=== PATIENT | male | born 1955 | race Caucasian/White ===

== ENCOUNTER 2020-01-09 15:08 | Inpatient (IN) | payer OTHER ==
[~2020-01-09] VITALS: Ht 182.9 cm; Wt 150.0 kg
[2020-01-09 15:59] LABS: BASOPHILS ABSOLUTE AUTO 0.04 K/mm3 (0.00-0.23); BASOPHILS PERCENT AUTO 0 % (0-2); EOSINOPHILS ABSOLUTE AUTO 0.21 K/mm3 (0.00-0.68); EOSINOPHILS PERCENT AUTO 2 % (0-6); Hematocrit 44.9 % (37.0-53.0); Hemoglobin 14.6 g/dL (13.5-17.5); IMMATURE GRAN ABSOLUTE AUTO 0.05 K/mm3 (0.00-0.10); IMMATURE GRAN PERCENT AUTO 1 % (0-1); LYMPHOCYTES ABSOLUTE AUTO 1.23 K/mm3 (0.84-5.20); LYMPHOCYTES PERCENT AUTO 14 % (21-46); MONOCYTES ABSOLUTE AUTO 0.65 K/mm3 (0.16-1.47); MONOCYTES PERCENT AUTO 7 % (4-13); Mean Corpuscular HGB 29.3 pg (26.0-34.0); Mean Corpuscular HGB Conc 32.5 g/dL (31.5-36.5); Mean Corpuscular Volume 90 fL (80-100); Mean Platelet Volume 9.4 fL (9.1-12.4); NEUTROPHILS ABSOLUTE AUTO 6.76 K/mm3 (1.96-9.15); NEUTROPHILS PERCENT AUTO 76 % (41-73); Platelet Count 251 K/mm3 (150-400); RDW Coefficient Variation 14.9 % (11.7-14.2); RDW Standard Deviation 48.8 fL (35.1-46.3); Red Blood Cell Count 4.99 M/mm3 (4.30-5.90); White Blood Cell Count 8.94 K/mm3 (4.00-11.30)
[2020-01-09 16:23] LABS: Alanine Aminotransfer (ALT/SGP 41 U/L (12-78); Albumin, Blood 3.8 g/dL (3.4-5.0); Albumin/Globulin Ratio 1.1 (0.8-1.8); Alk Phos 164 U/L (50-136); Anion Gap 6 mmol/L (6-16); Aspartate Aminotrans (AST/SGOT 32 U/L (12-37); Bilirubin, Total 1.3 mg/dL (0.1-1.0); Blood Urea Nitrogen 21 mg/dL (8-24); Bun/Creatinine Ratio 19.1 (12.0-20.0); CO2, Blood 28 mmol/L (21-32); Calcium, Blood 8.6 mg/dL (8.5-10.1); Chloride, Blood 105 mmol/L (98-108); Globulin, Blood 3.4 g/dL (2.2-4.0); Glomerular Filtration Rate >60 (60-); Glucose, Blood 147 mg/dL (70-99); Potassium, Blood 3.9 mmol/L (3.5-5.5); Sodium, Blood 139 mmol/L (136-145); Total Protein, Blood 7.2 g/dL (6.4-8.2); Troponin I <0.015 ng/mL (0.000-0.040)
[2020-01-09] MEDS ORDERED: ALLO300 PO (17:50)
[2020-01-09] MEDS ORDERED: Amiodarone HCl200 MG PO (17:51)
[2020-01-09] MEDS ORDERED: METO100ER PO (17:52)
[2020-01-09] MEDS ORDERED: Prinivil10 MG PO (17:53)
[2020-01-09] MEDS ORDERED: FURO40 PO (17:54)
[2020-01-09] MEDS ORDERED: DULO30 PO (17:54)
[2020-01-09] MEDS ORDERED: ELIQUIS5 M2 PO (17:55)
[2020-01-09] MEDS ORDERED: LIPITOR80 MG PO (17:56)
[2020-01-09] MEDS ORDERED: METF500 PO (17:56)
[2020-01-09] MEDS ORDERED: TRAZ50 PO (17:57)
[2020-01-10 00:37] LABS: Hematocrit 41.9 % (37.0-53.0); Hemoglobin 13.8 g/dL (13.5-17.5); Mean Corpuscular HGB 29.7 pg (26.0-34.0); Mean Corpuscular HGB Conc 32.9 g/dL (31.5-36.5); Mean Corpuscular Volume 90 fL (80-100); Mean Platelet Volume 9.5 fL (9.1-12.4); Platelet Count 209 K/mm3 (150-400); RDW Coefficient Variation 14.9 % (11.7-14.2); Red Blood Cell Count 4.64 M/mm3 (4.30-5.90); White Blood Cell Count 8.44 K/mm3 (4.00-11.30)
[2020-01-10 00:53] LABS: Anion Gap 3 mmol/L (6-16); Blood Urea Nitrogen 25 mg/dL (8-24); CO2, Blood 32 mmol/L (21-32); Calcium, Blood 8.3 mg/dL (8.5-10.1); Chloride, Blood 106 mmol/L (98-108); Creatinine, Blood 1.19 mg/dL (0.60-1.20); Glomerular Filtration Rate >60 (60-); Glucose, Blood 119 mg/dL (70-99); Potassium, Blood 3.9 mmol/L (3.5-5.5); Sodium, Blood 141 mmol/L (136-145)
--- NOTE | 2020-01-10 05:20 | NUR ---
SHIFT SUMMARY PT SLEEPING IN ROOM COMFORTABLY AT THIS TIME. NO ACUTE CHANGES IN STATUS SINCE ARRIVAL. PT HAS DENIED ANY FUTHER CP SINCE ARRIVAL. REPS EVEN UNLABORED ON RA W/ SATS >92%, PT WEARS CPAP AT NOC D/T STEPH. CARDIZEM GTT INFUSING IN PIV AT 5ML/HR. PT REMAINS IN AFIB W/ RATE AVG 80'S-90'S. PT DENIES OTHER NEEDS AND IS INDEPENDENT IN ROOM. CALL LIGHT IN REACH.
--- NOTE | 2020-01-10 11:34 | NUR ---
PHARMACY FAXED FOR NEW BAG OF CARDIZEM, PT INTERMITTENTLY AMBULATING IN [place]
--- NOTE | 2020-01-10 11:50 | NUR ---
Patient is sitting on EOB and alert. Patient shares about his medical issues, his recent move to the area, his family, and his Zoroastrianism sonja. Patient explains about the process he is in with the series of tests being run. Patient talks about his concerns. I listen empathically, normalize patient's experience and provide pastoral mental health counselor and prayer. Patient responds well and shows signs of an elevated mood and voices appreciation for the visit. I will continue to remain available to patient and family.
--- NOTE | 2020-01-10 17:48 | NUR ---
SHIFT NOTE PT HAS REMAINED A/O X3, INDEPENDANT IN ROOM AMBULATING IN [place] WITH EVEN STEADY GAIT. PT IS HAPPY AND CONVERSIVE IN FULL SENTENCES T/O THE DAY. CARDIZEM WAS STOPPED THIS AM BY DR BONILLA. PT HAS BEEN RESTING WELL IN ROOM T/O THE DAY. NO ACUTE CHANGES THIS SHIFT
--- NOTE | 2020-01-10 19:15 | NUR ---
Assumed Care Assumed care of pt at approx 1900, pt presents sitting in chair, at bedside, pt alert and oriented, conversing appropriately with staff, VSS. Pt denies chest pressure at this time. Tele shows afib with rates 100-105, denies palpitations at this time. See shift assessment for detailed systems assessment. Plan for NPO after midnight for stress test at 0830 tomorrow AM. No acute concerns to note at this time.
--- NOTE | 2020-01-11 05:43 | NUR ---
Shift Summary Pt with no acute events overnight. He remains in afib with rates 100-105. Denies chest pressure, palpitations, SOB all shift. VSS. Pt with steady gait, ambulates to bathroom without assistance, denies dizziness with ambulation. Plan for stress test today, NPO since midnight per orders. No caffine since 1800 01/09. Pt remains alert and oriented, no acute changes from initial shift assessment. Will continue to monitor.
--- NOTE | 2020-01-11 06:15 | NUR ---
Pt converted from Afib to Sinus Pete at 45 BPM. Pt asx, alert. Pt instructed to use call light before ambulation d/t change in rhythm and rate. Pt verbalizes understanding and compliance.
--- NOTE | 2020-01-11 12:30 | NUR ---
UPDATE: DR SPENCER CALLED AND STATED PT STRESS TEST ABNORMAL AND TO CALL DR BONILLA TO NOTIFY OF THE RESULTS UPLOADED. CALL TO DR BONILLA TO HIS CELL PHONE MESSAGE LEFT. DR IRENE MONROE TO THE UNIT AT APPROX 1230 REVIEWS THE SITUATION WITH THE PT. PT AND FAMILY EDUCATED ON ANGIOGRAM TO BE DONE PT SIGNS CONSENT AND AGREES TO PLAN OF CARE.
--- NOTE | 2020-01-11 13:15 | NUR ---
[facility]
--- NOTE | 2020-01-11 14:57 | NUR ---
RETURN FROM TIE PRESSER: PT ARIVES FROM [facility] A/O X 4. DENEIS ANY CHEST PAIN OR PRESSURE. R TR-BAND IN PLACE WITH APROX 12ML OF AIR IN. NO SWELLING, REDNESS OR TENDERNESS NOTED AT THIS R RADIAL SITE. PT AMBULATS TO THE BATHROOM AFTER ARIVING TO THE ROOM. NO ACUTE DISTRESS NOTED. REPORT OF NO STENTS PLACED WHILE IN ANGIO. CALL LIGHT IN REACH. PT IS SITTING UP IN THE CHAIR AT THE BEDSIDE. PT EDUCATED ON R ARM/HAND RESTRICTIONS AND KEEPING ARM BOARD IN PLACE TO RESTRICT MOVEMENT.
--- NOTE | 2020-01-11 19:30 | NUR ---
ASSUMED CARE BEDSIDE REPORT RECIEVED. PT IS AWAKE, ALERT, AND ORIENTED. PT ON ROOM AIR. VITAL SIGNS STABLE. PT DENIES CHEST PAIN OR DISCOMFORT. TR BAND IN PLACE TO RIGHT RADIAL SITE. ARM BOARD IN PLACE. SITE IS SOFT, NONTENDER, NO HEMATOMA. PT INDEPENDENT IN ROOM. WILL CONTINUE TO MONITOR.
--- NOTE | 2020-01-12 05:23 | NUR ---
SHIFT SUMMARY NO ACUTE CHANGES THIS SHIFT. PT HAS SLEPT OFF AND ON THROUGHOUT THE SHIFT. WHEN AWAKE PT REMAINS ALERT AND ORIENTED. PT INDEPENDENT IN ROOM AND REPOSITIONS SELF WELL IN BED. PT HAS DENIED CHEST PAIN OR DISCOMFORT. PT USING CPAP WHILE SLEEPING. VITAL SIGNS HAVE REMAINED STABLE. RIGHT RADIAL ACCESS SITE C/D/I WITH OPSITE DRESSING AND ARM BOARD IN PLACE. NO OOZING, OR HEMATOMA NOTED. WILL CONTINUE TO MONITOR AND REPORT OFF TO ONCOMING RN.
--- NOTE | 2020-01-12 07:25 | NUR ---
PATIENT RESTING COMFORTABLY IN BED, NO SIGNS OF ACUTE DISTRESS. WRIST PUNCTURE SITE NON-TENDER AND NO DISCHARGE NOTED. WCTM.
[2020-01-12] MEDS ORDERED: ASPI81CH PO (10:05)
[2020-01-12] MEDS ORDERED: Isosorbide Mono60 MG PO (10:06)
[2020-01-12] MEDS ORDERED: NITR.4SL SL (10:07)
[2020-01-12] MEDS ORDERED: OMEP20ER PO (10:07)
--- NOTE | 2020-01-12 11:21 | NUR ---
PATIENT PROVIDED WITH DISCHARGE INFO REGARDING FOLLOW-UP, NEW MEDICATIONS, REASONS TO RETURN TO THE HOSPITAL, AND INSTRUCTIONS FOR CARING FOR RADIAL PUNCTURE SITE. QUESTIONS ANSWERED AND PATIENT VERBALIZED UNDERSTANDING. NO SIGNS OF ACUTE DISTRESS, PATIENT ABLE TO AMBULATE SAFELY AT DISCHARGE.
== END 2020-01-12 11:27 | disposition home or self-care (01) | DRG 287 ==
LOC: ER 15:08 → PCU 15:09 → ER 20:52 → PCU 20:52
PROVIDERS: Physician Assistant; ADMIT Internal Medicine
PROC: 4A023N7 Measurement of Cardiac Sampling and Pressure, Left Heart, Percutaneous Approach (ICD-10-PCS; principal; 2020-01-11)
PROC: B211YZZ Fluoroscopy of Multiple Coronary Arteries using Other Contrast (ICD-10-PCS; 2020-01-11)
PROC: 4A033BC Measurement of Arterial Pressure, Coronary, Percutaneous Approach (ICD-10-PCS; 2020-01-11)
DX: I25.10 Atherosclerotic heart disease of native coronary artery without angina pectoris (principal); I50.32 Chronic diastolic (congestive) heart failure; Z68.41 Body mass index [BMI] 40.0-44.9, adult; I11.0 Hypertensive heart disease with heart failure; E11.9 Type 2 diabetes mellitus without complications; E78.5 Hyperlipidemia, unspecified; I48.0 Paroxysmal atrial fibrillation; M10.9 Gout, unspecified; F32.9 Major depressive disorder, single episode, unspecified; G47.00 Insomnia, unspecified; E66.01 Morbid (severe) obesity due to excess calories; Z95.5 Presence of coronary angioplasty implant and graft; Z79.82 Long term (current) use of aspirin; Z79.01 Long term (current) use of anticoagulants; Z79.4 Long term (current) use of insulin; I25.2 Old myocardial infarction
CPT/HCPCS: 36415; 71046; 78452; 80048; 80053; 82947; 84484; 85025; 85027; 85347; 93005; 93010; 93017; 93306; 93458; 93571; 94660; 96361; 96365; 96366; 96375; 96376; 99152; 99153; 99285-25; A9270; A9270-GY; A9500; C1769; C1887; C1894; G0378; J0153; J0280; J1644; J2250; J2785; J3010; J7030; J7040; Q9967

== ENCOUNTER 2021-02-09 11:37 | Inpatient (IN) | payer OTHER ==
[~2021-02-09] VITALS: Ht 182.9 cm; Wt 162.9 kg
[~2021-02-09 11:37] MED LIST: ALLO300 PO; Amiodarone HCl200 MG PO; Aspirin EC81 MG PO; DULO30 PO; ELIQUIS5 M2 PO; FURO40 PO; Isosorbide Mono60 MG PO; LIPITOR80 MG PO; METF500 PO; METO100ER PO; NITR.4SL SL; OMEP20ER PO; Prinivil10 MG PO; TRAZ50 PO
[2021-02-09 12:23] LABS: BASOPHILS ABSOLUTE AUTO 0.07 K/mm3 (0.00-0.23); BASOPHILS PERCENT AUTO 0 % (0-2); EOSINOPHILS ABSOLUTE AUTO 0.11 K/mm3 (0.00-0.68); EOSINOPHILS PERCENT AUTO 1 % (0-6); Hematocrit 46.9 % (37.0-53.0); Hemoglobin 16.1 g/dL (13.5-17.5); IMMATURE GRAN ABSOLUTE AUTO 0.09 K/mm3 (0.00-0.10); IMMATURE GRAN PERCENT AUTO 1 % (0-1); LYMPHOCYTES ABSOLUTE AUTO 0.76 K/mm3 (0.84-5.20); LYMPHOCYTES PERCENT AUTO 5 % (21-46); MONOCYTES ABSOLUTE AUTO 1.02 K/mm3 (0.16-1.47); MONOCYTES PERCENT AUTO 6 % (4-13); Mean Corpuscular HGB 30.8 pg (26.0-34.0); Mean Corpuscular HGB Conc 34.3 g/dL (31.5-36.5); Mean Corpuscular Volume 90 fL (80-100); Mean Platelet Volume 9.8 fL (9.1-12.4); NEUTROPHILS ABSOLUTE AUTO 14.53 K/mm3 (1.96-9.15); NEUTROPHILS PERCENT AUTO 88 % (41-73); Platelet Count 212 K/mm3 (150-400); RDW Coefficient Variation 14.4 % (11.7-14.2); RDW Standard Deviation 46.7 fL (35.1-46.3); Red Blood Cell Count 5.23 M/mm3 (4.30-5.90); White Blood Cell Count 16.58 K/mm3 (4.00-11.30)
[2021-02-09 12:36] LABS: Alanine Aminotransfer (ALT/SGP 29 U/L (12-78); Albumin, Blood 3.8 g/dL (3.4-5.0); Albumin/Globulin Ratio 1.1 (0.8-1.8); Alk Phos 127 U/L (50-136); Anion Gap 9 mmol/L (6-16); Aspartate Aminotrans (AST/SGOT 26 U/L (12-37); Bilirubin, Total 1.6 mg/dL (0.1-1.0); Blood Urea Nitrogen 27 mg/dL (8-24); Bun/Creatinine Ratio 24.8 (12.0-20.0); CO2, Blood 27 mmol/L (21-32); Calcium, Blood 8.8 mg/dL (8.5-10.1); Chloride, Blood 101 mmol/L (98-108); Creatinine, Blood 1.09 mg/dL (0.60-1.20); Globulin, Blood 3.4 g/dL (2.2-4.0); Glomerular Filtration Rate >60 (60-); Glucose, Blood 188 mg/dL (70-99); Potassium, Blood 4.4 mmol/L (3.5-5.5); Sodium, Blood 137 mmol/L (136-145); Total Protein, Blood 7.2 g/dL (6.4-8.2)
[2021-02-09 13:13] LABS: Influenza A, PCR NEGATIVE (NEGATIVE); Influenza B, PCR NEGATIVE (NEGATIVE); Resp Syncytial Virus, PCR NEGATIVE (NEGATIVE); SARS-Cov-2 (COVID-19) PCR, MMC NEGATIVE (NEGATIVE)
[2021-02-09 13:18] LABS: Source, Urine Clean Catch
[2021-02-09 13:22] LABS: Appearance, Urine Clear (Clear); Bilirubin, Urine Neg (Neg); Blood, Urine 2+ (Neg); Color, Urine Amber (P-Yellow); Glucose Qualitative, Urine Neg (Neg); Ketones, Urine Neg (Neg); Leukocyte Esterase, Urine 1+ (Neg); Nitrite, Urine Neg (Neg); Protein, Urine Neg (Neg); Urobilinogen, Urine NORM (Normal)
[2021-02-09 13:56] LABS: Bacteria Few /hpf; Renal Epithelial Rare /hpf (0-Rare); Squamous Epithelial Cells Few /hpf (Few); Transitional Epithelial Cells Rare /hpf (0-Rare)
--- NOTE | 2021-02-09 18:12 | NUR ---
ADMIT NOTE RECIEVED REPORT FROM TRISTIN ORR IN ED. PT TO ROOM AT 1228, 3 PERSON ASSIST WITH SLIDER SHEET TO BED. PT WAKING TO TACTILE STIMULI, ANSWERING YES/NO QUESTIONS; ORIENTED TO SELF; REPEATING "YO". PT QUICKLY FALLS BACK TO SLEEPING. TREMORS NOTED. SWEATING UPON ADMISSION; PT SMELLED OF URINE; BED BATH ON ADMISSION. PT SAYS NO WHEN ASKED IF IN PAIN, NAUSEA AND SOB ON ADMISSION. THIS EVENING PT REPORTS HEADACHE AND NAUSEA. PT RESTING IN BED APPEAR TO BE SLEEPING MAJOIRTY OF SHIFT. REPOSITIONED Q2 T/O SHIFT. WOUNDS TO BACK, BUTTOCKS, ELBOWS AND BLE CLEANED AND MEPILEX PLACED; PICTURES TAKEN. PT RECIEVED IV ANTIBIOTICS AND THIAMINE/FOLICACID/MAGNESIUM BAG INFUSION. ELEVATED BP NOTED; TRENDING DOWN. PT HAS MINIMAL MOVEMENT TO EXTREMEITIES, APPEARS CONTRACTED AT TIMES, HOWEVER WHEN AWAKE AND REMINDED TO RELAX STAFF IS ABLE TO MOVE EXTREMITIES. OTHER VSS. NOT OTHER ACUTE CHANGES NOTED DURING SHIFT. REPORT GIVEN TO ONCOMING RN.
--- NOTE | 2021-02-09 19:48 | NUR ---
RECEIVED REPORT FROM TRISTIN GROSS IN ED. PT TO ROOM AT 1830, SBA TRANSFER TO BED. PT ORIENTED TO ROOM AND CALL LIGHT. PT EDUCATED ON FALL RISK. PT STATES HE STARTED FEEL UNWELL LAST NIGHT AND CAME IN THIS AM. ELEVATED BP NOTED, PER TELE AFIB 120'S; TEMP 101.5. PT ON CARDIZEM AT 15; AND VANCO RUNNING UPON ADMISSION TO ROOM. TYLENOL GIVEN TO TEMP. REPORT GIVEN TO ONCOMING RN.
--- NOTE | 2021-02-10 04:31 | NUR ---
SHIFT SUMMARY PATIENT IS ALERT AND ORIENTED X4. REPOSITIONS SELF IN BED, 1 PERSON ASSIST WHEN NEEDED. PATIENT INCONTINENT OF BLADDER AT TIMES, WOULD YELL OUT INSTEAD OF USING CALL LIGHT FOR HELP WITH THE URINAL. MEDICATED PER EMAR FOR RIGHT SHOULDER PAIN. PATIENT WORE HOME CPAP WHILE SLEEPING WITH 2L 02. WHEN AWAKE 02 SATS >90% ON 2L NC. PATIENTS TEMPERATURE DECREASED OVERNIGHT. DILTIAZEM gtt @15MG/HR PT AFIB AVAERAGING 114. VSS, NO ACUTE CHANGES. CALL LIGHT IN REACH.
[2021-02-10 04:49] LABS: BASOPHILS ABSOLUTE AUTO 0.03 K/mm3 (0.00-0.23); BASOPHILS PERCENT AUTO 0 % (0-2); EOSINOPHILS ABSOLUTE AUTO 0.01 K/mm3 (0.00-0.68); EOSINOPHILS PERCENT AUTO 0 % (0-6); Hematocrit 44.6 % (37.0-53.0); Hemoglobin 14.9 g/dL (13.5-17.5); IMMATURE GRAN ABSOLUTE AUTO 0.04 K/mm3 (0.00-0.10); IMMATURE GRAN PERCENT AUTO 0 % (0-1); LYMPHOCYTES ABSOLUTE AUTO 0.65 K/mm3 (0.84-5.20); LYMPHOCYTES PERCENT AUTO 5 % (21-46); MONOCYTES ABSOLUTE AUTO 0.65 K/mm3 (0.16-1.47); MONOCYTES PERCENT AUTO 5 % (4-13); Mean Corpuscular HGB 30.8 pg (26.0-34.0); Mean Corpuscular HGB Conc 33.4 g/dL (31.5-36.5); Mean Corpuscular Volume 92 fL (80-100); Mean Platelet Volume 9.4 fL (9.1-12.4); NEUTROPHILS ABSOLUTE AUTO 10.61 K/mm3 (1.96-9.15); NEUTROPHILS PERCENT AUTO 89 % (41-73); Platelet Count 142 K/mm3 (150-400); RDW Coefficient Variation 14.6 % (11.7-14.2); RDW Standard Deviation 49.3 fL (35.1-46.3); Red Blood Cell Count 4.84 M/mm3 (4.30-5.90); White Blood Cell Count 11.99 K/mm3 (4.00-11.30)
[2021-02-10 05:03] LABS: International Normalized Ratio 1.31; Prothrombin Time Results 13.9 Sec (9.7-11.5)
[2021-02-10 05:16] LABS: Alanine Aminotransfer (ALT/SGP 20 U/L (12-78); Albumin, Blood 3.3 g/dL (3.4-5.0); Alk Phos 105 U/L (50-136); Anion Gap 9 mmol/L (6-16); Aspartate Aminotrans (AST/SGOT 19 U/L (12-37); Blood Urea Nitrogen 19 mg/dL (8-24); Bun/Creatinine Ratio 16.8 (12.0-20.0); CO2, Blood 25 mmol/L (21-32); Calcium, Blood 7.6 mg/dL (8.5-10.1); Chloride, Blood 103 mmol/L (98-108); Creatinine, Blood 1.13 mg/dL (0.60-1.20); Globulin, Blood 3.4 g/dL (2.2-4.0); Glomerular Filtration Rate >60 (60-); Glucose, Blood 142 mg/dL (70-99); Magnesium, Blood 1.2 mg/dL (1.6-2.4); Potassium, Blood 3.6 mmol/L (3.5-5.5); Sodium, Blood 137 mmol/L (136-145); Total Protein, Blood 6.7 g/dL (6.4-8.2)
--- NOTE | 2021-02-10 13:51 | NUR ---
Advance Directive (AD) education/Spiritual care visit conducted. Patient voices his interest in filling out an AD. I hand patient an AD booklet and go over the importance, the purpose, the different sections of the booklet and the filing process of the AD. Patient demonstrates a clear comprhension and states that he will fill it out when he is able. Patient also shares about his Seventh Day Yazdanism sonja, his many struggles and the blessings as well. I normalize his experience and provide spiritual guidance and prayer. Patient responds well and shows signs of being encouraged in his sonja. I will continue to remain available to patient and family.
--- NOTE | 2021-02-10 14:32 | NUR ---
Met pt in his room for a visit. He is pleasant and cooperative. He tells me he and his moved to [place] from [facility] about a year ago, and he is adjusting to the changes, including the new landscaped yard. He reports the yard is very eneven and causing a few of his "tumbles". He states he is remembering back when his aunts and uncles would fall, resulting in injuries. He states he doesn't believe he needs any adaptive equipment at this time, just needs to be more mindful of his steps, and take his time. He was already given AD paperwork per Wai S note. No changes to pt's plan of care at this time.
--- NOTE | 2021-02-10 18:35 | NUR ---
SHIFT SUMMARY PT A&Ox4; CALM AND COOPERATIVE WITH CARE. PT RESTING IN BED THIS AM, UP TO CHAIR FOR LUNCH AND DINNER, SBA. PT SOB WITH WITH EXERTION, ON 2L O2 VIA NC, THIS AM, TITRATED TO 1L O2 VIA NC. PT DENEIS PAIN, CHEST PAIN, NASUEA AND DIZZINESS. PT CONTINENT DURING SHIFT. BLE REDNESS NOTES, WORSE TO BLE. PT RECEIVING IV ANTIBIOTICS. HR 110'S AFTER CARDIZEM TURNED OFF. OTHER VSS. NO OTHER ACUTE CHANGES NOTED DURING SHIFT. WILL CONTINUE TO MONITOR UNTIL REPORT GIVEN TO ONCOMING RN.
--- NOTE | 2021-02-11 04:14 | NUR ---
SHIFT SUMMARY PATIENT FOUND TO BE A VERY PLEASANT GENTLMAN WHO IS A&OX4, FOLLOWING COMMANDS. STILL FEELING OVERALL WEAK COMPARED TO BASELINE. UP WITH ONE ASSIST TO COMMODE. WAS WEARING 1LNC THROUGHOUT DAYSHIFT BUT HAD TO INCREASE WHEN SWITCHED TO CPAP WITH 7L BLED IN. NO ACUTE DISTRESS NOTED. ALLISON. DRY COUGH. AFIB ON THE MONITOR AVERAGING IN HIGH 90'S. CARDIAC DIET WITH SUGAR CHECKS BEFORE MEALS. USING URINAL TO VOID. TYLENOL GIVEN FOR RIGHT SHOULDER PAIN. BLE REDNESS/TINGLING WITH R>L. IV ABX INFUSING PER ORDER. WILL CONTINUE TO MONITOR.
[2021-02-11 05:27] LABS: BASOPHILS ABSOLUTE AUTO 0.02 K/mm3 (0.00-0.23); BASOPHILS PERCENT AUTO 0 % (0-2); EOSINOPHILS ABSOLUTE AUTO 0.25 K/mm3 (0.00-0.68); EOSINOPHILS PERCENT AUTO 3 % (0-6); Hematocrit 39.3 % (37.0-53.0); Hemoglobin 13.2 g/dL (13.5-17.5); IMMATURE GRAN ABSOLUTE AUTO 0.04 K/mm3 (0.00-0.10); IMMATURE GRAN PERCENT AUTO 1 % (0-1); LYMPHOCYTES ABSOLUTE AUTO 1.04 K/mm3 (0.84-5.20); LYMPHOCYTES PERCENT AUTO 14 % (21-46); MONOCYTES ABSOLUTE AUTO 0.83 K/mm3 (0.16-1.47); MONOCYTES PERCENT AUTO 11 % (4-13); Mean Corpuscular HGB 30.3 pg (26.0-34.0); Mean Corpuscular HGB Conc 33.6 g/dL (31.5-36.5); Mean Corpuscular Volume 90 fL (80-100); Mean Platelet Volume 9.5 fL (9.1-12.4); NEUTROPHILS ABSOLUTE AUTO 5.44 K/mm3 (1.96-9.15); NEUTROPHILS PERCENT AUTO 71 % (41-73); Platelet Count 142 K/mm3 (150-400); RDW Coefficient Variation 14.8 % (11.7-14.2); Red Blood Cell Count 4.35 M/mm3 (4.30-5.90); White Blood Cell Count 7.62 K/mm3 (4.00-11.30)
[2021-02-11 06:01] LABS: Alanine Aminotransfer (ALT/SGP 20 U/L (12-78); Albumin, Blood 2.9 g/dL (3.4-5.0); Albumin/Globulin Ratio 0.9 (0.8-1.8); Alk Phos 95 U/L (50-136); Anion Gap 5 mmol/L (6-16); Aspartate Aminotrans (AST/SGOT 21 U/L (12-37); Bilirubin, Total 1.5 mg/dL (0.1-1.0); Blood Urea Nitrogen 21 mg/dL (8-24); Bun/Creatinine Ratio 19.8 (12.0-20.0); CO2, Blood 29 mmol/L (21-32); Calcium, Blood 7.3 mg/dL (8.5-10.1); Chloride, Blood 105 mmol/L (98-108); Creatinine, Blood 1.06 mg/dL (0.60-1.20); Globulin, Blood 3.3 g/dL (2.2-4.0); Glomerular Filtration Rate >60 (60-); Glucose, Blood 156 mg/dL (70-99); Magnesium, Blood 1.7 mg/dL (1.6-2.4); Phosphorus, Blood 2.6 mg/dL (2.5-4.9); Potassium, Blood 3.6 mmol/L (3.5-5.5); Sodium, Blood 139 mmol/L (136-145); Total Protein, Blood 6.2 g/dL (6.4-8.2); Vancomycin, Trough 19.8 ug/mL (5.0-10.0)
--- NOTE | 2021-02-11 10:38 | NUR ---
THIS RN AGREES WITH STUDENT NURSE SHIFT ASSESSMENT DOCUMENTATION.
--- NOTE | 2021-02-11 13:59 | NUR ---
Spiritual care visit conducted. Patient shares about his daughter, Nat, who is a operations systems specialist in [place] and his son Juvencio, who he currently lives with and how proud he is of them both. Patient discusses his sonja in greater detail and why it means so much to him in times like these. I listen empathically and provide companionship and prayer. Patient responds well and shows igns of an elevated mood. I will continue to remain available to patient and family.
--- NOTE | 2021-02-11 18:35 | NUR ---
SHIFT SUMMARY PT A/O X AND COOPERATIVE OF CARE. PT WAS HYPERTENSIVE AND TACHY THROUGHOUT SHIFT, PRN METOPROLOL GIVEN PER EMAR. PT REMAINED IN AFIB THIS SHIFT, BY END OF SHIFT PT HR WAS IN 110s. PT INDEPENT WITHIN ROOM BUT BECOMES SOB WITH MINIMAL EXERTION. PT AMBULATED TO TOILET AND RECLINER. PT O2 SATS WERE IN THE LOW 90s THROUGHOUT SHIFT ON RA AND 1L NASAL CANULA. PT HAD C/O LEFT LEG PAIN TAHT WAS TREATED WITH PRN FENTANYL AND TYLENOL PER EMAR. PT EAGER TO GO FOR WALK BUT BECOMES SOB WHEN AMBULATING. PT DENIED CP THROUGHOUT SHIFT.
--- NOTE | 2021-02-11 18:52 | NUR ---
THIS RN AGREES WITH STUDENT NURSE SHIFT SUMMARY NOTE.
--- NOTE | 2021-02-12 03:49 | NUR ---
SHIFT SUMMARY PATIENT A PLEASANT GENTLEMAN WHO IS A&O X4, HALLMAN, AND FOLLOWING COMMANDS. GENERALIZED WEAKNESS MUCH IMPROVED PER PATIENT REPORT. FOUND TO BE ON RA SATING IN LOW 90'S WITH NO ACUTE DISTRESS NOTED. DRY COUGH CONTINUES. REMAINS IN AFIB IN 90'S-LOW 100'S. TOLERATING CARDIAC DIET. AMBULATING TO BATHROOM TO VOID AD SEGUN. PAIN TO RIGHT LEG WORSE WHEN IN BED AND PRN FENTANYL X1 GIVEN WITH MUCH RELIEF. RIGHT LEG RED, WARM, AND +3 EDEMA ELEVATED ON PILLOW. FOUND TO HAVE DVT IN US STUDY DONE AT START OF SHIFT. LOVENOX STARTED AND GIVEN. IV ABX INFUSED PER ORDER. WILL CONTINUE TO MONITOR.
[2021-02-12 06:13] LABS: Vancomycin, Trough 22.6 ug/mL (5.0-10.0)
--- NOTE | 2021-02-12 18:32 | NUR ---
SHIFT SUMMARY PT ALERT AND ORIENTED X 4. HR STABLE. TACHYCARDIC WITH EXERTION.HR LOWERS TO 90'S-110'S WHEN AT REST. MEDICATION CHANGES PER PHYSICIAN, SEE EMAR. NO CP OR PRESSURE REPORTED. PT IND IN ROOM TO BATHROOM. WILL CONTINUE TO MONITOR UNTIL REPORT GIVEN TO NIGHTSHIFT RN.
--- NOTE | 2021-02-12 19:10 | NUR ---
ASSUMED CARE RECEIVED REPORT FROM TRISTIN JOHNSTON. PT RESTING IN RECLINER, TALKING TO FAMILY ON PHONE. DENIES NEEDS AT THIS TIME. CALL LIGHT, POSSESSIONS IN REACH.
[2021-02-13 04:09] LABS: Hematocrit 39.6 % (37.0-53.0); Hemoglobin 13.3 g/dL (13.5-17.5); Mean Corpuscular HGB 30.2 pg (26.0-34.0); Mean Corpuscular HGB Conc 33.6 g/dL (31.5-36.5); Mean Corpuscular Volume 90 fL (80-100); Mean Platelet Volume 10.8 fL (9.1-12.4); Platelet Count 170 K/mm3 (150-400); RDW Coefficient Variation 14.5 % (11.7-14.2); RDW Standard Deviation 47.4 fL (35.1-46.3); Red Blood Cell Count 4.41 M/mm3 (4.30-5.90); White Blood Cell Count 5.93 K/mm3 (4.00-11.30)
[2021-02-13 04:31] LABS: Anion Gap 6 mmol/L (6-16); Blood Urea Nitrogen 19 mg/dL (8-24); Bun/Creatinine Ratio 21.4 (12.0-20.0); CO2, Blood 26 mmol/L (21-32); Calcium, Blood 8.5 mg/dL (8.5-10.1); Chloride, Blood 107 mmol/L (98-108); Creatinine, Blood 0.89 mg/dL (0.60-1.20); Glomerular Filtration Rate >60 (60-); Glucose, Blood 148 mg/dL (70-99); Phosphorus, Blood 2.7 mg/dL (2.5-4.9); Potassium, Blood 4.7 mmol/L (3.5-5.5); Sodium, Blood 139 mmol/L (136-145)
--- NOTE | 2021-02-13 04:49 | NUR ---
BLANKET WINDER HELPER SUMMARY PT ASLEEP, IN NO ACUTE DISTRESS. VS REVIEWED, WNL, O2 SATS >92% ON RA OR CPAP; HR AVERAGING IN THE 90'S TO 110'S. NO C/O CP, PRESSURE, SOB. RLE INCREASINGLY EDEMATOUS, RED AND HOT TO PALPATION, WITH PERIODS OF THROBBING PAIN. PT MEDICATED FOR PAIN PER EMAR, ENCOURAGED TO ELEVATE EXTREMITY WHILE IN BED. NO OTHER ACUTE CHANGES IN CONDITION NOTED OVERNIGHT. NO ACUTE NEEDS ASSESSED AT THIS TIME. CALL LIGHT, POSSESSIONS IN REACH, WILL CONTINUE TO PROVIDE CARE UNTIL REPORT GIVEN TO ONCOMING RN.
[2021-02-13 11:27] LABS: Vancomycin, Trough 14.9 ug/mL (5.0-10.0)
[2021-02-13 14:27] LABS: International Normalized Ratio 1.14; Prothrombin Time Results 12.2 Sec (9.7-11.5)
--- NOTE | 2021-02-13 18:23 | NUR ---
SHIFT SUMMARY PT ALERT AND ORIENTED X 4. BP STABLE. OXYGEN SATURATION MAINTAINED ABOVE 92% ON RA. HR TACHYCARDIC AT TIMES. MEDICATION GIVEN PER EMAR. NO CP OR PRESSURE REPORTED. PT IND IN ROOM. PT ENCOURAGED TO ELEVATE LEGS TO DECREASE SWELLING PER PHYSICIAN. WILL CONTINUE TO MONITOR UNTIL REPORT GIVEN TO NIGHTSHIFT RN.
[2021-02-14 04:38] LABS: International Normalized Ratio 1.11; Prothrombin Time Results 11.9 Sec (9.7-11.5)
[2021-02-14 04:45] LABS: Anion Gap 6 mmol/L (6-16); Blood Urea Nitrogen 17 mg/dL (8-24); Bun/Creatinine Ratio 17.6 (12.0-20.0); CO2, Blood 28 mmol/L (21-32); Calcium, Blood 8.2 mg/dL (8.5-10.1); Chloride, Blood 105 mmol/L (98-108); Creatinine, Blood 0.96 mg/dL (0.60-1.20); Glomerular Filtration Rate >60 (60-); Glucose, Blood 146 mg/dL (70-99); Phosphorus, Blood 3.2 mg/dL (2.5-4.9); Potassium, Blood 3.8 mmol/L (3.5-5.5); Sodium, Blood 139 mmol/L (136-145)
--- NOTE | 2021-02-14 06:43 | NUR ---
SHIFT SUMMARY PATIENT IS ALERT, ORIENTED, AND COOPERATIVE WITH CARE. INDEPENDENT IN THE ROOM. CPAP @ NIGHT WHILE SLEEPING. 02 SATS 96% ON RA. AFIB 100-110s. RIGHT LEG ELEVATED AND CAP REFILL <3 SECONDS, PAIN WITHIN PROPORTION. VSS, NO ACUTE CHANGES. CALL LIGHT IN REACH.
--- NOTE | 2021-02-14 11:15 | NUR ---
UPDATE PHYSICIAN AT BEDSIDE. PT TO BE DISHCARGED TODAY. VETERINARY LABORATORY DIAGNOSTICIAN NOTIFIED OF REFERRAL TO [facility] PER PHYSICIAN.
[2021-02-14] MEDS ORDERED: ACET325 PO (11:36)
[2021-02-14] MEDS ORDERED: ENOX80I SC (11:37)
[2021-02-14] MEDS ORDERED: WARF7.5 PO (11:38)
--- NOTE | 2021-02-14 14:40 | NUR ---
PT DISCHARGE PT PROVIDED WITH DISCHARGE INSTRUCTIONS. PT INSTRUCTED ON HOW TO GIVE SELF SUBCUTANEOUS INECTIONS. PT VERBALLY READ-BACK DIRECTIONS ON HOW TO GIVE SELF SUBCUTANEOUS INJECTIONS. GRADES 9 THRU 12 VISITING TEACHER SPOKE WITH COOK ROOM SUPERVISOR REGARDING [facility] SET UP. PT SIGNED DISCHARGE PAPERWORK. IV REMOVED. TELEMETRY REMOVED. VS REMAINED STABLE. PT TAKEN BY WHEELCHAIR TO 'S VEHICLE WITH ALL BELONGINGS AND DISCHARGE PAPERWORK BY THE SECURITY STRATEGIST.
== END 2021-02-14 14:03 | disposition home or self-care (01) | DRG 872 ==
LOC: ER 11:37 → PCU 17:31
PROVIDERS: Internal Medicine; Nurse Practitioner Acute Care; Pharmacist; Physician Assistant; ADMIT Internal Medicine
PROC: 5A09357 Assistance with Respiratory Ventilation, Less than 24 Consecutive Hours, Continuous Positive Airway Pressure (ICD-10-PCS; principal; 2021-02-12)
DX: A41.9 Sepsis, unspecified organism (principal); Z68.42 Body mass index [BMI] 45.0-49.9, adult; I50.32 Chronic diastolic (congestive) heart failure; L03.115 Cellulitis of right lower limb; I82.412 Acute embolism and thrombosis of left femoral vein; E87.2 Acidosis; Z79.01 Long term (current) use of anticoagulants; R65.20 Severe sepsis without septic shock; Z79.82 Long term (current) use of aspirin; Z95.5 Presence of coronary angioplasty implant and graft; Z20.822 Contact with and (suspected) exposure to COVID-19; Z87.891 Personal history of nicotine dependence; Z96.649 Presence of unspecified artificial hip joint; E66.01 Morbid (severe) obesity due to excess calories; M10.9 Gout, unspecified; E11.9 Type 2 diabetes mellitus without complications; I11.0 Hypertensive heart disease with heart failure; E78.5 Hyperlipidemia, unspecified; I48.0 Paroxysmal atrial fibrillation; G47.33 Obstructive sleep apnea (adult) (pediatric); I25.10 Atherosclerotic heart disease of native coronary artery without angina pectoris
CPT/HCPCS: 0241U; 36415; 51701; 71045; 73030; 73201; 73700; 80053; 80069; 80202; 81001; 82330; 82947; 83605; 83735; 83880; 84100; 84484; 84550; 85025; 85027; 85610; 85651; 85730; 86140; 87040; 93005; 93010; 93971; 94762; 96365; 96366; 96368; 96375; 96376; 99285-25; A9270; A9270-GY; J0696; J1650; J1940; J3010; J3370; J3475; J7030; J7050; Q9967

== ENCOUNTER 2021-02-19 20:21 | Observation (INO) | payer OTHER ==
[~2021-02-19] VITALS: Ht 182.9 cm; Wt 161.2 kg
[~2021-02-19 20:21] MED LIST changes: +ACET325 PO; +ENOX80I SC; +WARF7.5 PO
[2021-02-19 21:24] LABS: BASOPHILS ABSOLUTE AUTO 0.05 K/mm3 (0.00-0.23); BASOPHILS PERCENT AUTO 1 % (0-2); EOSINOPHILS ABSOLUTE AUTO 0.18 K/mm3 (0.00-0.68); EOSINOPHILS PERCENT AUTO 3 % (0-6); Hematocrit 41.3 % (37.0-53.0); Hemoglobin 13.6 g/dL (13.5-17.5); IMMATURE GRAN ABSOLUTE AUTO 0.12 K/mm3 (0.00-0.10); IMMATURE GRAN PERCENT AUTO 2 % (0-1); LYMPHOCYTES ABSOLUTE AUTO 1.34 K/mm3 (0.84-5.20); LYMPHOCYTES PERCENT AUTO 23 % (21-46); MONOCYTES ABSOLUTE AUTO 0.57 K/mm3 (0.16-1.47); MONOCYTES PERCENT AUTO 10 % (4-13); Mean Corpuscular HGB 29.8 pg (26.0-34.0); Mean Corpuscular HGB Conc 32.9 g/dL (31.5-36.5); Mean Corpuscular Volume 91 fL (80-100); Mean Platelet Volume 9.2 fL (9.1-12.4); NEUTROPHILS ABSOLUTE AUTO 3.59 K/mm3 (1.96-9.15); NEUTROPHILS PERCENT AUTO 61 % (41-73); Platelet Count 206 K/mm3 (150-400); RDW Coefficient Variation 14.7 % (11.7-14.2); RDW Standard Deviation 48.5 fL (35.1-46.3); Red Blood Cell Count 4.56 M/mm3 (4.30-5.90); White Blood Cell Count 5.85 K/mm3 (4.00-11.30)
[2021-02-19 21:38] LABS: International Normalized Ratio 1.9; Prothrombin Time Results 19.8 Sec (9.7-11.5)
[2021-02-19 21:47] LABS: Alanine Aminotransfer (ALT/SGP 41 U/L (12-78); Albumin, Blood 3.6 g/dL (3.4-5.0); Albumin/Globulin Ratio 1.1 (0.8-1.8); Alk Phos 119 U/L (50-136); Anion Gap 5 mmol/L (6-16); Aspartate Aminotrans (AST/SGOT 21 U/L (12-37); Bilirubin, Total 0.7 mg/dL (0.1-1.0); Blood Urea Nitrogen 20 mg/dL (8-24); Bun/Creatinine Ratio 17.2 (12.0-20.0); CO2, Blood 29 mmol/L (21-32); Calcium, Blood 8.3 mg/dL (8.5-10.1); Chloride, Blood 104 mmol/L (98-108); Creatinine, Blood 1.16 mg/dL (0.60-1.20); Globulin, Blood 3.3 g/dL (2.2-4.0); Glomerular Filtration Rate >60 (60-); Glucose, Blood 150 mg/dL (70-99); Potassium, Blood 4.3 mmol/L (3.5-5.5); Sodium, Blood 138 mmol/L (136-145); Total Protein, Blood 6.9 g/dL (6.4-8.2); Troponin I <0.015 ng/mL (0.000-0.040)
--- NOTE | 2021-02-20 05:35 | NUR ---
ADMIT TO PCU 5, TRANS FROM GURNEY TO BED WITHOUT ASSISST. SEE [facility] ADMISSION ASSESSMENT FOR FULL ASSESSMENT. SITTING ON SIDE OF BED CONVERSING CLEARLY AND APPRIOPRIATLY.
[2021-02-20 07:09] LABS: Magnesium, Blood 1.6 mg/dL (1.6-2.4); Phosphorus, Blood 2.5 mg/dL (2.5-4.9)
--- NOTE | 2021-02-20 12:22 | NUR ---
PT ALERT AND ORIENTED X4. ON ROOM AIR SATING ABOVE 94%. TELE SHOWING AFIB WITH HR 100-120'S. DENIES CHEST PAIN BUT STATES HE CAN FEEL HIS HEART RACING. RIGHT LOWER LEG SWELLING AND REDNESS. COMPLAINS OF PAIN IN RIGHT LEG, RELIEVED WITH TYLENOL AND ELEVATION. NEURO WNL. ACHS, BLOOD SUGARS. ABLE TO TURN SELF IN BED AND MOVE AROUND INDEPENDENTLY. VITAL SIGNS STABLE. CARDIZEM DRIP INFUSING AT 5MG/HR AT THIS TIME. WILL CONTINUE TO MONITOR.
[2021-02-20 15:14] LABS: C-REACTIVE PROTEIN, EXT RANGE 0.645 mg/dL (0.000-0.300)
--- NOTE | 2021-02-20 16:42 | NUR ---
CARDIZEM DRIP TURNED OFF, PT MAINTAING HR IN THE 90'S. ISTRATE NOTIFIED, NEW ORDERS FOR PO CARDIZEM. 1ST DOSE GIVEN. WILL CONTINUE TO MONITOR HR. VITAL SIGNS STABLE. PT UP IN CHAIR, STATES HE IS FEELING MUCH BETTER THIS EVENING.
--- NOTE | 2021-02-20 18:16 | NUR ---
SHIFT SUMMARY: PT REMAINS ALERT AND ORIENTED X4. ON ROOM AIR, USING CPAP WHEN SLEEPING. SLEEPING THROUGHOUT THE DAY. UP IN CHAIR FOR DINNER. PT REMAINS IN AFIB. HR INCREASING TO LOW 100'S. ORDERS TO RESTART CARDIZEM DRIP AT 5MG/HR PER ISMIRIAM. CARDIZEM INFUSING. PT COMPLAINS OF PAIN IN RIGHT LOWER LEG, MEDICATED PER EMAR WITH TYLENOL AND ELEVATING IN BED. VITALS REMAIN STABLE. NO ACUTE CHANGES. IV ANTIBIOTICS INFUSED THIS SHIFT. INDEPENDENT TO BATHROOM. ACHS BLOOD SUGARS. CALL LIGHT REMAINED IN REACH AND BED IN LOW LOCKED POSITION. WILL CONTINUE TO MONITOR.
[2021-02-21 04:23] LABS: Hematocrit 39.9 % (37.0-53.0); Hemoglobin 13.2 g/dL (13.5-17.5); Mean Corpuscular HGB 29.8 pg (26.0-34.0); Mean Corpuscular HGB Conc 33.1 g/dL (31.5-36.5); Mean Corpuscular Volume 90 fL (80-100); Mean Platelet Volume 9.9 fL (9.1-12.4); Platelet Count 217 K/mm3 (150-400); RDW Coefficient Variation 14.8 % (11.7-14.2); RDW Standard Deviation 48.6 fL (35.1-46.3); Red Blood Cell Count 4.43 M/mm3 (4.30-5.90); White Blood Cell Count 8.25 K/mm3 (4.00-11.30)
[2021-02-21 04:36] LABS: International Normalized Ratio 2.71; Prothrombin Time Results 27.7 Sec (9.7-11.5)
[2021-02-21 04:55] LABS: Albumin, Blood 3.3 g/dL (3.4-5.0); Albumin/Globulin Ratio 1.1 (0.8-1.8); Bilirubin, Total 0.8 mg/dL (0.1-1.0); Bun/Creatinine Ratio 19.1 (12.0-20.0); Creatinine, Blood 1.83 mg/dL (0.60-1.20); Globulin, Blood 3.1 g/dL (2.2-4.0); Magnesium, Blood 1.7 mg/dL (1.6-2.4); Phosphorus, Blood 4.4 mg/dL (2.5-4.9); Potassium, Blood 4.3 mmol/L (3.5-5.5); Thyroid Stimulating Hormone 3.59 uIU/mL (0.360-4.800); Total Protein, Blood 6.4 g/dL (6.4-8.2)
--- NOTE | 2021-02-21 05:02 | NUR ---
SHIFT SUMMARY PT AXO. IN AFIB. AT BEGINNING OF SHIFT, CARDIZEM GTT %5MG/HR. HR 110'S. WITH PM MEDS, HR DECREASED TO 90'S WITH SIFTER SBP'S IN THE 90'S. CARDIZEM GTT TURNED OFF. HR REMAINS 90'S TO 100'S AFIB. BP STABLE 90'S - 100'S SBP. REMAINS ON RA OR HOME CPAP. HAS HAD 2 BOUTS OF DIARRHEA, IMMODIUM ADMINISTERED. USING URINAL. OTHERWISE, PT RESTING T/O NIGHT. WILL CONTINUE TO MONITOR UNTIL SHFIT CHANGE.
[2021-02-21] MEDS ORDERED: CEPH500 PO (09:13)
[2021-02-21] MEDS ORDERED: CRANBERRY CONC1 EAC1 PO (09:14)
[2021-02-21] MEDS ORDERED: IMODIUM A-D2 M1 PO (09:17)
[2021-02-21] MEDS ORDERED: DILT60ER PO (09:17)
--- NOTE | 2021-02-21 13:42 | NUR ---
DISCHARGE: PT ALERT AND ORIENTED X4. ON ROOM AIR SATING ABOVE 94%. TELE SHOWING AFIB WITH HR IN THE 80-90'S. DENIES CHEST PAIN. IV ANTIBIOTICS INFUSED. COMPLAINS OF PAIN IN RIGHT LOWER LEG, MEDICATED WITH TYLENOL WITH GOOD RELIEF. LEG ELEVATED IN BED. REDNESS NOTED IN RIGHT LOWER LEG, UNCHANGED FROM YESTERDAY. NEURO WNL. ACHS BLOOD SUGARS. PT ABLE TO MOVE INDEPENDENTLY. VITAL SIGNS STABLE, NO ACUTE CHANGES. DISCHARGE INSTRUCTIONS REVIEWED AND QUESTIONS ANSWERED. TAKEN TO CAR VIA WHEELCHAIR, SON IN TO PRINT BINDING AND FINISHING WORKER PT.
== END 2021-02-21 13:16 | disposition home health service (06) ==
LOC: ER 20:21 → PCU 02-20 03:39
PROVIDERS: Emergency Medicine; Family Medicine; Physician Assistant; ADMIT Internal Medicine
DX: I48.20 Chronic atrial fibrillation, unspecified (principal); I82.4Z1 Acute embolism and thrombosis of unspecified deep veins of right distal lower extremity; L03.115 Cellulitis of right lower limb; I87.8 Other specified disorders of veins; I11.0 Hypertensive heart disease with heart failure; I50.33 Acute on chronic diastolic (congestive) heart failure; E78.5 Hyperlipidemia, unspecified; I25.10 Atherosclerotic heart disease of native coronary artery without angina pectoris; E11.9 Type 2 diabetes mellitus without complications; G47.33 Obstructive sleep apnea (adult) (pediatric); M10.9 Gout, unspecified; E66.01 Morbid (severe) obesity due to excess calories; Z79.01 Long term (current) use of anticoagulants; Z95.5 Presence of coronary angioplasty implant and graft; Z79.84 Long term (current) use of oral hypoglycemic drugs; Z88.5 Allergy status to narcotic agent; Z68.42 Body mass index [BMI] 45.0-49.9, adult; Z87.891 Personal history of nicotine dependence
CPT/HCPCS: 36415; 71045; 71260; 80053; 82947; 83605; 83735; 83880; 84100; 84145; 84443; 84484; 84550; 85025; 85027; 85610; 85651; 86140; 93005; 93010; 94762; 96372; 96374; 96375; 99285-25; A9270; A9270-GY; J0690; J1650; J1940; J2270; J2405; Q9967

== ENCOUNTER 2021-09-11 15:00 | Emergency (ER) | payer OTHER ==
[~2021-09-11] VITALS: Ht 182.9 cm; Wt 167.8 kg
[~2021-09-11 15:00] MED LIST changes: +CEPH500 PO; +CRANBERRY CONC1 EAC1 PO; +DILT60ER PO; +IMODIUM A-D2 M1 PO; +ISOSORBIDE MONO30 MG PO; -Isosorbide Mono60 MG PO; +Lisinopril2.5 MG PO; +METO2.5 PO; -Prinivil10 MG PO
[2021-09-11 15:54] LABS: BASOPHILS ABSOLUTE AUTO 0.03 K/mm3 (0.00-0.23); BASOPHILS PERCENT AUTO 0 % (0-2); EOSINOPHILS ABSOLUTE AUTO 0.32 K/mm3 (0.00-0.68); EOSINOPHILS PERCENT AUTO 4 % (0-6); Hematocrit 42.6 % (37.0-53.0); Hemoglobin 13.7 g/dL (13.5-17.5); IMMATURE GRAN ABSOLUTE AUTO 0.04 K/mm3 (0.00-0.10); IMMATURE GRAN PERCENT AUTO 1 % (0-1); LYMPHOCYTES ABSOLUTE AUTO 0.89 K/mm3 (0.84-5.20); LYMPHOCYTES PERCENT AUTO 12 % (21-46); MONOCYTES ABSOLUTE AUTO 0.59 K/mm3 (0.16-1.47); MONOCYTES PERCENT AUTO 8 % (4-13); Mean Corpuscular HGB 30.1 pg (26.0-34.0); Mean Corpuscular HGB Conc 32.2 g/dL (31.5-36.5); Mean Corpuscular Volume 94 fL (80-100); Mean Platelet Volume 9.3 fL (9.1-12.4); NEUTROPHILS ABSOLUTE AUTO 5.42 K/mm3 (1.96-9.15); NEUTROPHILS PERCENT AUTO 74 % (41-73); Platelet Count 162 K/mm3 (150-400); RDW Coefficient Variation 16.6 % (11.7-14.2); RDW Standard Deviation 56.2 fL (35.1-46.3); Red Blood Cell Count 4.55 M/mm3 (4.30-5.90); White Blood Cell Count 7.29 K/mm3 (4.00-11.30)
[2021-09-11 16:25] LABS: Alanine Aminotransfer (ALT/SGP 27 U/L (12-78); Albumin, Blood 3.3 g/dL (3.4-5.0); Albumin/Globulin Ratio 0.8 (0.8-1.8); Alk Phos 116 U/L (50-136); Anion Gap 4 mmol/L (6-16); Aspartate Aminotrans (AST/SGOT 27 U/L (12-37); Bilirubin, Total 1.2 mg/dL (0.1-1.0); Blood Urea Nitrogen 21 mg/dL (8-24); Bun/Creatinine Ratio 18.3 (12.0-20.0); CO2, Blood 26 mmol/L (21-32); Calcium, Blood 8.4 mg/dL (8.5-10.1); Chloride, Blood 108 mmol/L (98-108); Creatinine, Blood 1.15 mg/dL (0.60-1.20); Globulin, Blood 4.1 g/dL (2.2-4.0); Glomerular Filtration Rate >60 (60-); Glucose, Blood 151 mg/dL (70-99); Potassium, Blood 4.3 mmol/L (3.5-5.5); Sodium, Blood 138 mmol/L (136-145); Total Protein, Blood 7.4 g/dL (6.4-8.2); Troponin I <0.015 ng/mL (0.000-0.040)
[2021-09-11 21:01] LABS: Influenza A, PCR NEGATIVE (NEGATIVE); Influenza B, PCR NEGATIVE (NEGATIVE); Resp Syncytial Virus, PCR NEGATIVE (NEGATIVE); SARS-Cov-2 (COVID-19) PCR, MMC NEGATIVE (NEGATIVE)
[2021-09-11] MEDS ORDERED: Prinivil5 MG PO (21:45)
[2021-09-11] MEDS ORDERED: Tessalon Perle100 MG PO (21:46)
== END 2021-09-11 21:54 | disposition home or self-care (01) ==
LOC: ER 15:00
PROVIDERS: Physician Assistant; Student in an Organized Health Care Education/Training Program
DX: I11.0 Hypertensive heart disease with heart failure (principal); I50.32 Chronic diastolic (congestive) heart failure; J40 Bronchitis, not specified as acute or chronic; Z79.899 Other long term (current) drug therapy; Z79.84 Long term (current) use of oral hypoglycemic drugs; Z79.01 Long term (current) use of anticoagulants; I48.91 Unspecified atrial fibrillation; E11.9 Type 2 diabetes mellitus without complications; E78.5 Hyperlipidemia, unspecified; M10.9 Gout, unspecified; I25.10 Atherosclerotic heart disease of native coronary artery without angina pectoris; G47.33 Obstructive sleep apnea (adult) (pediatric); Z87.891 Personal history of nicotine dependence
CPT/HCPCS: 0241U; 36415; 71046; 71260; 80053; 82947; 83690; 83880; 84484; 85025; 93005; 93010; 93971; 96372; 96374; 99285-25; A9270; J1940; J2060; J3010; Q9967

== ENCOUNTER 2021-10-07 16:00 | Inpatient (IN) | payer OTHER ==
[~2021-10-07] VITALS: Ht 182.9 cm; Wt 140.6 kg
[~2021-10-07 16:00] MED LIST changes: +Prinivil5 MG PO; +Tessalon Perle100 MG PO
[2021-10-07 16:34] LABS: BASOPHILS ABSOLUTE AUTO 0.05 K/mm3 (0.00-0.23); BASOPHILS PERCENT AUTO 0 % (0-2); EOSINOPHILS ABSOLUTE AUTO 0.14 K/mm3 (0.00-0.68); EOSINOPHILS PERCENT AUTO 1 % (0-6); Hematocrit 47.9 % (37.0-53.0); Hemoglobin 15.3 g/dL (13.5-17.5); IMMATURE GRAN ABSOLUTE AUTO 0.06 K/mm3 (0.00-0.10); IMMATURE GRAN PERCENT AUTO 1 % (0-1); LYMPHOCYTES ABSOLUTE AUTO 0.95 K/mm3 (0.84-5.20); LYMPHOCYTES PERCENT AUTO 7 % (21-46); MONOCYTES ABSOLUTE AUTO 1.14 K/mm3 (0.16-1.47); MONOCYTES PERCENT AUTO 9 % (4-13); Mean Corpuscular HGB 30.1 pg (26.0-34.0); Mean Corpuscular HGB Conc 31.9 g/dL (31.5-36.5); Mean Corpuscular Volume 94 fL (80-100); Mean Platelet Volume 9.1 fL (9.1-12.4); NEUTROPHILS ABSOLUTE AUTO 10.67 K/mm3 (1.96-9.15); NEUTROPHILS PERCENT AUTO 82 % (41-73); Platelet Count 234 K/mm3 (150-400); RDW Coefficient Variation 17.1 % (11.7-14.2); RDW Standard Deviation 59.2 fL (35.1-46.3); Red Blood Cell Count 5.08 M/mm3 (4.30-5.90); White Blood Cell Count 13.01 K/mm3 (4.00-11.30)
[2021-10-07 16:48] LABS: Alanine Aminotransfer (ALT/SGP 27 U/L (12-78); Albumin, Blood 4.2 g/dL (3.4-5.0); Albumin/Globulin Ratio 1.1 (0.8-1.8); Alk Phos 134 U/L (50-136); Anion Gap 7 mmol/L (6-16); Aspartate Aminotrans (AST/SGOT 24 U/L (12-37); Bilirubin, Total 1.7 mg/dL (0.1-1.0); Blood Urea Nitrogen 20 mg/dL (8-24); Bun/Creatinine Ratio 18.2 (12.0-20.0); CO2, Blood 26 mmol/L (21-32); Chloride, Blood 106 mmol/L (98-108); Globulin, Blood 3.8 g/dL (2.2-4.0); Glomerular Filtration Rate >60 (60-); Glucose, Blood 134 mg/dL (70-99); Potassium, Blood 4.8 mmol/L (3.5-5.5); Sodium, Blood 139 mmol/L (136-145); Troponin I <0.015 ng/mL (0.000-0.040)
[2021-10-08 04:36] LABS: BASOPHILS ABSOLUTE AUTO 0.02 K/mm3 (0.00-0.23); BASOPHILS PERCENT AUTO 0 % (0-2); EOSINOPHILS ABSOLUTE AUTO 0.06 K/mm3 (0.00-0.68); EOSINOPHILS PERCENT AUTO 1 % (0-6); Hematocrit 38.4 % (37.0-53.0); Hemoglobin 12.3 g/dL (13.5-17.5); IMMATURE GRAN ABSOLUTE AUTO 0.03 K/mm3 (0.00-0.10); IMMATURE GRAN PERCENT AUTO 0 % (0-1); LYMPHOCYTES ABSOLUTE AUTO 0.87 K/mm3 (0.84-5.20); LYMPHOCYTES PERCENT AUTO 12 % (21-46); MONOCYTES ABSOLUTE AUTO 0.72 K/mm3 (0.16-1.47); MONOCYTES PERCENT AUTO 10 % (4-13); Mean Corpuscular HGB 29.7 pg (26.0-34.0); Mean Corpuscular Volume 93 fL (80-100); Mean Platelet Volume 9.5 fL (9.1-12.4); NEUTROPHILS ABSOLUTE AUTO 5.61 K/mm3 (1.96-9.15); NEUTROPHILS PERCENT AUTO 77 % (41-73); Platelet Count 166 K/mm3 (150-400); RDW Coefficient Variation 17.2 % (11.7-14.2); RDW Standard Deviation 57.8 fL (35.1-46.3); Red Blood Cell Count 4.14 M/mm3 (4.30-5.90); White Blood Cell Count 7.31 K/mm3 (4.00-11.30)
[2021-10-08 05:10] LABS: Alanine Aminotransfer (ALT/SGP 21 U/L (12-78); Albumin, Blood 3.1 g/dL (3.4-5.0); Alk Phos 98 U/L (50-136); Anion Gap 8 mmol/L (6-16); Aspartate Aminotrans (AST/SGOT 13 U/L (12-37); Bilirubin, Total 1.9 mg/dL (0.1-1.0); Blood Urea Nitrogen 23 mg/dL (8-24); Bun/Creatinine Ratio 19.7 (12.0-20.0); CO2, Blood 29 mmol/L (21-32); Calcium, Blood 8.4 mg/dL (8.5-10.1); Chloride, Blood 104 mmol/L (98-108); Creatinine, Blood 1.17 mg/dL (0.60-1.20); Glomerular Filtration Rate >60 (60-); Glucose, Blood 83 mg/dL (70-99); Potassium, Blood 3.7 mmol/L (3.5-5.5); Sodium, Blood 141 mmol/L (136-145); Total Protein, Blood 6.1 g/dL (6.4-8.2); Troponin I 0.023 ng/mL (0.000-0.040)
--- NOTE | 2021-10-08 06:29 | NUR ---
PT ARRIVAL TO UNIT AT APPROX 2044. +SOB. 78% ON RA UON ARRIVAL. PLACED ON SPAP MACHINE AT 2L. CONT PULSE OX PLACED ON PT. RECEIVING IV LASIX. BSC PLACED NEXT TO BED FOR CONVIENANCE. TELE: NSR. DENIES CHEST PAIN. BLE MILD EDEMA, R>L. DENIES PAIN. NO ISSUES THROUGHOUT SHIFT. WILL CONTINUE TO MONITOR
[2021-10-09 05:07] LABS: BASOPHILS ABSOLUTE AUTO 0.03 K/mm3 (0.00-0.23); BASOPHILS PERCENT AUTO 1 % (0-2); EOSINOPHILS ABSOLUTE AUTO 0.31 K/mm3 (0.00-0.68); EOSINOPHILS PERCENT AUTO 5 % (0-6); Hematocrit 42.2 % (37.0-53.0); Hemoglobin 13.6 g/dL (13.5-17.5); IMMATURE GRAN ABSOLUTE AUTO 0.04 K/mm3 (0.00-0.10); IMMATURE GRAN PERCENT AUTO 1 % (0-1); LYMPHOCYTES ABSOLUTE AUTO 1.37 K/mm3 (0.84-5.20); LYMPHOCYTES PERCENT AUTO 22 % (21-46); MONOCYTES ABSOLUTE AUTO 0.97 K/mm3 (0.16-1.47); MONOCYTES PERCENT AUTO 15 % (4-13); Mean Corpuscular HGB 29.6 pg (26.0-34.0); Mean Corpuscular HGB Conc 32.2 g/dL (31.5-36.5); Mean Corpuscular Volume 92 fL (80-100); Mean Platelet Volume 9.8 fL (9.1-12.4); NEUTROPHILS ABSOLUTE AUTO 3.56 K/mm3 (1.96-9.15); NEUTROPHILS PERCENT AUTO 57 % (41-73); Platelet Count 171 K/mm3 (150-400); RDW Coefficient Variation 16.8 % (11.7-14.2); RDW Standard Deviation 56.2 fL (35.1-46.3); White Blood Cell Count 6.28 K/mm3 (4.00-11.30)
[2021-10-09 06:04] LABS: Albumin, Blood 3.1 g/dL (3.4-5.0); Anion Gap 9 mmol/L (6-16); Blood Urea Nitrogen 27 mg/dL (8-24); Bun/Creatinine Ratio 23.5 (12.0-20.0); CO2, Blood 29 mmol/L (21-32); Calcium, Blood 8.7 mg/dL (8.5-10.1); Chloride, Blood 100 mmol/L (98-108); Creatinine, Blood 1.15 mg/dL (0.60-1.20); Glomerular Filtration Rate >60 (60-); Glucose, Blood 106 mg/dL (70-99); Magnesium, Blood 1.8 mg/dL (1.6-2.4); Phosphorus, Blood 5.2 mg/dL (2.5-4.9); Potassium, Blood 3.8 mmol/L (3.5-5.5); Sodium, Blood 138 mmol/L (136-145); Troponin I <0.015 ng/mL (0.000-0.040)
--- NOTE | 2021-10-09 06:46 | NUR ---
SUMMARY PT REFUSING SOME MEDS TONIGHT.REFUSED HIS PM DOSE LASIX FOR DAY SHIFT.UNABLE TO GIVE METOPROLOL DUE TO DOCUMENTED TIMES ON EMAR PER DAY SHIFT.PT VERB WANTING TO TALK WITH DOCTORS DURING DAY TO DISCUSS HIS HOME MEDS AND HOW MEDS ARE BEING GIVEN HERE,PLUS NEW MEDS.I ADVISED DR VANG OF ABOVE WELL VSS TONIGHT.NOT REQUIRING ANY PRN LOPRESSOR TONIGHT.I REVIEWED PT LIST FROM MED RECONCILE AND MED ORDERS CURRENTLY BEING GIVEN.I CREATED LISTS AND WILL GIVE TO DAY RN FOR TO COMPARE AND REVIEW WITH PT.
--- NOTE | 2021-10-09 13:20 | NUR ---
AFIB WITH ELEVATED HR PT'S HR INCREASED TO 120-130 WITH ACTIVITY, HR DECREASED TO 110-[address] ABURTO NOTIFIED AND PT WAS GIVEN AMIODARONE AND ADDITIONAL 50MG OF METOPROLOL TO EQUAL FULL HOME DOSE OF 200MG METOPROLOL DAILY. WILL CONTINUE TO MONITOR.
[2021-10-09] MEDS ORDERED: Amiodarone HCl200 MG PO (14:48)
[2021-10-09] MEDS ORDERED: GLIP5 PO (14:49)
--- NOTE | 2021-10-09 17:50 | NUR ---
ELEVATED HR PT GOT UP TO THE BATHROOM AND HR ELEVATED 120-130. HR BEGAN DECREASING AFTER PT WAS AT REST. PT DENIED CHEST PAIN. HE IS SOB WITH ACTIVITY. WILL CONTINUE TO MONITOR.
--- NOTE | 2021-10-09 20:07 | NUR ---
PT'S HOME MEDICATION LIST REQUIRED UPDATING MANY OF HE HOME MEDICATIONS HAD NOT BEEN ORDERED. DR. NOVA RESTARTED HOME MEDICATIONS AND SAID OK FOR PT TO USE MEDS FROM HOME INSTEAD OF HOSPITAL MEDICATIONS IF SHE PREFERS.
--- NOTE | 2021-10-09 20:21 | NUR ---
SHIFT SUMMARY PT IS GETTING IV LASIX, TOLERATING WELL, GOOD OUTPUT. PT INDEPENDENT IN ROOM, SOME SHORTNESS OF BREATH WITH ACTIVITY. PT'S HR HAS BEEN ELEVATED WITH ACTIVITY TODAY, HR IS BETTER MANAGED SINCE HOME MEDICATION DOSES HAVE BEEN CORRECTED. PT TOLERATING PO. REPORT GIVEN TO ELISHA CROW.
[2021-10-10 04:02] LABS: Hematocrit 42.1 % (37.0-53.0); Hemoglobin 13.9 g/dL (13.5-17.5)
[2021-10-10 04:51] LABS: Albumin, Blood 3.2 g/dL (3.4-5.0); Anion Gap 10 mmol/L (6-16); Blood Urea Nitrogen 36 mg/dL (8-24); Bun/Creatinine Ratio 27.7 (12.0-20.0); CO2, Blood 29 mmol/L (21-32); Calcium, Blood 9.2 mg/dL (8.5-10.1); Chloride, Blood 99 mmol/L (98-108); Glomerular Filtration Rate 56 (60-); Glucose, Blood 134 mg/dL (70-99); Phosphorus, Blood 5.4 mg/dL (2.5-4.9); Potassium, Blood 3.5 mmol/L (3.5-5.5); Sodium, Blood 138 mmol/L (136-145)
--- NOTE | 2021-10-10 07:04 | NUR ---
ALERT AND ORIENTED. TELE AFIB 80-90'S. SLEPT WELL THROUGH NIGHT, SAFETY MAINTAINED.
--- NOTE | 2021-10-10 18:19 | NUR ---
SHIFT SUMMARY PATIENT STILL BEING DIURESED, DOSE OF IV LASIK INCREASED TO 60MG BID. PATIENT WITH GOOD U/O. OVER 3000CC FOR SHIFT. O2 REMAINS AT 3L, PATIENT AMBULATED IN HERNANDEZ AND TOLERATED WELL. TELE MONITORING CONTINUED, AFIB CONTROLLED RATE IN 90S. PATIENT DENIES ANY CP, NO PALPITATIONS. ALL NEEDS MET, WILL CONTINUE WITH PLAN OF CARE
[2021-10-11 05:00] LABS: BASOPHILS ABSOLUTE AUTO 0.05 K/mm3 (0.00-0.23); BASOPHILS PERCENT AUTO 1 % (0-2); EOSINOPHILS ABSOLUTE AUTO 0.56 K/mm3 (0.00-0.68); EOSINOPHILS PERCENT AUTO 8 % (0-6); Hematocrit 42.4 % (37.0-53.0); Hemoglobin 14.1 g/dL (13.5-17.5); IMMATURE GRAN ABSOLUTE AUTO 0.04 K/mm3 (0.00-0.10); IMMATURE GRAN PERCENT AUTO 1 % (0-1); LYMPHOCYTES ABSOLUTE AUTO 1.61 K/mm3 (0.84-5.20); LYMPHOCYTES PERCENT AUTO 22 % (21-46); MONOCYTES ABSOLUTE AUTO 0.93 K/mm3 (0.16-1.47); MONOCYTES PERCENT AUTO 12 % (4-13); Mean Corpuscular HGB 29.6 pg (26.0-34.0); Mean Corpuscular HGB Conc 33.3 g/dL (31.5-36.5); Mean Corpuscular Volume 89 fL (80-100); Mean Platelet Volume 9.3 fL (9.1-12.4); NEUTROPHILS PERCENT AUTO 57 % (41-73); Platelet Count 211 K/mm3 (150-400); RDW Coefficient Variation 16.5 % (11.7-14.2); RDW Standard Deviation 53.7 fL (35.1-46.3); Red Blood Cell Count 4.77 M/mm3 (4.30-5.90); White Blood Cell Count 7.49 K/mm3 (4.00-11.30)
--- NOTE | 2021-10-11 05:25 | NUR ---
SHIFT SUMMARY A/OX4. AMBULATING INDEPENDENTLY WITH FWW IN RM. NO CHEST PAIN REPORTED. PT REPORTS FEELING LESS SHORT OF BREATHE WITH ACTIVITY THAN WHEN ADMITTED. VOIDING WELL. VSS. TELE IN PLACE, TELE MONITOR REPORTED AFIB AT 107. TOLERATING PO INTAKE. WILL REPORT TO ONCOMING RN.
[2021-10-11 06:04] LABS: Albumin, Blood 3.3 g/dL (3.4-5.0); Anion Gap 12 mmol/L (6-16); Blood Urea Nitrogen 41 mg/dL (8-24); Bun/Creatinine Ratio 29.7 (12.0-20.0); CO2, Blood 30 mmol/L (21-32); Calcium, Blood 9.2 mg/dL (8.5-10.1); Chloride, Blood 95 mmol/L (98-108); Creatinine, Blood 1.38 mg/dL (0.60-1.20); Glomerular Filtration Rate 52 (60-); Glucose, Blood 135 mg/dL (70-99); Magnesium, Blood 1.6 mg/dL (1.6-2.4); Phosphorus, Blood 5.6 mg/dL (2.5-4.9); Potassium, Blood 3.2 mmol/L (3.5-5.5); Sodium, Blood 137 mmol/L (136-145)
--- NOTE | 2021-10-11 18:10 | NUR ---
SHIFT SUMMARY PATIENT BEING DIURESED WITH 60MG IV LASIX; GOOD U/O. 3L NC AT REST; TELE MONITORING CONTINUED, AFIB CONTROLLED RATE. NO ACUTE EVENTS ON SHIFT, WILL CONTINUE WITH PLAN OF CARE
--- NOTE | 2021-10-12 03:57 | NUR ---
SHIFT SUMMARY A/OX4, IND IN RM. SOB WITH ACTIVITY- 3L NASAL CANULA, MAINTAINING OXYGEN SATURATION >95%. PT REPORTS DECREASE IN EDEMA. NO CHEST PAIN REPORTED. NO PAIN REPORTED. VOIDING WELL. WILL REPORT TO ONCOMING RN.
[2021-10-12 09:12] LABS: Calcium, Blood 9.5 mg/dL (8.5-10.1); Creatinine, Blood 1.41 mg/dL (0.60-1.20); Potassium, Blood 3.7 mmol/L (3.5-5.5)
--- NOTE | 2021-10-13 05:14 | NUR ---
SHIFT SUMMARY NO ACUTE CHANGES OVERNIGHT. VSS. PT ON 2L NC. SATURATING OVER 95%. REPORTS MILD SOB ESPECIALLY WITH ACTIVITY. PT VOIDING WITHOUT DIFFICULTY. USED BSC AT NIGHT. INDEPENDENT IN ROOM. PT ON TELE, REMAIN AFIB OVERNIGHT. PT DENIES CHEST PAIN. EDEMA STILL PRESENT ON BILATERAL LOWER EXTREMITY. AOX4. WEARS CPAP AT NIGHT R/T HX STEPH. CALL LIGHT WITHIN REACH. WILL PROVIDE REPORT TO ONCOMING NURSE.
[2021-10-13 07:11] LABS: Bun/Creatinine Ratio 37.3 (12.0-20.0); Calcium, Blood 9.1 mg/dL (8.5-10.1); Creatinine, Blood 1.34 mg/dL (0.60-1.20); Magnesium, Blood 1.7 mg/dL (1.6-2.4); Potassium, Blood 3.3 mmol/L (3.5-5.5)
[2021-10-13] MEDS ORDERED: XARELTO20 MG PO (11:41)
[2021-10-13] MEDS ORDERED: POTA10T PO (11:41)
--- NOTE | 2021-10-13 13:24 | NUR ---
DISCHARGE SUMMARY PATIENT ALERT AND ORIENTED. TOLERATING ADA DIET. DRINING FLUIDS. VOIDING WELL. INDEPENDENT IN ROOM. USES CPAP AT NIGHT. OXYGEN SATURATION ABOVE 90% ON ROOM AIR. PRODUCTIVE COUGH. LUNGS COARSE THROUGHOUT. DENIES SHORTNESS OF BREATH. DISCHARGE EDUCATION GIVEN ON NEW MEDICATIONS AND FOLLOW UP APPOINTMENTS. INSTRUCTED ABOUT DAILY WEIGHTS AND TAKING EXTRA DOSE OF LASIX ORDERED IF WEIGHT INCREASES BY 1 LB. IV DC'D WNL. PATIENT LEFT UNIT VIA WHEELCHAIR FOR HOME AT 1315.
== END 2021-10-13 13:15 | disposition home or self-care (01) | DRG 291 ==
LOC: ER 16:00 → MEDS 18:54 → SURS 18:54
PROVIDERS: Internal Medicine; Physician Assistant; ADMIT Internal Medicine
DX: I11.0 Hypertensive heart disease with heart failure (principal); I50.33 Acute on chronic diastolic (congestive) heart failure; J96.01 Acute respiratory failure with hypoxia; I48.20 Chronic atrial fibrillation, unspecified; Z68.41 Body mass index [BMI] 40.0-44.9, adult; E78.5 Hyperlipidemia, unspecified; M10.9 Gout, unspecified; Z20.822 Contact with and (suspected) exposure to COVID-19; J20.9 Acute bronchitis, unspecified; G47.33 Obstructive sleep apnea (adult) (pediatric); E11.9 Type 2 diabetes mellitus without complications; Z96.649 Presence of unspecified artificial hip joint; I16.0 Hypertensive urgency; E66.01 Morbid (severe) obesity due to excess calories; F32.A Depression, unspecified; E87.6 Hypokalemia; T50.1X5A Adverse effect of loop [high-ceiling] diuretics, initial encounter; I87.8 Other specified disorders of veins; I25.10 Atherosclerotic heart disease of native coronary artery without angina pectoris; Z86.718 Personal history of other venous thrombosis and embolism; Z95.5 Presence of coronary angioplasty implant and graft; Z90.49 Acquired absence of other specified parts of digestive tract; Z87.891 Personal history of nicotine dependence; Z79.01 Long term (current) use of anticoagulants; Z79.84 Long term (current) use of oral hypoglycemic drugs; Z79.899 Other long term (current) drug therapy
CPT/HCPCS: 36415; 71046; 80048; 80053; 80069; 82947; 83735; 83880; 84484; 85014; 85018; 85025; 85379; 93005; 93010; 94640; 94660; 94762; 96365; 96375; 99285-25; A9270; C8929; J0456; J1940; J7050; Q9957

== ENCOUNTER 2021-10-31 18:29 | Observation (INO) | payer OTHER ==
[~2021-10-31] VITALS: Ht 170.2 cm; Wt 159.3 kg
[~2021-10-31 18:29] MED LIST changes: +GLIP5 PO; +POTA10T PO; +XARELTO20 MG PO
[2021-10-31 19:00] LABS: BASOPHILS ABSOLUTE AUTO 0.03 K/mm3 (0.00-0.23); BASOPHILS PERCENT AUTO 1 % (0-2); EOSINOPHILS PERCENT AUTO 4 % (0-6); Hematocrit 45.9 % (37.0-53.0); Hemoglobin 15.5 g/dL (13.5-17.5); IMMATURE GRAN ABSOLUTE AUTO 0.03 K/mm3 (0.00-0.10); IMMATURE GRAN PERCENT AUTO 1 % (0-1); LYMPHOCYTES ABSOLUTE AUTO 0.91 K/mm3 (0.84-5.20); LYMPHOCYTES PERCENT AUTO 17 % (21-46); MONOCYTES ABSOLUTE AUTO 0.61 K/mm3 (0.16-1.47); MONOCYTES PERCENT AUTO 12 % (4-13); Mean Corpuscular HGB 30.3 pg (26.0-34.0); Mean Corpuscular HGB Conc 33.8 g/dL (31.5-36.5); Mean Corpuscular Volume 90 fL (80-100); Mean Platelet Volume 9.6 fL (9.1-12.4); NEUTROPHILS ABSOLUTE AUTO 3.46 K/mm3 (1.96-9.15); NEUTROPHILS PERCENT AUTO 66 % (41-73); Platelet Count 177 K/mm3 (150-400); RDW Coefficient Variation 15.9 % (11.7-14.2); RDW Standard Deviation 53.1 fL (35.1-46.3); Red Blood Cell Count 5.11 M/mm3 (4.30-5.90); White Blood Cell Count 5.24 K/mm3 (4.00-11.30)
[2021-10-31 19:26] LABS: Alanine Aminotransfer (ALT/SGP 34 U/L (12-78); Albumin, Blood 3.9 g/dL (3.4-5.0); Albumin/Globulin Ratio 1.1 (0.8-1.8); Alk Phos 130 U/L (50-136); Anion Gap 7 mmol/L (6-16); Aspartate Aminotrans (AST/SGOT 29 U/L (12-37); Bilirubin, Total 0.8 mg/dL (0.1-1.0); Blood Urea Nitrogen 22 mg/dL (8-24); Bun/Creatinine Ratio 21.6 (12.0-20.0); CO2, Blood 25 mmol/L (21-32); Calcium, Blood 8.4 mg/dL (8.5-10.1); Chloride, Blood 104 mmol/L (98-108); Creatinine, Blood 1.02 mg/dL (0.60-1.20); Globulin, Blood 3.5 g/dL (2.2-4.0); Glomerular Filtration Rate >60 (60-); Glucose, Blood 202 mg/dL (70-99); Potassium, Blood 3.8 mmol/L (3.5-5.5); Sodium, Blood 136 mmol/L (136-145); Total Protein, Blood 7.4 g/dL (6.4-8.2); Troponin I <0.015 ng/mL (0.000-0.040)
[2021-10-31 20:15] LABS: Base Excess Venous 3.8 mmol/L; Bicarbonate Venous 27.1 mmol/L (24.0-30.0); PCO2 Venous 44.5 mmHg (38-42); PO2 Venous 79.6 mmHg (38-42); pH Blood Venous 7.41 (7.34-7.37)
[2021-10-31 20:30] LABS: Influenza A, PCR NEGATIVE (NEGATIVE); Influenza B, PCR NEGATIVE (NEGATIVE); Resp Syncytial Virus, PCR NEGATIVE (NEGATIVE)
[2021-10-31 20:45] LABS: SARS-Cov-2 (COVID-19) PCR, MMC POSITIVE (NEGATIVE)
[2021-10-31 21:20] LABS: Source, Urine Voided
[2021-10-31 21:25] LABS: Bilirubin, Urine Neg (Neg); Blood, Urine 1+ (Neg); Glucose Qualitative, Urine Neg (Neg); Ketones, Urine Neg (Neg); Leukocyte Esterase, Urine Neg (Neg); Nitrite, Urine Neg (Neg); Protein, Urine 2+ (Neg); Urobilinogen, Urine NORM (Normal)
[2021-10-31 21:30] LABS: Appearance, Urine Clear (Clear); Color, Urine Yellow (P-Yellow)
[2021-10-31 21:37] LABS: Bacteria Not Seen /hpf; Squamous Epithelial Cells Not Seen /hpf (Few); White Blood Cells, Urine 0-2 /hpf (0-5)
[2021-11-01 03:57] LABS: BASOPHILS ABSOLUTE AUTO 0.03 K/mm3 (0.00-0.23); BASOPHILS PERCENT AUTO 1 % (0-2); EOSINOPHILS ABSOLUTE AUTO 0.27 K/mm3 (0.00-0.68); EOSINOPHILS PERCENT AUTO 5 % (0-6); Hematocrit 46.4 % (37.0-53.0); Hemoglobin 15.5 g/dL (13.5-17.5); IMMATURE GRAN ABSOLUTE AUTO 0.03 K/mm3 (0.00-0.10); IMMATURE GRAN PERCENT AUTO 1 % (0-1); LYMPHOCYTES ABSOLUTE AUTO 1.37 K/mm3 (0.84-5.20); LYMPHOCYTES PERCENT AUTO 24 % (21-46); MONOCYTES PERCENT AUTO 14 % (4-13); Mean Corpuscular HGB 30.2 pg (26.0-34.0); Mean Corpuscular HGB Conc 33.4 g/dL (31.5-36.5); Mean Corpuscular Volume 90 fL (80-100); NEUTROPHILS ABSOLUTE AUTO 3.14 K/mm3 (1.96-9.15); NEUTROPHILS PERCENT AUTO 56 % (41-73); Platelet Count 175 K/mm3 (150-400); Red Blood Cell Count 5.13 M/mm3 (4.30-5.90); White Blood Cell Count 5.64 K/mm3 (4.00-11.30)
[2021-11-01 04:23] LABS: CPK Creatine Kinase 81 U/L (39-308); Troponin I <0.015 ng/mL (0.000-0.040)
[2021-11-01 04:28] LABS: Alanine Aminotransfer (ALT/SGP 31 U/L (12-78); Albumin, Blood 3.4 g/dL (3.4-5.0); Albumin/Globulin Ratio 0.9 (0.8-1.8); Alk Phos 121 U/L (50-136); Anion Gap 10 mmol/L (6-16); Aspartate Aminotrans (AST/SGOT 25 U/L (12-37); Bilirubin, Total 0.7 mg/dL (0.1-1.0); Blood Urea Nitrogen 25 mg/dL (8-24); Bun/Creatinine Ratio 22.3 (12.0-20.0); CO2, Blood 25 mmol/L (21-32); Calcium, Blood 8.6 mg/dL (8.5-10.1); Chloride, Blood 104 mmol/L (98-108); Creatinine, Blood 1.12 mg/dL (0.60-1.20); Globulin, Blood 3.9 g/dL (2.2-4.0); Glomerular Filtration Rate >60 (60-); Glucose, Blood 211 mg/dL (70-99); Potassium, Blood 3.6 mmol/L (3.5-5.5); Sodium, Blood 139 mmol/L (136-145); Total Protein, Blood 7.3 g/dL (6.4-8.2)
--- NOTE | 2021-11-01 04:54 | NUR ---
ASSUMED CARE OF PATIENT AT 0226 FROM ER. PATIENT AMBULATES INDEPENDENTLY. C/O R SHOULDER PAIN THAT IS CHRONIC FOR PT. MAINTAINS AROUND 93% ON RA. LS DIM T/O WITH A NONPRODUCTIVE COUGH. AFIB ON TELE AVG 112. FAINT PEDAL/RADIAL PULSES BL. 2+ PITTING EDEMA BLE WITH DRY SKIN AND A RED/PURPLE HUE. PATIENT STATES "I'M A REGULAR HERE" AND REQUESTS VIVIEN FROM RT FOR CPAP. PATIENT SAYS HE WAS DC FROM HERE WITH [facility] PRESCRIPTION, BUT NOT REFILLS. PATIENT DIDN'T MAKE AN APPOINTMENT WITH PRIMARY TO OBTAIN REFILLS AND THUS DIDN'T TAKE THE MEDS FOR 4 DAYS. PATIENT STATES HE HAS AN APPT ON MONDAY NOW WITH PCP. WILL UPDATE CHANGES OCCUR.
[2021-11-01 12:26] LABS: CPK Creatine Kinase 117 U/L (39-308); Troponin I <0.015 ng/mL (0.000-0.040)
--- NOTE | 2021-11-01 14:22 | NUR ---
Upon receiving a referral for spiritual care, I visit patient. Pt is lying in bed, alert and wearing a Cpap mask. Pt tells me about some of the high lights of this past yr (2 week trip to [place]) and the challenges (loss of loved ones, family unit complications and his own medical problems throughout the yr). Pt talks about his love and trust for God and how he is strengthened by prayer and scripture reading. I provide therapeutic listening, recitation of scripture and prayer. Patient responds well and states that he is greatly encouraged by the visit and the prayer. I will continue to remain available to patient and family.
--- NOTE | 2021-11-01 17:12 | NUR ---
SHIFT SUMMARY PT A&Ox4; CALM AND COOPERATIVE WITH CARE. PT RESTING IN BED DURING SHIFT, UP IND IN ROOM TO CHAIR AND BSC. PT REPORTS BODY ACHES AND HEADACHE, MEDICATED x2 WITH TYLENOL T/O SHIFT; PT REPORTS CHRONIC RIGHT SHOULDER PAIN, ICE PACK GIVEN WITH POSITIVE RESULTS. PT SOB WITH EXERTION; SPO2 >90% ON RA; CPAP WHILE SLEEPING. PT DENIES NAUSEA, AND DIZZINESS T/O SHIFT. BP LOW THIS AM, TRENDINF UP T/O SHIFT, ELEVATED THIS AFTERNOON, NOTIFIED DR ORTIZ, ORDERS TO GIVE METOPROLOL LATE, BP TRENDING DOWN. AFIB 100'S. OTHER VSS. NO OTHER ACUTE CHANGES NOTED. WILL CONTINUE TO MONITOR UNTIL REPORT GIVEN TO ONCOMING RN.
[2021-11-02 04:26] LABS: BASOPHILS ABSOLUTE AUTO 0.04 K/mm3 (0.00-0.23); BASOPHILS PERCENT AUTO 1 % (0-2); EOSINOPHILS ABSOLUTE AUTO 0.33 K/mm3 (0.00-0.68); EOSINOPHILS PERCENT AUTO 6 % (0-6); Hematocrit 42.8 % (37.0-53.0); Hemoglobin 14.3 g/dL (13.5-17.5); IMMATURE GRAN ABSOLUTE AUTO 0.03 K/mm3 (0.00-0.10); IMMATURE GRAN PERCENT AUTO 1 % (0-1); LYMPHOCYTES ABSOLUTE AUTO 1.71 K/mm3 (0.84-5.20); LYMPHOCYTES PERCENT AUTO 30 % (21-46); MONOCYTES ABSOLUTE AUTO 0.84 K/mm3 (0.16-1.47); MONOCYTES PERCENT AUTO 15 % (4-13); Mean Corpuscular HGB 30.2 pg (26.0-34.0); Mean Corpuscular HGB Conc 33.4 g/dL (31.5-36.5); Mean Corpuscular Volume 91 fL (80-100); Mean Platelet Volume 9.1 fL (9.1-12.4); NEUTROPHILS ABSOLUTE AUTO 2.81 K/mm3 (1.96-9.15); NEUTROPHILS PERCENT AUTO 49 % (41-73); Platelet Count 162 K/mm3 (150-400); RDW Coefficient Variation 16.1 % (11.7-14.2); Red Blood Cell Count 4.73 M/mm3 (4.30-5.90); White Blood Cell Count 5.76 K/mm3 (4.00-11.30)
[2021-11-02 04:48] LABS: Bun/Creatinine Ratio 29.5 (12.0-20.0); Calcium, Blood 8.4 mg/dL (8.5-10.1); Creatinine, Blood 1.22 mg/dL (0.60-1.20)
--- NOTE | 2021-11-02 06:12 | NUR ---
SHIFT [facility] PATIENT FOUND TO BE A PLESANT MAN WHO IS A&OX4 AND UP IND IN RO0M. VSS. ON RA OR CPAP WITH 2L BLEED AT NIGHT. AFIB FOR MOST OF SHIFT THEN CONVERTED TO SINUS COMFORT AROUND 0400 AND HAS REMAINED IN THIS. COMPLAINTS OF SOME GENERALIZED FATIGUE AND BODY ACHES BUT OTHERWISE NO COVID SYMPTOMS. TOLERATING ADA DIET WITHOUT ISSUE. UP TO BATHROOM AND NO ISSUES VOIDING. NORMAL GI FUNCTION BUT SOME LOSE OF APPETITE. NO ACUTE CONCERNS AT THIS TIME. WILL CONTINUE PLAN OF CARE UNTIL REPORT GIVEN TO SHERI CROW.
[2021-11-02] MEDS ORDERED: Q-Tussin100 MG/5 M PO (12:22)
--- NOTE | 2021-11-02 15:39 | NUR ---
DISCHARGE SUMMARY PT A&Ox4; ANXIOUS AT TIMES, COOPERATIVE WITH CARE. PT UP IN CHAIR FOR MAJOIRTY OF SHIFT. PT STATES OVERALL DOES NOT FEEL WELL, BUT DENIES PAIN, CHEST PAIN/PRESSURE, SOB, NAUSEA AND DIZZINESS. PT ON RA T/S HIFT; HOME O2 EVAL 2L WITH ACTIVITY. VSS. NO OTHER ACUTE CHANGES NOTED. PRESCRIPTION CALLED TO [facility]. EDUCATED PT ON DISCHARGE INSTRUCTIONS, FOLLOW UP APPOINTMENT, MEDICATIONS AND COVID ISOLATION AND WHEN TO RETURN TO ED. PT STATES HE UNDERSTAND AND WILL TAKE PRECAUTIONS AND TAKE HIS MEDICATIONS. PT LEFT ROOM VIA WHEELCHAIR AT 3255
== END 2021-11-02 15:35 | disposition home or self-care (01) ==
LOC: ER 18:29 → ERHOLD 18:30 → PCU 11-01 02:11
PROVIDERS: Emergency Medicine; Internal Medicine; ADMIT Internal Medicine
DX: R07.9 Chest pain, unspecified (principal); I16.0 Hypertensive urgency; I48.91 Unspecified atrial fibrillation; U07.1 COVID-19; J12.82 Pneumonia due to coronavirus disease 2019; R09.02 Hypoxemia; G47.33 Obstructive sleep apnea (adult) (pediatric); E66.01 Morbid (severe) obesity due to excess calories; I11.0 Hypertensive heart disease with heart failure; I50.32 Chronic diastolic (congestive) heart failure; E11.9 Type 2 diabetes mellitus without complications; E78.5 Hyperlipidemia, unspecified; M10.9 Gout, unspecified; F32.A Depression, unspecified; I25.10 Atherosclerotic heart disease of native coronary artery without angina pectoris; Z79.84 Long term (current) use of oral hypoglycemic drugs; Z79.01 Long term (current) use of anticoagulants; Z86.718 Personal history of other venous thrombosis and embolism; Z87.891 Personal history of nicotine dependence; Z95.5 Presence of coronary angioplasty implant and graft; Z96.649 Presence of unspecified artificial hip joint; Z68.43 Body mass index [BMI] 50.0-59.9, adult
CPT/HCPCS: 0241U; 36415; 71045; 80048; 80053; 81001; 82550; 82803; 82947; 83880; 84484; 85025; 93005; 93010; 94660; 94761; 94762; 96374; 96375; 96376; 99285-25; A9270; G0378; J1940; J7030

== ENCOUNTER 2022-03-15 13:34 | Observation (INO) | payer OTHER ==
[~2022-03-15] VITALS: Ht 182.9 cm; Wt 149.7 kg
[~2022-03-15 13:34] MED LIST changes: +FURO20 PO; -FURO40 PO; +Q-Tussin100 MG/5 M PO; +SERT50 PO; +TRAZ100 PO
[2022-03-15 14:23] LABS: BASOPHILS ABSOLUTE AUTO 0.04 K/mm3 (0.00-0.23); BASOPHILS PERCENT AUTO 1 % (0-2); EOSINOPHILS ABSOLUTE AUTO 0.25 K/mm3 (0.00-0.68); EOSINOPHILS PERCENT AUTO 3 % (0-6); Hematocrit 42.4 % (37.0-53.0); Hemoglobin 13.8 g/dL (13.5-17.5); IMMATURE GRAN ABSOLUTE AUTO 0.11 K/mm3 (0.00-0.10); IMMATURE GRAN PERCENT AUTO 2 % (0-1); LYMPHOCYTES ABSOLUTE AUTO 0.77 K/mm3 (0.84-5.20); LYMPHOCYTES PERCENT AUTO 10 % (21-46); MONOCYTES ABSOLUTE AUTO 0.53 K/mm3 (0.16-1.47); MONOCYTES PERCENT AUTO 7 % (4-13); Mean Corpuscular HGB 30.7 pg (26.0-34.0); Mean Corpuscular HGB Conc 32.5 g/dL (31.5-36.5); Mean Corpuscular Volume 94 fL (80-100); Mean Platelet Volume 9.4 fL (9.1-12.4); NEUTROPHILS PERCENT AUTO 77 % (41-73); Platelet Count 197 K/mm3 (150-400); RDW Coefficient Variation 16.5 % (11.7-14.2); RDW Standard Deviation 55.3 fL (35.1-46.3); Red Blood Cell Count 4.49 M/mm3 (4.30-5.90)
[2022-03-15 14:43] LABS: Albumin, Blood 3.8 g/dL (3.4-5.0); Albumin/Globulin Ratio 0.9 (0.8-1.8); Bun/Creatinine Ratio 28.4 (12.0-20.0); Calcium, Blood 9.3 mg/dL (8.5-10.1); Creatinine, Blood 1.16 mg/dL (0.60-1.20); Globulin, Blood 4.3 g/dL (2.2-4.0); Potassium, Blood 3.7 mmol/L (3.5-5.5); Total Protein, Blood 8.1 g/dL (6.4-8.2)
[2022-03-15 15:06] LABS: International Normalized Ratio 1.32; Prothrombin Time Results 13.6 Sec (9.7-11.5)
[2022-03-15 15:47] LABS: Influenza A, PCR NEGATIVE (NEGATIVE); Influenza B, PCR NEGATIVE (NEGATIVE); Resp Syncytial Virus, PCR NEGATIVE (NEGATIVE); SARS-Cov-2 (COVID-19) PCR, MMC NEGATIVE (NEGATIVE)
[2022-03-15] MEDS ORDERED: ALLO300 PO (16:50)
[2022-03-15] MEDS ORDERED: ATORVASTATIN CA80 M1 PO (16:51)
[2022-03-15] MEDS ORDERED: FUROSEMIDE40 MG PO (16:53)
[2022-03-15] MEDS ORDERED: GLIP5 PO (16:55)
[2022-03-15] MEDS ORDERED: ISOSORBIDE MONO30 MG PO (16:56)
[2022-03-15] MEDS ORDERED: METO50ER PO (16:57)
[2022-03-15] MEDS ORDERED: KLOR-CON 1010 ME1 PO (16:59)
[2022-03-15] MEDS ORDERED: XARELTO10 M1 PO (17:00)
[2022-03-15] MEDS ORDERED: SERT25 PO (17:01)
[2022-03-15] MEDS ORDERED: TRAZ100 PO (17:02)
[2022-03-15] MEDS ORDERED: Prozac20 MG PO (20:21)
[2022-03-16 07:43] LABS: BASOPHILS ABSOLUTE AUTO 0.03 K/mm3 (0.00-0.23); BASOPHILS PERCENT AUTO 1 % (0-2); EOSINOPHILS ABSOLUTE AUTO 0.25 K/mm3 (0.00-0.68); EOSINOPHILS PERCENT AUTO 4 % (0-6); Hemoglobin 11.6 g/dL (13.5-17.5); IMMATURE GRAN ABSOLUTE AUTO 0.07 K/mm3 (0.00-0.10); IMMATURE GRAN PERCENT AUTO 1 % (0-1); LYMPHOCYTES ABSOLUTE AUTO 0.88 K/mm3 (0.84-5.20); LYMPHOCYTES PERCENT AUTO 15 % (21-46); MONOCYTES ABSOLUTE AUTO 0.54 K/mm3 (0.16-1.47); MONOCYTES PERCENT AUTO 9 % (4-13); Mean Corpuscular HGB 30.8 pg (26.0-34.0); Mean Corpuscular HGB Conc 32.2 g/dL (31.5-36.5); Mean Corpuscular Volume 96 fL (80-100); Mean Platelet Volume 9.6 fL (9.1-12.4); NEUTROPHILS ABSOLUTE AUTO 3.97 K/mm3 (1.96-9.15); NEUTROPHILS PERCENT AUTO 69 % (41-73); Platelet Count 175 K/mm3 (150-400); RDW Coefficient Variation 16.4 % (11.7-14.2); RDW Standard Deviation 56.1 fL (35.1-46.3); Red Blood Cell Count 3.77 M/mm3 (4.30-5.90); White Blood Cell Count 5.74 K/mm3 (4.00-11.30)
[2022-03-16 07:46] LABS: Albumin, Blood 3.1 g/dL (3.4-5.0); Albumin/Globulin Ratio 0.9 (0.8-1.8); Bilirubin, Total 1.7 mg/dL (0.1-1.0); Bun/Creatinine Ratio 29.2 (12.0-20.0); Calcium, Blood 8.6 mg/dL (8.5-10.1); Creatinine, Blood 1.13 mg/dL (0.60-1.20); Globulin, Blood 3.3 g/dL (2.2-4.0); Potassium, Blood 4.1 mmol/L (3.5-5.5); Total Protein, Blood 6.4 g/dL (6.4-8.2)
--- NOTE | 2022-03-16 18:09 | NUR ---
SHIFT SUMMARY- PT INDEPENDANT IN ROOM. PT CHAIRFAST THROUGHOUT MOST OF SHIFT. CARDIAC IN WITH PT AROUND NOON FOR ECHO. C/O OF BREATHLESSNESS WITH RESTROOM TRIPS. PREFERS TO SIT FOR OXYGENATION, O2 6L. PT APPETITE GOOD. PT RESTING COMFORTABLY WITH CALL LIGHT WITHIN REACH.
--- NOTE | 2022-03-16 18:51 | NUR ---
THIS INSPECTOR MULTIFOCAL LENS HAS REVIEWED NOTES AND ASSESSMENTS BY CHRISTINA CROW AND AGREES WITH THEM.
--- NOTE | 2022-03-17 05:10 | NUR ---
SALES ESTIMATOR SUMMARY PATIENT A&O X4 AND COOPERATIVE. PT CONTINUES TO EXPERIENCE SOB WITH EXERTION BUT DENIES SOB AT REST. HE DENIES PAIN. HIS METOPROLOL WAS HELD D/T HR OUTSIDE PARAMETERS (48 BPM). PATIENT SLEPT THROUGH MOST OF THE SHIFT. NO OTHER ACUTE CHANGES THIS SHIFT.
[2022-03-17] MEDS ORDERED: Ventolin5 MG/1 ML INH (14:17)
[2022-03-17] MEDS ORDERED: FURO40 PO (14:18)
[2022-03-17] MEDS ORDERED: Prinivil10 MG PO (14:19)
--- NOTE | 2022-03-17 14:58 | NUR ---
DISCHARGE NOTE D/C HOME ORDERS REVIEVED AND REVIEWED. HOME INSTRUCTIONS AND MEDICATIONS REVIEWED WITH PT, RX SENT TO PT'S [facility]AC[facility] OF CHOICE OF [facility] IN [place]. APPOINMENT SCHEDULED WITH [facility] SP[facility] MACHINE OPERATOR FOR TOMORROW, SUNDAY 03/18. PT AND VERBALIZE UNDERSTANDING AND AGREE. PT DISCHARGED HOME AND WAS EXCORTED OUT VIA WHEELCAHIR AND TRANSPORTED HOME BY DAUGHTER VIA PRIVATE VEHICLE.
== END 2022-03-17 14:59 | disposition home or self-care (01) ==
LOC: ER 13:34 → MEDS 13:35 → ER 13:35 → MEDS 13:36
PROVIDERS: Emergency Medicine; Physician Assistant; ADMIT Internal Medicine
DX: J96.01 Acute respiratory failure with hypoxia (principal); I11.0 Hypertensive heart disease with heart failure; I50.32 Chronic diastolic (congestive) heart failure; E11.9 Type 2 diabetes mellitus without complications; E78.5 Hyperlipidemia, unspecified; I48.0 Paroxysmal atrial fibrillation; E66.01 Morbid (severe) obesity due to excess calories; F32.A Depression, unspecified; M10.9 Gout, unspecified; J43.9 Emphysema, unspecified; R91.8 Other nonspecific abnormal finding of lung field; J98.11 Atelectasis; I25.10 Atherosclerotic heart disease of native coronary artery without angina pectoris; I77.810 Thoracic aortic ectasia; Z79.84 Long term (current) use of oral hypoglycemic drugs; Z95.5 Presence of coronary angioplasty implant and graft; Z96.649 Presence of unspecified artificial hip joint; Z87.891 Personal history of nicotine dependence; Z20.822 Contact with and (suspected) exposure to COVID-19
CPT/HCPCS: 0241U; 36415; 71046; 71275; 80053; 82947; 85025; 85379; 85610; 93005; 93010; 93308; 93321; 94660; 94664; 94760; 94762; 99285-25; A9270; G0378; Q9967

== ENCOUNTER 2022-04-24 20:20 | Inpatient (IN) | payer OTHER ==
[~2022-04-24] VITALS: Ht 177.8 cm; Wt 161.7 kg
[~2022-04-24 20:20] MED LIST changes: +ATORVASTATIN CA80 M1 PO; +FURO40 PO; +FUROSEMIDE40 MG PO; +KLOR-CON 1010 ME1 PO; +METO50ER PO; +Prinivil10 MG PO; +Prozac20 MG PO; +SERT25 PO; +Ventolin5 MG/1 ML INH; +XARELTO10 M1 PO
[2022-04-24 20:38] LABS: Hematocrit 45.4 % (37.0-53.0); Hemoglobin 15.3 g/dL (13.5-17.5); Mean Corpuscular HGB 30.7 pg (26.0-34.0); Mean Corpuscular HGB Conc 33.7 g/dL (31.5-36.5); Mean Corpuscular Volume 91 fL (80-100); Mean Platelet Volume 9.2 fL (9.1-12.4); NRBC ABSOLUTE 0.04 K/mm3 (0.00-0.02); NRBC Auto 0.3 /100 WBC (0.0-0.2); Platelet Count 152 K/mm3 (150-400); RDW Coefficient Variation 16.1 % (11.7-14.2); RDW Standard Deviation 53.1 fL (35.1-46.3); Red Blood Cell Count 4.99 M/mm3 (4.30-5.90); White Blood Cell Count 14.99 K/mm3 (4.00-11.30)
[2022-04-24 20:56] LABS: PCO2 Arterial 35.3 mmHg (35-45); PO2 Arterial 59.2 mmHg (80-100); pH Blood Arterial 7.44 (7.35-7.45)
[2022-04-24 20:57] LABS: BAND PERCENT MAN 23 % (0-8); BASOPHILS PERCENT MAN 0 % (0-2); EOSINOPHILS ABSOLUTE MAN 0.14 K/mm3 (0.00-0.68); EOSINOPHILS PERCENT MAN 1 % (0-6); LYMPHOCYTES ABSOLUTE MAN 0.44 K/mm3 (0.84-5.20); LYMPHOCYTES PERCENT MAN 3 % (21-46); MONOCYTES ABSOLUTE MAN 1.04 K/mm3 (0.16-1.47); MONOCYTES PERCENT MAN 7 % (4-13); NEUTROPHILS ABSOLUTE MAN 13.34 K/mm3 (1.96-9.15); SEG NEUTROPHILS PERCENT MAN 66 % (41-73); TOTAL CELLS COUNTED 100
[2022-04-24 21:01] LABS: Albumin, Blood 3.6 g/dL (3.4-5.0); Bilirubin, Total 1.2 mg/dL (0.1-1.0); Bun/Creatinine Ratio 25.4 (12.0-20.0); Calcium, Blood 8.5 mg/dL (8.5-10.1); Creatinine, Blood 1.22 mg/dL (0.60-1.20); Globulin, Blood 3.6 g/dL (2.2-4.0); Potassium, Blood 4.2 mmol/L (3.5-5.5); Total Protein, Blood 7.2 g/dL (6.4-8.2)
[2022-04-24 23:32] LABS: CPK Creatine Kinase 148 U/L (39-308)
[2022-04-24 23:33] LABS: Influenza A, PCR NEGATIVE (NEGATIVE); Influenza B, PCR NEGATIVE (NEGATIVE); Resp Syncytial Virus, PCR NEGATIVE (NEGATIVE); SARS-Cov-2 (COVID-19) PCR, MMC NEGATIVE (NEGATIVE)
--- NOTE | 2022-04-25 06:08 | NUR ---
ADMIT NOTE/SHIFT SUMMARY PT ARRIVED TO PCU FROM ED VIA ED STRETCHER AT 0500. PT AMBULATED INDEPENDENTLY FROM ED STRETCHER TO PCU BED. PT A&OX4, PLEASANT. SP02>90% ON 3L NC. PT APPEARS SOB, AUDIBLE WHEEZE. CPAP BROUGHT UP BY AIDE FROM ER, PLACED ON CPAP 18 CM, 3L BLEED IN. TACHYPENIC. TELEMETRY SHOWS NSR, HR 60'S. PT DENIES PAIN. IV'S SALINE LOCKED. ORIENTED TO ROOM, CALL LIGHT. TO BRING IN MEDICATION LIST FOR MED REC. CURRENTLY SLEEPING IN ROOM. CALL LIGHT IN REACH.
[2022-04-25 07:44] LABS: BASOPHILS ABSOLUTE AUTO 0.07 K/mm3 (0.00-0.23); BASOPHILS PERCENT AUTO 0 % (0-2); Hematocrit 41.6 % (37.0-53.0); Hemoglobin 13.5 g/dL (13.5-17.5); LYMPHOCYTES ABSOLUTE AUTO 0.44 K/mm3 (0.84-5.20); LYMPHOCYTES PERCENT AUTO 2 % (21-46); MONOCYTES ABSOLUTE AUTO 0.88 K/mm3 (0.16-1.47); MONOCYTES PERCENT AUTO 4 % (4-13); Mean Corpuscular HGB 30.3 pg (26.0-34.0); Mean Corpuscular HGB Conc 32.5 g/dL (31.5-36.5); Mean Corpuscular Volume 94 fL (80-100); Mean Platelet Volume 9.6 fL (9.1-12.4); Platelet Count 170 K/mm3 (150-400); RDW Coefficient Variation 16.6 % (11.7-14.2); RDW Standard Deviation 56.6 fL (35.1-46.3); Red Blood Cell Count 4.45 M/mm3 (4.30-5.90); White Blood Cell Count 21.85 K/mm3 (4.00-11.30)
[2022-04-25 07:48] LABS: EOSINOPHILS PERCENT AUTO 0 % (0-6); IMMATURE GRAN ABSOLUTE AUTO 0.44 K/mm3 (0.00-0.10); IMMATURE GRAN PERCENT AUTO 2 % (0-1); NEUTROPHILS ABSOLUTE AUTO 20.02 K/mm3 (1.96-9.15); NEUTROPHILS PERCENT AUTO 92 % (41-73)
[2022-04-25 08:03] LABS: Albumin, Blood 3.2 g/dL (3.4-5.0); Albumin/Globulin Ratio 0.9 (0.8-1.8); Bun/Creatinine Ratio 20.6 (12.0-20.0); Calcium, Blood 8.1 mg/dL (8.5-10.1); Creatinine, Blood 1.94 mg/dL (0.60-1.20); Globulin, Blood 3.4 g/dL (2.2-4.0); Potassium, Blood 4.7 mmol/L (3.5-5.5); Total Protein, Blood 6.6 g/dL (6.4-8.2)
[2022-04-25] MEDS ORDERED: DESV50 PO (12:14)
[2022-04-25] MEDS ORDERED: FURO20 PO (12:14)
[2022-04-25] MEDS ORDERED: Ventolin5 MG/1 ML INH (12:15)
--- NOTE | 2022-04-25 15:15 | NUR ---
Patient is lying in bed and alert. Patient immediately tells me about his fall, his medical issues and his current bout with PNA. He speaks about his love for his family, his love for God and his worries. I provide therapeutic listening, scripture recitaion and prayer. Patient responds well and voices appreciation for the time and care. I will continue to remain available to patient and family.
--- NOTE | 2022-04-25 15:21 | NUR ---
Pt immediately tells me about the suididal of her dtr, the recent of her son due to medical issues, her relationship complications, medical complications with COVID and her heart and her financial struggles due to ID theft and bank accounts emptied. She is tearful at times. We talk about all that she has overcome, the anchor that she has because of her [employer]ism sonja and the love that she has because of her dtr in [place]. I normalize her frustrations and fears, listen empathically and provide pastoral eap counselor, grief support and prayer. Pt responds well and shows signs of increased peace and hope.
--- NOTE | 2022-04-25 20:50 | NUR ---
PT UPDATE PT ASKED FOR A SLEEP AIDE, STATES HE TAKES MELATONIN AT HOME. CALL PLACED TO MD TERRAZAS. MD TERRAZAS WITH ORDERS FOR 5MG PO MELATONIN, SEE EMAR.
--- NOTE | 2022-04-26 06:14 | NUR ---
SHIFT SUMMARY PT A&OX4. SP02>90% ON 3L NC, CPAP W/ 3L BLEED IN, SWITCHED TO NASAL MASK THIS EVENING, PT STATED MORE COMFORTBLE. TELEMETRY SHOWS AFIB, HR 100'S-130'S. PT W/ ELEVATED HR, CALL PLACED TO MD ROGERS. MD ROGERS W/ ORDERS FOR CARDIZEM PUSH SEE EMAR. HR CONTINUED TO BE ELEVATED. CALL PLACED TO MD ROGERS. MD ROGERS WITH ORDERS FOR CARDIZEM DRIP, SEE EMAR. PT USED URINAL TO VOID W/ STAFF ASSISTANCE. NO BM THIS SHIFT. REPOSITIONED IN BED W/ STAFF HELP. CALL LIGHT IN REACH. SLEPT OFF AND ON T/O NIGHT.
[2022-04-26 08:22] LABS: Hemoglobin 12.9 g/dL (13.5-17.5); Mean Corpuscular HGB 30.8 pg (26.0-34.0); Mean Corpuscular HGB Conc 33.1 g/dL (31.5-36.5); Mean Corpuscular Volume 93 fL (80-100); Mean Platelet Volume 9.8 fL (9.1-12.4); Platelet Count 131 K/mm3 (150-400); RDW Coefficient Variation 16.4 % (11.7-14.2); RDW Standard Deviation 55.9 fL (35.1-46.3); Red Blood Cell Count 4.19 M/mm3 (4.30-5.90); White Blood Cell Count 13.02 K/mm3 (4.00-11.30)
[2022-04-26 08:50] LABS: Albumin, Blood 2.7 g/dL (3.4-5.0); Anion Gap 6 mmol/L (6-16); Blood Urea Nitrogen 41 mg/dL (8-24); Bun/Creatinine Ratio 25.3 (12.0-20.0); CO2, Blood 26 mmol/L (21-32); Calcium, Blood 8.1 mg/dL (8.5-10.1); Chloride, Blood 102 mmol/L (98-108); Creatinine, Blood 1.62 mg/dL (0.60-1.20); Glomerular Filtration Rate 47 (60-); Glucose, Blood 153 mg/dL (70-99); Phosphorus, Blood 3.3 mg/dL (2.5-4.9); Potassium, Blood 4.2 mmol/L (3.5-5.5); Sodium, Blood 134 mmol/L (136-145)
[2022-04-26 08:51] LABS: BAND PERCENT MAN 19 % (0-8); BASOPHILS PERCENT MAN 0 % (0-2); EOSINOPHILS PERCENT MAN 0 % (0-6); LYMPHOCYTES ABSOLUTE MAN 0.52 K/mm3 (0.84-5.20); LYMPHOCYTES PERCENT MAN 4 % (21-46); MONOCYTES ABSOLUTE MAN 0.26 K/mm3 (0.16-1.47); MONOCYTES PERCENT MAN 2 % (4-13); NEUTROPHILS ABSOLUTE MAN 12.23 K/mm3 (1.96-9.15); SEG NEUTROPHILS PERCENT MAN 75 % (41-73); TOTAL CELLS COUNTED 100
--- NOTE | 2022-04-26 10:34 | NUR ---
CARE ASSUMPTION THIS RN ASSUMED CARE AT 0700 FROM ARIELA Rodriguez RN. VSS. TELE AFIB 110-120S. PATIENT IS ALERT AND ORIENTED X4. PERRLA. NEURO IS INTACT. PATIENT REPORTS MILD PAIN WITH MOVEMENT AND TOUCH TO HIS RIGHT LOWER EXTREMITIY. EXTREMITIY IS WARM TO TOUCH, EDEMA, AND RED/PURLE DISCOLORATION. THIS RN INFORMED MD MUNOZ AND PLAN IS TO HAVE AN ULTRASOUND DONE OF THE EXTREMITY. PATIENT REPORTS NO CHEST PAIN/PRESSURE. CAP REFILL <3SECONDS. STRONG PULSES. EDEMA +2. PATIENT REPORTS NO SHORTNESS OF BREATH. LUNG SOUNDS CLEAR UPPER LOBES AND DIM LOWER LOBES. PATIENT SKIN HAS RIGHT KNEE ABRIASN AND BLANCHABLE REDNESS TO COCCYX. ENCOURAGED PATIENT TO REPOSITION, PATIENT ABLE TO DO THIS INDEPDENTLY. SEE SHIFT ASSESSMENT FOR FULL DETAILS. PATIENT TRANSFERD THEMSELVE TO THE BEDSIDE CHAIR. THIS RN PROVIDED EDUCATION ON SAFETY AND FALL PREVENTION AND TO CALL FOR ASSISTANCE SO WE CAN ENSURE NO FALLS HAPPEN. THIS RN USED THERAPEUTIC COMMUNICATION AND ACTIVE LISTENING. PATIENT VERABLIZED UNDERSTANDING AND USED CALL LIGHT BEFORE GETTING UP AND MOVING BACK TO BED. CALL LIGHT WITHIN REACH AND BED IN LOWEST POSITION. THIS RN WILL DO HOURLY ROUNDING AND PROVIDE CARE.
--- NOTE | 2022-04-26 14:12 | NUR ---
UPDATE PATIENT COMPLAINING OF RIGHT LOWER LEG PAIN. RIGHT LOWER LEG HAS EDEMA AND IS SWOLLEN AND WARM TO THE TOUCH. THIS RN INFORMED MD MUNOZ. MD MUNOZ ORDERED A ULTRSOUND AND CT OF THE LEG. PATIENT STATED PAIN INCREASED TO 10/10. THIS RN CALLED MD MUNOZ AND INFORMED HER. PAIN MED ORDER PLACED AND THIS RN GAVE MEDICATION PER EMAR ORDER. SEE EMAR. THIS HELPED RELIEVE HIS PAIN TO A 8/10. ULTRSOUND WAS NEGATIVE FOR DVT. SEE IMAGING. PATIENT DOES HAVE A HISTORY OF DVT. THIS RN DID RECEIVE IN REPORT THAT PATIENT HAD A FALL AT HOME PRIOR AND HAS AN ABRAISION ON HIS RIGHT KNEE FROM THIS. PATIENT HAS BEEN TRANSFERED HIMSELF TO AND FROM THE BED. THIS RN REMINDED HIM TO USE HIS CALL LIGHT BEFORE GETTING UP, SO WE CAN BE THERE FOR SAFETY. PATIENT VERABLIZED UNDERSTANDING. DOOR IS LEFT OPEN SO WE CAN SEE IF PATIENT TRYS TO GET UP AND TAB ALARM ON. PATIENT HAS HAD MULTIPLE EPISODES OF URINATING ON THE FLOOR TODAY DUE TO NOT SEEING CALL LIGHT. CALL LIGHT WITHIN REACH.
--- NOTE | 2022-04-26 16:57 | NUR ---
SHIFT SUMMARY PATIENT NEURO REMAINS INTACT. VSS. TELE AFIB 110. NO ACUTE CHANGES THIS SHIFT. PATIENT REPORTED THAT THE LEG PAIN IS STARTING TO COME BACK AND RATED IT AT A 3 ON A SCALE FROM 0-10. THIS RN WILL MEDICATE PER EMAR WHEN MEDICATION IS WITHIN THE WINDOW. PATIENT VERABLIZED UNDERSTANDING. PATIENT RESTING IN BED WITH BED IN LOWEST POSITION AND CALL LIGHT WITHIN REACH. WILL CONTINUE TO MONITOR AND PROVIDE CARE UNTIL HAND OFF WITH NEXT SHIFT.
--- NOTE | 2022-04-27 04:36 | NUR ---
SHIFT SUMMARY PT ALERT, ORIENTED. SP02>90% ON 3L NC/CPAP 18 CM W/ 3L BLEED IN. TELEMETRY SHOWS AFIB, HR MOSTLY 90'S-100'S. PT HAS +2 EDEMA IN RLL, WARM TO TOUCH, DARKISH RED/PURPLE FROM BOTTOM OF KNEE TO TOP OF ANKLE. C/O OF 10/10 PAIN. MEDICATED PER EMAR. PT WAS ABLE TO SLEEP 8 HOURS D/T RELIEF OF PAIN. PT UP TO BSC TO VOID, REMINDED TO USE CALL LIGHT FOR SAFETY WHEN HE NEEDS TO CALL. ABX INFUSED PER EMAR. PT IN CHAIR FOR BEGINNING OF SHIFT. NOW RESTING IN BED. CALL LIGHT IN REACH.
[2022-04-27 04:43] LABS: BASOPHILS ABSOLUTE AUTO 0.04 K/mm3 (0.00-0.23); BASOPHILS PERCENT AUTO 0 % (0-2); EOSINOPHILS ABSOLUTE AUTO 0.26 K/mm3 (0.00-0.68); EOSINOPHILS PERCENT AUTO 2 % (0-6); Hematocrit 43.4 % (37.0-53.0); Hemoglobin 13.7 g/dL (13.5-17.5); IMMATURE GRAN ABSOLUTE AUTO 0.14 K/mm3 (0.00-0.10); IMMATURE GRAN PERCENT AUTO 1 % (0-1); LYMPHOCYTES ABSOLUTE AUTO 1.12 K/mm3 (0.84-5.20); LYMPHOCYTES PERCENT AUTO 9 % (21-46); MONOCYTES ABSOLUTE AUTO 0.83 K/mm3 (0.16-1.47); MONOCYTES PERCENT AUTO 7 % (4-13); Mean Corpuscular HGB Conc 31.6 g/dL (31.5-36.5); Mean Corpuscular Volume 95 fL (80-100); Mean Platelet Volume 9.9 fL (9.1-12.4); NEUTROPHILS ABSOLUTE AUTO 9.77 K/mm3 (1.96-9.15); NEUTROPHILS PERCENT AUTO 80 % (41-73); Platelet Count 143 K/mm3 (150-400); RDW Coefficient Variation 16.3 % (11.7-14.2); RDW Standard Deviation 57.1 fL (35.1-46.3); Red Blood Cell Count 4.56 M/mm3 (4.30-5.90); White Blood Cell Count 12.16 K/mm3 (4.00-11.30)
[2022-04-27 05:03] LABS: Albumin, Blood 2.9 g/dL (3.4-5.0); Anion Gap 8 mmol/L (6-16); Blood Urea Nitrogen 47 mg/dL (8-24); Bun/Creatinine Ratio 31.8 (12.0-20.0); CO2, Blood 27 mmol/L (21-32); Chloride, Blood 102 mmol/L (98-108); Creatinine, Blood 1.48 mg/dL (0.60-1.20); Glomerular Filtration Rate 53 (60-); Glucose, Blood 143 mg/dL (70-99); Phosphorus, Blood 3.9 mg/dL (2.5-4.9); Potassium, Blood 4.5 mmol/L (3.5-5.5); Sodium, Blood 137 mmol/L (136-145)
--- NOTE | 2022-04-27 15:19 | NUR ---
END OF SHIFT SUMMARY: PATIENT HAS BEEN ALERT AND ORIENTED, DENIES CHEST PAIN, PRESSURE OR PALPATATIONS. HAS BEEN AFEBRILE, HOWEVER, HAVE BEEN TREATING THE PATIENT WITH EMAR MEDICATIONS THAT HAVE ANTIPYRETICS. YAS RLE HAS SOME VERY MINOR IMPROVEMENT, SKIN MARKED AND NO WEEPING PRESENT. FERMÍNETN SHOWEREED, THIS AM. IV'S FLUSHED WITH NO CONCERNS FOR EITHER. PATIENT HAS BEEN ON AND OFF 2L VIA NC, MAINLY FOR COMFORT BUT AFTER A WHIEL WILL START SATURATING 86-90%. PATIENT DOES ENDORSE SOME MILD GENRERALIZED WEAKNESS. IMPROVING THROUGH THE DAY. PATIENT HAS WORKED WITH PT AND OT. NO LARGE CONCERNS FOR PATIENT AT THIS TIME, CALF MEASUREMENTS ON THE BOARD TOP OF CALF 49.5CM AND BOTTOM OF CALF 32.5, WILL HAVE MACHINE OR MACHINERY MECHANIC MEASURE AND COMPARE AND CONTRAST. WILL CONTINUE TO MONITOR UNTIL SHIFT CAHNGE.
[2022-04-28 04:54] LABS: BASOPHILS ABSOLUTE AUTO 0.02 K/mm3 (0.00-0.23); BASOPHILS PERCENT AUTO 0 % (0-2); EOSINOPHILS PERCENT AUTO 2 % (0-6); Hematocrit 40.7 % (37.0-53.0); Hemoglobin 13.2 g/dL (13.5-17.5); IMMATURE GRAN ABSOLUTE AUTO 0.05 K/mm3 (0.00-0.10); IMMATURE GRAN PERCENT AUTO 1 % (0-1); LYMPHOCYTES ABSOLUTE AUTO 0.62 K/mm3 (0.84-5.20); LYMPHOCYTES PERCENT AUTO 6 % (21-46); MONOCYTES PERCENT AUTO 9 % (4-13); Mean Corpuscular HGB Conc 32.4 g/dL (31.5-36.5); Mean Corpuscular Volume 93 fL (80-100); Mean Platelet Volume 9.8 fL (9.1-12.4); NEUTROPHILS ABSOLUTE AUTO 8.76 K/mm3 (1.96-9.15); NEUTROPHILS PERCENT AUTO 83 % (41-73); Platelet Count 150 K/mm3 (150-400); RDW Coefficient Variation 15.8 % (11.7-14.2); RDW Standard Deviation 53.9 fL (35.1-46.3); White Blood Cell Count 10.55 K/mm3 (4.00-11.30)
[2022-04-28 05:13] LABS: Albumin, Blood 2.7 g/dL (3.4-5.0); Anion Gap 5 mmol/L (6-16); Blood Urea Nitrogen 45 mg/dL (8-24); Bun/Creatinine Ratio 35.7 (12.0-20.0); CO2, Blood 31 mmol/L (21-32); Calcium, Blood 9.1 mg/dL (8.5-10.1); Chloride, Blood 98 mmol/L (98-108); Creatinine, Blood 1.26 mg/dL (0.60-1.20); Glomerular Filtration Rate 64 (60-); Glucose, Blood 182 mg/dL (70-99); Phosphorus, Blood 3.5 mg/dL (2.5-4.9); Potassium, Blood 4.4 mmol/L (3.5-5.5); Sodium, Blood 134 mmol/L (136-145)
--- NOTE | 2022-04-28 05:48 | NUR ---
PACKING HOUSE SUPERVISOR SUMMARY PT IS ALERT AND COMMUNICATING APPROPRIATELY. PT HAS REMAINED IN AFIB 80'S-110 THIS SHIFT. PT'S BP WNL AND STABLE. PT AFEBRILE THIS SHIFT. PT HAS HAD C/O INCREASED PAIN IN HIS RLE THIS SHIFT, MEDICATED PER EMAR W MINIMAL RELIEF. PT ALSO REPORTING FEELING THOUGH HE HAS "BODY ACHES" AND GENERAL MALAISE THIS SHIFT. PT MAINTAINED O2 SATS >90% ON 2L NC AND CPAP W 3L BLEED IN WHILE ASLEEP. WILL REPORT TO ONCOMING RN.
--- NOTE | 2022-04-28 13:14 | NUR ---
Patient is tearful today as he explains about his infection and shows me his red and inflamed leg. He is tearful about his declining medical condition and for missing his family and his dog. He then is also tearful when talking about his love for God and how he still feels blessed and cared for. I provide conversation centered around pt's belief system, and provide companionship and prayer. Pt responds well and shows signs of an elevated mood and a brighter outlook. He states that this specification writer is an suzan sent to lift his spirits. I will continue to remain available to patient and family.
--- NOTE | 2022-04-28 15:34 | NUR ---
END OF SHIFT SUMMARY: PATIENT HAS BEEN AFEBRILE DENIES CHEST PAIN, SWELLING ON LEG VERY VERY MNINIMALLY BETTER, STILL PAINFUL MEDICATED PER MAR, WILL CONTINUE TO MONITOR. PATIENT HAS SOME INCREASED GENERALIZED WEAKNESS THROUGH THE DAY BUT AFTER SLEEPING FOR A MAJORITY OF THE DAY PATIENT HAS BEEN ABLE TO RECOVER FROM SOME OF THE FATIGUE, DID ENDORSE AT THE BEGINING OF THE SHIFT HE HAD BODY ACHES AND FELT LIKE HE HAD FEVER AND CHILLS, NO REPORTS THIS EVENING ONCE MEDICATED WITH PAIN MEDICATIONS. PATIENT IS NOW AC HS, AND HAS NEEDED COVERAGE HE IS WITHOUT HIS GLIPIZIDE CURRENLTY. PATIENT DANITZA HAD DOCUSATE ADDED. WAS DOWNGRADED TO MED WITH TELE. HEART RATE DID INCREASE AND RECIEVED A PRN DOSE OF TARTRATE 25MG THAT REALLY IMPROVED HIS SC. STILL IN THE 90-100'S INSTEAD OF 100-120. NO WEEPING FROM THE LEG. WILL CONTINUE TO MONITOR UNTIL SHIFT CHANGE
--- NOTE | 2022-04-28 17:19 | NUR ---
1534 ASSUMED CARE OF PATIENT. PT SITTING IN CHAIR, DENIES ANY NEEDS AT THIS TIME
--- NOTE | 2022-04-28 17:20 | NUR ---
1706 REPORTS 5/10 THROBBING RLE PAIN, PERCOCET GIVEN WITH RAQUEL CRACKERS
--- NOTE | 2022-04-29 06:44 | NUR ---
NOC SHIFT SUMMARY PT ORIENTED X4 OVERNIGHT, VSS PER PT TREND. AFIB 90S-100S ON TELEMETRY. COMPLAINTS OF SIGNIFICANT PAIN TO RLE, LEG RED AND SWOLLEN. PAIN CONTROLLED WITH AVAILABLE PRNS. PT SLEPT WELL BUT AWAKENED WITH PAIN - WORE CPAP ALL NIGHT W/3L BLEED IN. WILL CONTINUE TO MONITOR AND PASS ON TO DAY RN
--- NOTE | 2022-04-29 08:04 | NUR ---
ASSUMED CARE OF PT AT 0700. PT REPORTING 10/10 PAIN TO RLE, CURRENT PAIN CONTROL MEDICATIONS APPEAR TO BE INEFFECTIVE. DR TERRAZAS NOTIFIED, NEW ORDERS RECEIVED. NO OTHER NEEDS IDENTIFIED AT THIS TIME, CALL LIGHT IN REACH, WILL CONTINUE TO MONITOR.
--- NOTE | 2022-04-29 18:16 | NUR ---
SHIFT SUMMARY PATIENT IS ALERT AND ORIENTED. PATIENT TRANSFERRED TO ROOM FROM PCU 6. NO ACUTE EVENTS SINCE ARRIVING. WILL MONITOR UNTIL SHIFT CHANGE.
--- NOTE | 2022-04-29 21:10 | NUR ---
PT DENIED REQUEST FOR PAIN MEDICATION - REPORTS HE WILL USE THE CALL LIGHT WHEN HE NEEDS PAIN MEDICATION. MEDICATED WITH TYLENOL EARLIER - SEE EMAR.
--- NOTE | 2022-04-29 22:31 | NUR ---
PT REPORTS PAIN TO RLE INCREASED AFTER TOOL CRIB CLERK REPOSIONED PT - MEDICATED PER EMAR
--- NOTE | 2022-04-29 23:00 | NUR ---
PT HAS A NOSE CPAP IN PLACE, CONTINUOUS BIOX ON - SATS DROPPING TO 84-85%, PT IS A MOUTH BREATHER - RT NOTIFIED. TRAVIS REPORTED TO ADJUST PT'S O2 LEVEL TO 10L - ADJUSTED REQUESTED.
--- NOTE | 2022-04-29 23:15 | NUR ---
RT TRAVIS IN ROOM - REPORTS HE ADJUSTED PT'S O2 TO 15L, AND REPORTED HIS MOUTH BREATHING IS THE ISSUE. WILL CONTINUE TO MONITOR O2 SATURATIONS ON CONTINUOUS BIOX. CALL LIGHT WITHIN REACH. BED IN LOW POSITION. FLUIDS AT BEDSIDE.
[2022-04-30 05:13] LABS: Bun/Creatinine Ratio 35.4 (12.0-20.0); Creatinine, Blood 1.3 mg/dL (0.60-1.20)
--- NOTE | 2022-04-30 06:17 | NUR ---
SHIFT SUMMARY - PT NEEDED INCREASED OXYGEN WITH CPAP USE, PT HAD A NASAL CPAP IN PLACE, AND PT IS A MOUTH BREATHER. CPAP OFF THIS AM AT 0445, 3L O2 PLACED ON VIA NC. PT REQUESTING TO SIT UP - 2 PERSON ASSIST TO DANGLE, PT IS MORBIDLY OBESE. PT SAT UP FOR APPX 45 MINUTES, DANGLED, THEN DECKHAND TUNA BOAT REPORTS ASSISTING HIM BACK INTO BED. RLE REMAINS UNCHANGED, MARKED AREAS BY PREVIOUS STAFF MEMBER. CALL LIGHT WITHIN REACH. FLUIDS AT BEDSIDE. BED IN LOW POSITION. WILL CONTINUE TO MONITOR UNTIL AM SHIFT CHANGE.
--- NOTE | 2022-04-30 19:16 | NUR ---
END OF SHIFT SUMMARY: PATIENT KEPT LEG ELEVATED WHEN IN BED. PATIENT UP TO THE RECLINER MULTIPLE TIMES DURING THE SHIFT. PATIENT REPORTS CONCERNS ABOUT A SAFE DISCHARGE HOME AND GETTING THE SUPPORT HE NEEDS. PATIENT WORKED WITH PT TODAY. NO SHORTNESS OF BREATH NOTED WITH ACTIVITY. PATIENT REPORTS FATIGUE AFTER BEING IN THE RECLINER FOR AN EXTENDED PERIOD OF TIME. REDNESS ON RLE WAS WITHIN THE SKIN PEN MARKINGS. MINIMAL AMOUNTS OF SEROUS DRAINAGE NOTED. MEDICATED WITH PRN BOWEL MEDICATIONS. PATIENT REPORTS FEELING SLIGHTLY CONSTIPATED. DENIED NEED FOR FURTHER INTERVENTION AT THIS TIME.
--- NOTE | 2022-05-01 04:49 | NUR ---
ASSUMED CARE OF PT AT 1900. PT IS A&OX4, MOD ASSIST OOB AMD IS ABLE TO MAKE NEEDS KNOWN. PT SLEEPS THROUGH THE NIGHT W/ CPAP ON, SLEEPS 6+ HOURS THIS SHIFT. DURING SHIFT CHANGE PT WAS STANDING UP AND COMPLAINED OF SOME WEAKNESS WHILE TRYING TO AMBULATE FROM CHAIR TO BED. STAFF ASSISTED PT BACK TO CHAIR BUT PT MISSED CHAIR AND SLID TO FLOOR. VITALS WERE CHECKED ONCE PT WAS BACK IN BED, NO COMPLAINTS OF PAIN ONLY WEAKNESS. PT RECEIVING IV ABX FOR CELLULITIS. USES BU TO VOID. CALLS APPROPRIATELY
--- NOTE | 2022-05-01 19:33 | NUR ---
END OF SHIFT SUMMARY: PATIENT HAD INCREASED STRENGTH THIS SHIFT. PATIENT WAS STRONG ENOUGH TO WALK TO THE BATHROOM. PATIENT REPORTED THAT HE WAS FEELING BETTER TODAY. PATIENT CONTINUES TO HAVE SMALL AMOUNTS OF SEROUS DRAINAGE FROM THE CELLULITIS. TODAY THERE ARE INTACT BLISTERS ON THE CELLULITIS. PATIENT PAIN CONTROLLED WITH PRN MEDICATIONS AND REPOSITIONING. PATIENT UP TO THE RECLINER AND UP IN THE ROOM. PATIENT SPO2 STABLE ON 3L WITH SATURATIONS BETWEEN 94-98%. PATIENT EXPERIENCES TACHYCARDIA (UP TO 110S) WITH EXERTION.
--- NOTE | 2022-05-02 05:31 | NUR ---
SHIFT SUMMARY: PT IS ALERT AND ORIENTED. PT IS CALM AND COOPERATIVE WITH CARE. PT IS A MAX ASSIST, UP TO THE CHAIR AND BACK TO THE BED ONCE OVERNIGHT. PT CALLS APPROPRIATELY. PT REPORTS PAIN ON SEVERAL OCCASIONS, MEDICATING PER EMAR. PT REPORTS SOB UPON EXERTION, O2 @ 3L KEEPING SATS > 90%. PT DENIES NAUSEA AND VOMITING. NO ACUTE CHANGES OR COMPLICATIONS THIS SHIFT. BED IN LOW POSITION, CALL LIGHT WITHIN REACH. WILL CONTINUE TO MONITOR.
[2022-05-02 06:27] LABS: Bun/Creatinine Ratio 45.1 (12.0-20.0); Calcium, Blood 8.9 mg/dL (8.5-10.1); Creatinine, Blood 1.13 mg/dL (0.60-1.20); Potassium, Blood 4.4 mmol/L (3.5-5.5)
--- NOTE | 2022-05-02 15:56 | NUR ---
DROWSINESS: PATIENT REPORTED THIS MORNING THAT HE HAD A TERRIBLE EVENING. HE REPORTED THAT HE DID NOT GET MUCH SLEEP, THAT HE COULDN'T GET ANY ONE'S ATTENTION AND THAT HE COULDN'T QUITE UNDERSTAND "WHAT WAS HAPPENING". PATIENT FATIGUED DURING THE MORNING. PATIENT AWAKE DURING MEALS, BUT WILL FREQUENTLY DRIFT OFF WHEN HE IS TALKING WITH THE NURSE. PATIENT FALLS ASLEEP DURING PROCEDURES (SUCH IV STARTS). HR AND O2 SATURATIONS ARE SIMILAR TO THE LAST TWO DAYS. NOTIFIED DR. TERRAZAS. NEW ORDERS PLACED.
--- NOTE | 2022-05-02 18:46 | NUR ---
END OF SHIFT SUMMARY: PATIENT CONTINUES TO REPORT PAIN IN HIS RIGHT ANKLE. PATIENT ALSO REPORTS GOUT PAIN IN HIS JOINTS. PATIENT WAS VERY DROWSY THROUGHOUT THE DAY (SEE NURSE'S NOTE). PATIENT STILL ABLE TO MAKE NEEDS KNOWN, ANSWER QUESTIONS CORRECTLY AND GET UP TO THE RECLINER/EAT MEALS WITHOUT FALLING ASLEEP DURING THE MEAL. WEENED O2 DOWN TO 2L. O2 SATURATIONS 98-99%. PATIENT DENIES SOB OR DIFFICULTY BREATHING. CELLULITIS CONTINUES TO HAVE SEROUS OUTPUT AND BLISTERS. REDNESS IS WITHIN THE DRAWN MARGINS ON THE FRONT AND APPEARS TO BE ABOVE THE MARGINS ON THE BACK OF THE LEG. PATIENT KEPT THE LEG ELEVATED THROUGHOUT THE DAY.
[2022-05-03 01:34] LABS: Source, Urine Foley catheter
[2022-05-03 01:38] LABS: Bilirubin, Urine Neg (Neg); Blood, Urine Neg (Neg); Color, Urine Yellow (P-Yellow); Glucose Qualitative, Urine Neg (Neg); Ketones, Urine Neg (Neg); Leukocyte Esterase, Urine Neg (Neg); Nitrite, Urine Neg (Neg); Protein, Urine Neg (Neg); Urobilinogen, Urine NORM (Normal)
[2022-05-03 02:04] LABS: Appearance, Urine Hazy (Clear)
[2022-05-03 02:05] LABS: Bacteria Many /hpf; Red Blood Cells, Urine 0-2 /hpf (0-2); Squamous Epithelial Cells Not Seen /hpf (Few); White Blood Cells, Urine 0-2 /hpf (0-5)
--- NOTE | 2022-05-03 05:30 | NUR ---
NURSE CHARGE RN SUMMARY ADMITTED FOR SEPSIS. THE PATIENT IS A FULL CODE. HE IS INCREASINGLY DROWSY THIS SHIFT BUT DOES RESPOND TO VERBAL CUES. THE PATIENT REPORTS INCREASING PAIN FROM HIS GOUT AND HIS RANGE OF MOTION IS VERY LIMITED IN BILATERAL ELBOWS AND SHOULDERS. HE WOKE UP CONFUSED A COUPLE TIMES AND WAS UNSURE IF IT WAS DAY OR NIGHT. HE WAS MEDICATED FOR PAIN AND PUT BACK IN BED. DUE TO HIS INCONTINENCE AND RECEIVING IV LASIX BID, ORDER FOR STOLL OBTAINED AND PLACED WITH GOOD OUTPUT. CPAP PLACED WHILE SLEEPING. PRN MELATONIN GIVEN AND PATIENT HAS BEEN RESTING FOR A FEW HOURS.
[2022-05-03 06:02] LABS: Bun/Creatinine Ratio 37.3 (12.0-20.0); Calcium, Blood 9.1 mg/dL (8.5-10.1); Creatinine, Blood 1.26 mg/dL (0.60-1.20); Potassium, Blood 4.3 mmol/L (3.5-5.5)
--- NOTE | 2022-05-03 18:22 | NUR ---
SHIFT SUMMARY PT A&O X 4. VSS. PT PARTICIPATED WITH PT & OT TODAY. SAT UP IN CHAIR FOR A FEW HOURS. POWER GLIDE PLACED BY ECOLOGY PROFESSOR IN L UPPER ARM THIS MORNING. INTACT & PATENT. PT MEDICATED FOR PAIN TODAY PER MD ORDER. (SEE EMAR). PLAN IS POSSIBLE SNF/REHAB PLACEMENT UPON DC IN A FEW DAYS.
--- NOTE | 2022-05-04 06:36 | NUR ---
SHIFT SUMMARY Assumed care of pt at 1900. A/Ox2-3, confusion evident, thinks the year is 2075. Reports no pain, CP/pressure. Max assist. C/o pain in legs, medicated with PRN and elevate legs. Weakness noted t/o. No acute changes.
[2022-05-04 07:15] LABS: Bun/Creatinine Ratio 34.6 (12.0-20.0); Calcium, Blood 8.9 mg/dL (8.5-10.1); Creatinine, Blood 1.07 mg/dL (0.60-1.20); Potassium, Blood 4.5 mmol/L (3.5-5.5)
--- NOTE | 2022-05-04 13:23 | NUR ---
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 Patient voices his concerns about his health and where things may be headed. We play out his concerns and explore positive ways to deal with it and ways to remain hopeful. I provide companionship, gentle university counselor and prayer. Patient responds well and shows signs of increased hope. I will continue to remain available to patient and family.
--- NOTE | 2022-05-04 14:49 | NUR ---
RN NOTE MR WAYNE IS ALERT, ORIENTATED TO SELF, MMC, YEAR AND KNOWS HE WAS ADMITTED FOR SEPSIS, BUT EVIDENCE OF CONFUSION IN HIS CONVERSATIONS. RLE 3+ PITTING EDEMA WITH DARK RED WEEPING SKIN. NUMBNES TO BLE. ENCOURAGED TO KEEP LEGS ELEVATED. UP TO BATHROOM, SHOWER AND CHAIR TODAY, WORKED WITH PT. POWERGLIDE IN PLACE, IV VANCO INFUSED. OXYCODONE GIVEN ONCE SO FAR WHIS SHIFT, IT TOOK THE EDGE OF THE PAIN. USING CPAP WHEN SLEEPING WITH 2L O2. SOB ON EXERTION. S/B RT. CONT PULSE OX IN THE 90S. ON TELE AFIB. BED LOW, CALL LIGHT IN REACH
--- NOTE | 2022-05-04 18:07 | NUR ---
SHIFT SUMMARY NO SIGNIFICANT CHANGES SINCE 1448 NOTE. MR WAYNE HAS TAKEN OXY TWICE TODAY, TYLENOL ONCE. HE SAID THAT HIS PAIN IS "ALWAYS 10/10" BUT DID GET SOME SLEEP THIS AFTERNOON, USING CPAP. NO CALLS FROM ELECTRICIAN LOCOMOTIVE.
[2022-05-05 08:32] LABS: Bun/Creatinine Ratio 32.3 (12.0-20.0); Calcium, Blood 8.6 mg/dL (8.5-10.1); Creatinine, Blood 0.93 mg/dL (0.60-1.20); Potassium, Blood 4.6 mmol/L (3.5-5.5)
[2022-05-05 10:42] LABS: Vancomycin, Trough 13.7 ug/mL (5.0-10.0)
--- NOTE | 2022-05-05 17:30 | NUR ---
SHIFT SUMMARY PT UP IN CHAIR SINCE JUNST PRIOR TO LUNCH. TOLERATED WELL UNTIL 1630 WHEN HIS GOUT PAIN TO ELBOWS INCREASED SUDDENLY AND CAUSED NAUSEA AND TO FEEL QUITE POORLY. ASSISTED TO BED AND REPORTED FEELING VERY WEAK WHICH HE REPORTED EARLIER TODAY WELL. WANTING TO SLEEP AND REST FOR AWHILE. CPAP PLACED AND CURRENTLY SLEEPING. CONTINUOUS PULSE OXIMETRY FUNCTIONING THROUGHOUT DAY WITH SATS IN MID TO HIGH 90'S. KEEPING O2 ON FOR COMFORT DUE TO SOB AT TIMES. RLE WEEPING IN 2-3 SPOTS AND HE STATED HE SCRATCHED A SPOT THIS AFTERNOON CAUSING IT TO BLEED WELL. DRESSINGS APPLIED FOR DRAINAGE AND PREVENT FURTHER BLEEDING. HEART RATE IN THE 90-110'S. STOLL REMOVED AND HAS VOIDED SINCE REMOVAL.
--- NOTE | 2022-05-05 22:23 | NUR ---
INCONT OF URINE IN BED, ASSISTED UP TO BATHROOM, URINATED ON FLOOR, VOICED HAD LASIX AND WAS UNABLE TO CONTROL IT. ASSISTED TO BATHROOM, PT SHOWERED. FLOOR CLEANED, BED LINEN CHANGED. CALL LIGHT IN REACH
--- NOTE | 2022-05-06 05:00 | NUR ---
KNIFE FINISHER SUMMARY INCONT OF URINE AT SHIFT COMMENCE, ASSISTED UP TO BATHROOM TO GET A SHOWER. LINEN CHANGED. WSA ASSISTED BACK TO BED. VOICED HAD LASIX AND VOICED FRUSTRATION RE INCONTINENCE. REQUESTED PAIN MEDS X 2 THIS SHIFT, OTHERWISE HAS BEEN RESTING QUIETLY WITH FEW INTERRUPTIONS. CALL LIGHT IN REACH. ISOLATION PRECAUTIONS MAINTAINED.
[2022-05-06 08:43] LABS: Bun/Creatinine Ratio 26.7 (12.0-20.0); Calcium, Blood 8.5 mg/dL (8.5-10.1); Creatinine, Blood 1.05 mg/dL (0.60-1.20); Potassium, Blood 4.3 mmol/L (3.5-5.5)
[2022-05-06] MEDS ORDERED: Prozac20 MG PO (14:57)
[2022-05-06] MEDS ORDERED: COLCHICINE0.6 MG PO (14:57)
[2022-05-06] MEDS ORDERED: XARELTO20 MG PO (14:58)
[2022-05-06] MEDS ORDERED: OXYC5 PO (15:05)
--- NOTE | 2022-05-06 18:03 | NUR ---
DISCHARGE INSTRUCTIONS COMPLETED AND DISCUSSED WITH PT. [facility] FA[facility]ED TO [facility]. [facility]
== END 2022-05-06 16:14 | disposition home health service (06) | DRG 871 ==
LOC: ER 20:20 → PCU 23:45 → MEDS 23:45 → PCU 04-25 04:59 → MEDS 04-29 17:31
PROVIDERS: Internal Medicine; Student in an Organized Health Care Education/Training Program; ADMIT Internal Medicine
DX: A41.9 Sepsis, unspecified organism (principal); G92.8 Other toxic encephalopathy; J18.9 Pneumonia, unspecified organism; J96.21 Acute and chronic respiratory failure with hypoxia; I50.32 Chronic diastolic (congestive) heart failure; I13.0 Hypertensive heart and chronic kidney disease with heart failure and stage 1 through stage 4 chronic kidney disease, or unspecified chronic kidney disease; E87.2 Acidosis; L03.115 Cellulitis of right lower limb; E66.2 Morbid (severe) obesity with alveolar hypoventilation; Z68.43 Body mass index [BMI] 50.0-59.9, adult; Z20.822 Contact with and (suspected) exposure to COVID-19; N18.2 Chronic kidney disease, stage 2 (mild); R65.20 Severe sepsis without septic shock; E78.5 Hyperlipidemia, unspecified; I27.20 Pulmonary hypertension, unspecified; R91.1 Solitary pulmonary nodule; I48.0 Paroxysmal atrial fibrillation; M10.9 Gout, unspecified; F32.A Depression, unspecified; I25.10 Atherosclerotic heart disease of native coronary artery without angina pectoris; I87.2 Venous insufficiency (chronic) (peripheral); Z96.643 Presence of artificial hip joint, bilateral; Z86.718 Personal history of other venous thrombosis and embolism; Z95.5 Presence of coronary angioplasty implant and graft; Z87.891 Personal history of nicotine dependence; Z79.01 Long term (current) use of anticoagulants; Z79.84 Long term (current) use of oral hypoglycemic drugs; Z79.899 Other long term (current) drug therapy
CPT/HCPCS: 0241U; 36415; 36600; 71045; 73701; 80048; 80053; 80069; 80202; 81001; 82550; 82803; 82947; 83605; 83735; 83880; 84145; 84484; 85025; 87040; 87086; 87449; 92610; 93005; 93010; 93971; 94640; 94660; 94760; 94762; 96365; 96375; 97110; 97116; 97116-CQ; 97162; 97166; 97530; 97530-CQ; 97535; 98960; 99285-25; A9270; J0456; J0690; J0696; J1650; J1940; J2405; J3370; J7040; J7050; J7060; J7120; J7512; Q9967

== ENCOUNTER 2022-05-08 22:39 | Observation (INO) | payer OTHER ==
[~2022-05-08] VITALS: Ht 182.9 cm; Wt 167.7 kg
[~2022-05-08 22:39] MED LIST changes: +COLCHICINE0.6 MG PO; +DESV50 PO; +OXYC5 PO
[2022-05-09 02:01] LABS: BASOPHILS ABSOLUTE AUTO 0.05 K/mm3 (0.00-0.23); BASOPHILS PERCENT AUTO 1 % (0-2); EOSINOPHILS ABSOLUTE AUTO 0.16 K/mm3 (0.00-0.68); EOSINOPHILS PERCENT AUTO 2 % (0-6); Hematocrit 38.6 % (37.0-53.0); Hemoglobin 12.5 g/dL (13.5-17.5); IMMATURE GRAN ABSOLUTE AUTO 0.17 K/mm3 (0.00-0.10); IMMATURE GRAN PERCENT AUTO 2 % (0-1); LYMPHOCYTES ABSOLUTE AUTO 1.11 K/mm3 (0.84-5.20); LYMPHOCYTES PERCENT AUTO 11 % (21-46); MONOCYTES ABSOLUTE AUTO 0.93 K/mm3 (0.16-1.47); MONOCYTES PERCENT AUTO 9 % (4-13); Mean Corpuscular HGB 29.6 pg (26.0-34.0); Mean Corpuscular HGB Conc 32.4 g/dL (31.5-36.5); Mean Corpuscular Volume 92 fL (80-100); Mean Platelet Volume 9.3 fL (9.1-12.4); NEUTROPHILS ABSOLUTE AUTO 7.65 K/mm3 (1.96-9.15); NEUTROPHILS PERCENT AUTO 76 % (41-73); Platelet Count 366 K/mm3 (150-400); RDW Standard Deviation 53.4 fL (35.1-46.3); Red Blood Cell Count 4.22 M/mm3 (4.30-5.90); White Blood Cell Count 10.07 K/mm3 (4.00-11.30)
[2022-05-09 02:19] LABS: Albumin, Blood 2.5 g/dL (3.4-5.0); Albumin/Globulin Ratio 0.5 (0.8-1.8); Bilirubin, Total 0.7 mg/dL (0.1-1.0); Bun/Creatinine Ratio 25.4 (12.0-20.0); Calcium, Blood 8.5 mg/dL (8.5-10.1); Creatinine, Blood 1.26 mg/dL (0.60-1.20); Globulin, Blood 5.3 g/dL (2.2-4.0); Potassium, Blood 4.8 mmol/L (3.5-5.5); Total Protein, Blood 7.8 g/dL (6.4-8.2)
--- NOTE | 2022-05-09 06:22 | NUR ---
SUMMARY PT ARRIVED TO ROOM IN NO DISTRESS FROM ER. PT DENIES PAIN OR SOB. PHOTO TAKEN OF RLE. NO OTHER ISSUES NOTED. CALL LIGHT IN REACH.
--- NOTE | 2022-05-09 20:19 | NUR ---
SHIFT SUMMARY: PT A/O X 4 STANDBY ASSIST DUE TO LINES. PT TOLERATING ANTIBIOTIC TX. REDNESS TO RLE REMAINS UNCHANGED. PT DID HAVE PAIN POST WORKING WITH PT, PAIN MEDICATION EFFECTIVE IN TREATING PAIN.
--- NOTE | 2022-05-10 05:09 | NUR ---
SHIFT SUMMARY ADMITTED FOR RLE CELLULITIS. FULL CODE. IV ANTIB RX ARE SCHEDULED. PAIN MEDICATION GIVEN THIS SHIFT. ADA DIET. ON RA. CESARS CHEMSTICKS. CPAP @ . STANDBY ASSIST TO BSC W/FWW. CONTACT PRECAUTIONS FOR MRSA IN WOUND. A&O X4. CONTINENT.
--- NOTE | 2022-05-10 16:03 | NUR ---
Pt is sitting on a chair and alert. Patient tells me abut his family unit complications and about his life goals and priorities. He shares about his personal struggles and the sonja that keeps him grounded and steady. I provide companionship, gentle counselor at law and encouragement. Pt responds well and shows signs of being uplifted and heard. I will continue to remain available to patient and family.
--- NOTE | 2022-05-10 18:47 | NUR ---
SHIFT SUMMARY: PT A/O X4 IND WITH WALKER. PLEASANT AND COOPERATIVE WITH CARE. PT DID WELL TODAY AMBULATING HERNANDEZ TO ELEVATOR 3 TIMES TODAY. PT DID REPORT INCREASED PAIN DESCRIBED THROBBING TO LOWER R LEG POST EXERCISED. PAIN MANAGED WITH CURRENT PAIN MEDICATIONS. PT IV INFILTRATED THIS EVENING AT 4 PM DOSE OF VANCO AND HE DID NOT RECEIVE FULL DOSE. ATTEMPTED TO START IV 4X WITH NO SUCCESS. IT WAS RECOMMENDED TO GET POWER GLIDE. AWAITING TRAINED RN TO DO PROCEDURE. PT RESTING IN BED AT SHIFT END WITH EYES SHUT, CPAP ON. WILL REPORT TO NOC RN CONCERNS.
--- NOTE | 2022-05-11 04:38 | NUR ---
SHIFT SUMMARY ADMITTED FOR CELLULITIS OF RIGHT LEG. FULL CODE. CONTACT PRECAUTIONS FOR MRSA IN WOUND. IV ACCESS WAS LOST ON PREVIOUS SHIFT. NEW IV ACCESS THIS SHIFT. IV VANCO & VANCO TROUGHS ARE NOW RESCHEDULED THROUGH PHARMACY. HE IS INDEPENDENT - BRP. ADA DIET. ACHS CHEMSTICKS. WOUND AND BLOOD CULTURES PERFORMED, AWAITING RESULTS. CPAP @ . A&O X4.
[2022-05-11 13:06] LABS: Hematocrit 35.3 % (37.0-53.0); Hemoglobin 11.5 g/dL (13.5-17.5); Mean Corpuscular HGB 29.8 pg (26.0-34.0); Mean Corpuscular HGB Conc 32.6 g/dL (31.5-36.5); Mean Corpuscular Volume 92 fL (80-100); Mean Platelet Volume 8.8 fL (9.1-12.4); Platelet Count 326 K/mm3 (150-400); RDW Coefficient Variation 16.1 % (11.7-14.2); RDW Standard Deviation 53.6 fL (35.1-46.3); Red Blood Cell Count 3.86 M/mm3 (4.30-5.90)
[2022-05-11 13:26] LABS: Bun/Creatinine Ratio 27.2 (12.0-20.0); Calcium, Blood 8.6 mg/dL (8.5-10.1); Creatinine, Blood 1.25 mg/dL (0.60-1.20); Potassium, Blood 4.5 mmol/L (3.5-5.5)
[2022-05-11 13:48] LABS: Vancomycin, Trough 21.6 ug/mL (5.0-10.0)
--- NOTE | 2022-05-11 17:12 | NUR ---
DAYSHIFT SUMMARY Patient doing well today, no acute changes to patient status. Powerglide placed in right forearm, for outpatient ABX infusions. Patient worked with therapy, and ambulated the halls indepedently. CBGs WNL, no SSI needed. Vitals stable.
--- NOTE | 2022-05-12 04:19 | NUR ---
SHIFT SUMMARY ADMITTED FOR RT LEG CELLULITIS. FULL CODE. CONTACT PRECAUTIONS FOR MRSA IN WOUND. PLAN IS FOR DC HOME, OUTPT IV ANTIB RX. POWERGLIDE IV IN RT FOREARM. ADA DIET. ACHS CHEMSTICKS. HE IS INDEPENDENT IN ROOM. PT REPORTS SCHEDULED OINTMENT IS CAUSING NOTICEABLE IMPROVEMENT. AWAITING WOUND AND BLOOD CULTURES. CPAP AT HS
[2022-05-12] MEDS ORDERED: Triamcinolone A15 G3 TOP (11:18)
[2022-05-12] MEDS ORDERED: VISBIOME 112.51 EACH PO (11:18)
[2022-05-12] MEDS ORDERED: VANCOMYCIN HCL1 G1 IV (11:20)
--- NOTE | 2022-05-12 15:44 | NUR ---
PT B/P UP. TALKED TO HIM. STATES PAIN UP IN LEG SOME. ALSO, WORRIED ABOUT D/CHG. NOT GETTING APPT SETUP. GOT HIM A PAIN PILL.
--- NOTE | 2022-05-12 16:31 | NUR ---
UPDATED DR MOORE, WE ARE STILL UNABLE TO GET ATC APPT. BP BP UP. LIKELY PAIN, JUST MEDICATED AND STRESS OF ABOVE.
--- NOTE | 2022-05-12 18:31 | NUR ---
PT WAS TO D/C TODAY AFTER YRN AT 1400. DELAYS R/T ATC SCHEDULING AND INSURANCE PAYING. WILL BE HOLDING UNTIL TOMORROW. DR MOORE NOTIFIED. PT SOME CONCERNED ABOUT THIS AND SOME WITH PAIN, BP ELEVATED. TALKED WITH HIM SOME AND GAVE PAIN MED. BP EXPECTED TO LOWER. NOTIFIED. WILL CONTINUE TO MONITOR. NO OTHER CONCERNS NOTED. BED IN LOW POSITION, CALL LITE IN REACH, CALLS APPROP.
--- NOTE | 2022-05-13 06:50 | NUR ---
SHIFT SUMMARY: VSS, PATIENT REPORTS NO PAIN. NO ACUTE CHANGES.
--- NOTE | 2022-05-13 10:12 | NUR ---
Patient is sitting on a chair and resting. He easily awakens to the sound of his name. Patient tells me about his discouragement of not being able to d/c as soon as he had hoped and that being in the hospital for a lengthy stay begins to affect his mood. We explore avenues of inspiration and tara. Pt refers to his Chrissy, acts of kindness toward others and being outdoors as places of uplift for his spirit. I provide empathic listening, gentle nutrition counselor and prayer. Patient responds well and shows signs of having his mood elevated. I will continue to remain available.
[2022-05-13 13:22] LABS: Creatinine, Blood 1.22 mg/dL (0.60-1.20); Vancomycin, Trough 19.6 ug/mL (5.0-10.0)
--- NOTE | 2022-05-13 15:11 | NUR ---
DISCHARGE REVIEWED WITH PT. PT VERBALIZED UNDERSTANDING MEDS AND INST. PT TO CALL FOR APT. MEDS FAXED TO [facility]. PT KEEPING IV FOR OUTPATIENT ABX. PT EDUCATED ABOUT KEEPING DRY. NO TELE. PT RECEIVING ABX AND TO D/C WHEN RIDE HERE.
--- NOTE | 2022-05-13 16:23 | NUR ---
pt wheeled to door by myself at 1618.
== END 2022-05-13 17:35 ==
LOC: ER 22:39 → MEDS 22:40
PROVIDERS: Internal Medicine; Physician Assistant; ADMIT Internal Medicine
DX: L03.115 Cellulitis of right lower limb (principal); I87.2 Venous insufficiency (chronic) (peripheral); N17.9 Acute kidney failure, unspecified; I11.0 Hypertensive heart disease with heart failure; I50.32 Chronic diastolic (congestive) heart failure; I48.91 Unspecified atrial fibrillation; E11.9 Type 2 diabetes mellitus without complications; E78.5 Hyperlipidemia, unspecified; I25.10 Atherosclerotic heart disease of native coronary artery without angina pectoris; M1A.9XX0 Chronic gout, unspecified, without tophus (tophi); E66.01 Morbid (severe) obesity due to excess calories; Z86.718 Personal history of other venous thrombosis and embolism; Z79.01 Long term (current) use of anticoagulants; Z87.891 Personal history of nicotine dependence; Z68.41 Body mass index [BMI] 40.0-44.9, adult; I27.20 Pulmonary hypertension, unspecified; I35.0 Nonrheumatic aortic (valve) stenosis
CPT/HCPCS: 36415; 71046; 80048; 80053; 80202; 82565; 82947; 85025; 85027; 87040; 87070; 87205; 93005; 93010; 93971; 94660; 94760; 96365; 96366; 96367; 96374; 96375; 96376; 97110; 97116; 97116-CQ; 97162; 97166; 97530-CQ; 97535; 99285-25; A9270; G0378; J0690; J1170; J2405; J3370; J7030; J7060

== ENCOUNTER 2022-05-15 00:50 | Day surgery (SDC) | payer OTHER ==
[~2022-05-15 00:50] MED LIST changes: +Triamcinolone A15 G3 TOP; +VANCOMYCIN HCL1 G1 IV; +VISBIOME 112.51 EACH PO
== END 2022-05-15 16:15 | disposition home or self-care (01) ==
LOC: ATC 00:50
DX: L03.115 Cellulitis of right lower limb (principal); E66.01 Morbid (severe) obesity due to excess calories; E11.9 Type 2 diabetes mellitus without complications; I11.0 Hypertensive heart disease with heart failure; I50.32 Chronic diastolic (congestive) heart failure; Z87.891 Personal history of nicotine dependence
CPT/HCPCS: 96365; 96366; J3370; J7060

== ENCOUNTER 2022-05-16 05:47 | Day surgery (SDC) | payer OTHER ==
[2022-05-16 15:26] LABS: Creatinine, Blood 1.37 mg/dL (0.60-1.20)
== END 2022-05-16 17:40 | disposition home or self-care (01) ==
LOC: ATC 05:47
PROVIDERS: Internal Medicine
DX: L03.115 Cellulitis of right lower limb (principal); I11.0 Hypertensive heart disease with heart failure; I50.32 Chronic diastolic (congestive) heart failure; E11.9 Type 2 diabetes mellitus without complications; I25.10 Atherosclerotic heart disease of native coronary artery without angina pectoris; I48.91 Unspecified atrial fibrillation; E66.01 Morbid (severe) obesity due to excess calories; Z87.891 Personal history of nicotine dependence
CPT/HCPCS: 80202; 82565; 96365; 96366; J3370; J7060

== ENCOUNTER 2022-05-19 01:24 | Day surgery (SDC) | payer OTHER | END 2022-05-19 15:40 | disposition home or self-care (01) | LOC: ATC 01:24 | DX: L03.115 Cellulitis of right lower limb (principal); I11.0 Hypertensive heart disease with heart failure; I50.32 Chronic diastolic (congestive) heart failure; I48.20 Chronic atrial fibrillation, unspecified; Z79.01 Long term (current) use of anticoagulants; E11.9 Type 2 diabetes mellitus without complications; E78.5 Hyperlipidemia, unspecified; I25.10 Atherosclerotic heart disease of native coronary artery without angina pectoris; M10.9 Gout, unspecified; Z87.891 Personal history of nicotine dependence; Z79.84 Long term (current) use of oral hypoglycemic drugs; Z86.718 Personal history of other venous thrombosis and embolism; E66.01 Morbid (severe) obesity due to excess calories | CPT/HCPCS: 96365; J3370; J7060 ==

== ENCOUNTER 2022-05-19 15:54 | Inpatient (IN) | payer OTHER ==
[~2022-05-19] VITALS: Ht 182.9 cm; Wt 148.5 kg
[2022-05-19 16:20] LABS: BASOPHILS ABSOLUTE AUTO 0.02 K/mm3 (0.00-0.23); BASOPHILS PERCENT AUTO 0 % (0-2); EOSINOPHILS ABSOLUTE AUTO 0.33 K/mm3 (0.00-0.68); EOSINOPHILS PERCENT AUTO 4 % (0-6); Hematocrit 35.7 % (37.0-53.0); Hemoglobin 11.5 g/dL (13.5-17.5); IMMATURE GRAN ABSOLUTE AUTO 0.03 K/mm3 (0.00-0.10); IMMATURE GRAN PERCENT AUTO 0 % (0-1); LYMPHOCYTES ABSOLUTE AUTO 1.12 K/mm3 (0.84-5.20); LYMPHOCYTES PERCENT AUTO 13 % (21-46); MONOCYTES ABSOLUTE AUTO 0.68 K/mm3 (0.16-1.47); MONOCYTES PERCENT AUTO 8 % (4-13); Mean Corpuscular HGB 29.5 pg (26.0-34.0); Mean Corpuscular HGB Conc 32.2 g/dL (31.5-36.5); Mean Corpuscular Volume 92 fL (80-100); Mean Platelet Volume 8.7 fL (9.1-12.4); NEUTROPHILS PERCENT AUTO 74 % (41-73); Platelet Count 272 K/mm3 (150-400); RDW Coefficient Variation 16.9 % (11.7-14.2); RDW Standard Deviation 56.1 fL (35.1-46.3); White Blood Cell Count 8.38 K/mm3 (4.00-11.30)
[2022-05-19 16:39] LABS: C-REACTIVE PROTEIN, EXT RANGE 6.27 mg/dL (0.000-0.300)
[2022-05-19 16:42] LABS: Albumin, Blood 2.9 g/dL (3.4-5.0); Albumin/Globulin Ratio 0.6 (0.8-1.8); Bilirubin, Total 1.1 mg/dL (0.1-1.0); Bun/Creatinine Ratio 19.4 (12.0-20.0); Calcium, Blood 8.7 mg/dL (8.5-10.1); Creatinine, Blood 1.55 mg/dL (0.60-1.20); Globulin, Blood 5.1 g/dL (2.2-4.0); Potassium, Blood 4.1 mmol/L (3.5-5.5)
[2022-05-20 04:50] LABS: BASOPHILS ABSOLUTE AUTO 0.02 K/mm3 (0.00-0.23); BASOPHILS PERCENT AUTO 0 % (0-2); EOSINOPHILS ABSOLUTE AUTO 0.38 K/mm3 (0.00-0.68); EOSINOPHILS PERCENT AUTO 6 % (0-6); Hemoglobin 9.8 g/dL (13.5-17.5); IMMATURE GRAN ABSOLUTE AUTO 0.03 K/mm3 (0.00-0.10); IMMATURE GRAN PERCENT AUTO 0 % (0-1); LYMPHOCYTES ABSOLUTE AUTO 0.97 K/mm3 (0.84-5.20); LYMPHOCYTES PERCENT AUTO 14 % (21-46); MONOCYTES PERCENT AUTO 10 % (4-13); Mean Corpuscular HGB 29.3 pg (26.0-34.0); Mean Corpuscular HGB Conc 31.6 g/dL (31.5-36.5); Mean Corpuscular Volume 93 fL (80-100); NEUTROPHILS ABSOLUTE AUTO 4.63 K/mm3 (1.96-9.15); NEUTROPHILS PERCENT AUTO 69 % (41-73); Platelet Count 218 K/mm3 (150-400); RDW Coefficient Variation 16.8 % (11.7-14.2); RDW Standard Deviation 56.1 fL (35.1-46.3); Red Blood Cell Count 3.35 M/mm3 (4.30-5.90); White Blood Cell Count 6.73 K/mm3 (4.00-11.30)
[2022-05-20 05:07] LABS: Bun/Creatinine Ratio 19.3 (12.0-20.0); Calcium, Blood 7.1 mg/dL (8.5-10.1); Creatinine, Blood 1.4 mg/dL (0.60-1.20); Potassium, Blood 3.7 mmol/L (3.5-5.5)
--- NOTE | 2022-05-20 05:13 | NUR ---
SHIFT SUMMARY PT NEW ED ADMIT THIS EVENING. [facility]PATIENT THERAPY. RLE RED AND SWOLLEN, SMALL BLISTERS ON THE SKIN. OPEN TO AIR. NO DRAINAGE AT THIS TIME. ENCOURAGED ELEVATION. PICTURES TAKEN AND PLACED IN THE CHART AND REDNESS MARKED WITH SKIN MARKER. CPAP ON WHILE SLEEPING. PT SLEPT WELL MUCH OF THE NIGHT. PAIN REPORTED /10 RELATED TO RLE. MEDICATED PER EMAR. POWERGLIDE PRESENT TO RFA FROM PREVIOUS ADMISSION AND OUTPATIENT ANTIBIOTIC THERAPY. FLUSHED AND ROBERTO BLOOD EASILY. VITAL SIGNS REMAINED STABLE. PT SLEEPING AT THIS TIME. WILL CONTINUE TO MONITOR.
--- NOTE | 2022-05-20 16:49 | NUR ---
SHIFT SUMMARY PATIENT MEDICATED FOR PAIN X1. PATIENT DENIES NAUSEA AND SHORTNESS OF BREATH. PATIENT IS IND IN ROOM. PATIENT IS EATING AND DRINKING WELL. PATIENT LIKES TO AMBULATE IN HALLWAY. PATIENT USES A CANE. PATIENT UPDATED REQUESTED BY PATIENT. POWERGLIDE DRESSING CHANGED. PATIENT USES CPAP AT NIGHT. PATIENT IS VERY PLEASANT AND COOPERATIVE WITH CARE.
--- NOTE | 2022-05-20 19:29 | NUR ---
SHIFT SUMMARY THIS NURSE ASSUMED CARE OF PATIENT AT ABOUT 1650. NO CHANGES FOR THE REST OF THE SHIFT. PT ATE 100% OF DINNER AND PUT SELF BACK TO BED AFTER DINNER. DENIES PAIN, SOB AND NV. BED IN LOW POSITION, CALL LIGHT WITHIN REACH. REPORT GIVEN TO PILLOW AGENT NURSE WHO WILL ASSUME CARE AT THIS TIME.
--- NOTE | 2022-05-21 07:27 | NUR ---
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 PT IS FULL CODE. INDEPENDENT IN ROOM. DID HAVE SOME BRADYCARDIA TO THE HIGH 50S WHILE SLEEPING, SEEN ON CONTINUOUS PULSE OX - NO SYMPTOMS. GIVEN IV ABX. MEDICATED X2 FOR WORSENING PAIN. PT AMBULATING HALLWAYS INDEPENDENTLY. ALERT AND ORIENTED X4, PLEASANT. RLE IS VERY SWOLLEN AND RED. PT DOES NOT SEE IMPROVEMENT.
[2022-05-21 08:31] LABS: Hemoglobin 11.8 g/dL (13.5-17.5); Mean Corpuscular HGB 28.9 pg (26.0-34.0); Mean Corpuscular HGB Conc 31.1 g/dL (31.5-36.5); Mean Corpuscular Volume 93 fL (80-100); Mean Platelet Volume 8.7 fL (9.1-12.4); Platelet Count 209 K/mm3 (150-400); RDW Coefficient Variation 16.4 % (11.7-14.2); Red Blood Cell Count 4.08 M/mm3 (4.30-5.90); White Blood Cell Count 6.41 K/mm3 (4.00-11.30)
[2022-05-21 08:50] LABS: Albumin, Blood 2.7 g/dL (3.4-5.0); Albumin/Globulin Ratio 0.5 (0.8-1.8); Bilirubin, Total 0.9 mg/dL (0.1-1.0); Bun/Creatinine Ratio 20.5 (12.0-20.0); Calcium, Blood 8.6 mg/dL (8.5-10.1); Creatinine, Blood 1.46 mg/dL (0.60-1.20); Globulin, Blood 5.1 g/dL (2.2-4.0); Potassium, Blood 4.5 mmol/L (3.5-5.5); Total Protein, Blood 7.8 g/dL (6.4-8.2)
--- NOTE | 2022-05-21 18:34 | NUR ---
SHIFT SUMMARY; PATIENT AMBULATES IN HALLWAY TODAY X 2. REDNESS NOTED TO INCREASE IN HIS RIGHT LEG AFTER WALKING RETURNS TO BASELINE AFTER HE IS BACK IN ROOM AND ELEVATES HIS LEGS IN RECLINER. PATIENT REMAINS IN MRSA PRECAUTIONS. HIS IV IS SALINE LOCKED ON HIS RIGHT FOREARM. HE IS AO X 4. NO COVERAGE DURING REQUIRED FOR ELEVATED CHEM BG. ALL BELOW 150 DURING DAY. PATIENT REQUESTED PAIN MEDICATION X 1 TODAY. HE IS VERY CONCERNED ABOUT INFECTIONS AND GERMS. EDUCATION IS PROVIDED TO PATIENT AND HE IS VERY RECEPTIVE. HIS VITAL SIGNS ARE ALL WNL. GFR IS NOW 53 DOWN FROM 56. BUN IS 30 UP FROM 27. PATIENT HAS IV ANTIBIOTICS ORDERED. NO DC PLANS AT THIS TIME. WILL REMAIN AVAILABL FOR THIS PAITENT UNTIIL HAND OFF AND SHIFT CHANGE
[2022-05-22 05:28] LABS: Hematocrit 34.1 % (37.0-53.0); Mean Corpuscular HGB 29.1 pg (26.0-34.0); Mean Corpuscular HGB Conc 32.3 g/dL (31.5-36.5); Mean Corpuscular Volume 90 fL (80-100); Mean Platelet Volume 8.8 fL (9.1-12.4); Platelet Count 206 K/mm3 (150-400); RDW Coefficient Variation 16.3 % (11.7-14.2); RDW Standard Deviation 53.4 fL (35.1-46.3); Red Blood Cell Count 3.78 M/mm3 (4.30-5.90); White Blood Cell Count 5.88 K/mm3 (4.00-11.30)
--- NOTE | 2022-05-22 06:48 | NUR ---
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 HE IS FULL CODE. CONTINUING IV ABX THERAPY. PT REFUSED SILVADENE CREAM LAST NOC, FEELING THAT HE WANTS TO TAKE A SHOWER AND CLEAN BEFORE MORE CREAM AND JUST WANTED TO LEAVE IT NEDA LAST NIGHT. HE REPORTED 3/10 PAIN MAX TO THE RLE - DID NOT NEED ANY PAIN MEDICATION. THE PATIENT DID DROP INTO THE LOW 80S ON HIS CPAP LAST NIGHT AND NEEDED INCREASED BLEED IN TO 6L FROM 2L. HE REPORTS FEELING INCREASINGLY TIRED THIS MORNING.
[2022-05-22 06:50] LABS: Albumin, Blood 2.5 g/dL (3.4-5.0); Albumin/Globulin Ratio 0.5 (0.8-1.8); Bun/Creatinine Ratio 23.1 (12.0-20.0); Calcium, Blood 8.3 mg/dL (8.5-10.1); Creatinine, Blood 1.43 mg/dL (0.60-1.20); Globulin, Blood 4.8 g/dL (2.2-4.0); Potassium, Blood 4.2 mmol/L (3.5-5.5); Total Protein, Blood 7.3 g/dL (6.4-8.2)
--- NOTE | 2022-05-22 19:14 | NUR ---
PATIENTS HEART RATE INCREASED TO 160, PATIENT FELT SYMPTOMATIC, DIZZY AND HEART FLUTTERS, EKG DONE, AFIB WITH RVR, TELE STARTED, IV METOPROLOL DOSE GIVEN, HEART RATE NOW 80-120S, DENIES CHEST PAIN, CPAP ON, 6L BLEED IN, WILL RELAY TO PM RN
--- NOTE | 2022-05-22 23:08 | NUR ---
PATIENT ARRIVED TO PCU 12 FROM 356 AT 2215. PATIENT ABLE TO TRANSFER SELF FROM W/C TO CHAIR WITH MIN ASSIST. IV DILTIAZEM STARTED AT 5 MG/HR DUE TO AFIB WITH RVR AT RATE 140-150. RT CALLED AND PATIENT PLACED ON CPAP WITH 4L BLEED IN. AND PATIENT NOW RESTING IN BED.
[2022-05-23 05:14] LABS: Hematocrit 36.9 % (37.0-53.0); Hemoglobin 11.7 g/dL (13.5-17.5); Mean Corpuscular HGB 28.5 pg (26.0-34.0); Mean Corpuscular HGB Conc 31.7 g/dL (31.5-36.5); Mean Corpuscular Volume 90 fL (80-100); Mean Platelet Volume 8.8 fL (9.1-12.4); Platelet Count 232 K/mm3 (150-400); RDW Coefficient Variation 16.2 % (11.7-14.2); RDW Standard Deviation 53.5 fL (35.1-46.3); White Blood Cell Count 6.47 K/mm3 (4.00-11.30)
[2022-05-23 05:29] LABS: Albumin, Blood 2.5 g/dL (3.4-5.0); Albumin/Globulin Ratio 0.5 (0.8-1.8); Bilirubin, Total 0.9 mg/dL (0.1-1.0); Calcium, Blood 8.5 mg/dL (8.5-10.1); Creatinine, Blood 1.5 mg/dL (0.60-1.20); Globulin, Blood 4.8 g/dL (2.2-4.0); Potassium, Blood 4.2 mmol/L (3.5-5.5); Total Protein, Blood 7.3 g/dL (6.4-8.2)
--- NOTE | 2022-05-23 05:31 | NUR ---
CARDIAC: LATE ENTRY FOR 05/22/22 2200 AT 1935 HEART RATE IS SUSTAINING IN THE 130'S, PATIENT IS IS BED WITH CPAP ON. PATIENT FEELS DRAINED AND WEAK. WAS GIVE IV LOPRESSOR AT 1811 WITH POOR EFFECT. RENATO VO WAS NOTIFIED AND ORDER TO GIVE LOPRESSOR Q 2 HOURS PRN FOR HEART RATE OVER 100, GIVE FIRST DOSE NOW WITH SCHEDULE METOPROLOL. MEDS WERE GIVE WITH POOR EFFECT. PATIENT WAS ABLE TO EAT 50% OF DINNER BUT CONTINUES TO BE SYMPTOMATIC. RENATO VO IS CALLED AGAIN. ORDER TO GIVE ANOTHER DOSE OF IV LOPRESSOR 5MG AND TRANSFER PATIENT TO PCU. LOPRESSOR WAS GIVEN, REPORT WAS CALLED TO ANN MARIE CROW IN PCU AND PATIENT WAS TRANSFERED.
--- NOTE | 2022-05-23 05:48 | NUR ---
SUMMARY PATIENT SLEEPING WITH CPAP IN PLACE T/O NIGHT. POSITIONING SELF IN BED FOR COMFORT. PATIENT UP TO BSC TO VOID TWICE WITH MIN ASSIST. AFIB CONTINUES WITH RATE UP TO 120'S WITH ACTIVITY. WHILE SLEEPING RATE LOW 100'S. CARDIZEM DRIP CONTINUES AT 5 MG/HR.
--- NOTE | 2022-05-23 09:01 | NUR ---
ASSUMED CARE PT. ALERT AND ORIENTED THIS AM. SITTING UP IN BEDSIDE CHAIR AT THIS TIME EATING BREAKFAST. PT. DENIES ANY CHEST PAIN OR PRESSURE, DENIES PAIN THIS AM. PT. LEG ELEVATED IN CHAIR. VSS THIS AM. HR 90S. CARDIZEM GTT AT 5MG/HR AT THIS TIME. CALL LIGHT IN REACH. ALL NEEDS MET AT THIS TIME.
--- NOTE | 2022-05-23 10:05 | NUR ---
PT UP TO AMBULATE AROUND UNIT. DID BECOME SOB WITH EXCERTION. BACK TO BEDSIDE CHAIR. HR UP TO 110S WHEN AMBULATING
--- NOTE | 2022-05-23 11:14 | NUR ---
PT ASSISTED UP TO TOILET IN ROOM. STEADY ON FEET. PT. BACK TO CHAIR SET UP WITH WATER AND TOWLS FOR SPONGE BATH, REFUSING ASSISTANCE WITH THIS. ASSISTED PT TO PUT ON SOME CLEAN CLOTHES. WITH MINIMAL ACTIVITY PT DOES HAVE DYSPNEA ON EXCERTION AND HR GOES UP TO LOW 100S-120S. CARDIZEM GTT REMAINS AT 5MG/HR. CALL LIGHT IN REACH. PT. INSTRUCTED TO CALL PRIOR TO GETTING UP FOR SAFETY.
--- NOTE | 2022-05-23 13:11 | NUR ---
DR. ARCHULETA IN TO SEE PT CONSULT PLACED FOR DR. BONILLA. PAGED AT [phone].
--- NOTE | 2022-05-23 13:46 | NUR ---
DR. BONILLA IN TO SEE PT CARDIZEM GTT STOPPED AT THIS TIME PER DR. BONILLA.
--- NOTE | 2022-05-23 16:18 | NUR ---
ROUNDED ON PT, RESTING COMFORTABLY IN BED ON CPAP. VSS.
--- NOTE | 2022-05-23 17:27 | NUR ---
SHIFT SUMMARY PT UP IN BEDSIDE CHAIR T/O DAY. HE DID AMBULATE AROUND THE UNIT BUT WAS VERY TIRED AFTER WITH SOME DYSPNEA WITH EXCERTION. CARDIZEM GTT STOPPED TODAY PER DR. BONILLA. PT REMAINS ON RA. VSS AT THIS TIME. ALL NEEDS MET AT THIS TIME, REPORT TO ONCBRIAN CROW
--- NOTE | 2022-05-24 06:03 | NUR ---
SHIFT SUMMARY PATIENT ALERT AND ORIENTED x4, ABLE TO MAKE NEEDS KNOWN TO STAFF, USES CALL LIGHT APPROPRIATELY. VSS. PATIENT ON RA WHILE AWAKE, CPAP WHILE ASLEEP. O2 SAT >90%. PATIENT AMBULATING IN THE ROOM INDEPENDENTLY. NO COMPLAINTS OF PAIN, CHEST PAIN, OR SOB. NO CHANGES TO RIGHT LEG CELLULITIS, NO SIGNS OF WEEPING. NO OTHER SIGNIFICANT CHANGES THIS SHIFT. WILL REPORT TO DAY SHIFT RN.
--- NOTE | 2022-05-24 08:31 | NUR ---
ASSUMED CARE OF PT THIS AM PT. ALERT AND ORIENTED. INDEPENDENT UP TO BEDSIDE CHAIR FOR BREAKFAST. PT. DENIES PAIN THIS AM, REPORTS GETTING A GOOD NIGHT SLEEP LAST NOC. PT. EAGER TO GO HOME. REMAINS IN AFIB, HR 90S- LOW 100S. PT. BP WNL. ON RA. SALINE LOCKED. VSS THIS AM, CALL LIGHT IN REACH. ENCOURAGED PT TO CALL FOR ASSSITANCE MOVING THINGS IN ROOM TO PREVENT FALLS. PT. VERBALIZED UNDERSTANDING.
--- NOTE | 2022-05-24 10:30 | NUR ---
PT UP TO SHOWER. VSS.
--- NOTE | 2022-05-24 13:11 | NUR ---
DR. BORJAS IN TO SEE PT TRANSFER TO MEDICAL FLOOR ORDERS PLACED. PT. WALKED DOWN THE HALLWAY AND THEN WAS ASSISTED INTO BED. VSS AT THIS TIME.
--- NOTE | 2022-05-24 17:13 | NUR ---
SHIFT SUMMARY PT. REMAINS ALERT AND ORIENTED, INDEPENDENT IN ROOM. UP FREQUENTLY. VSS T/O SHIFT. RIGHT LEG REMAINS UNCHANGED FROM PREVIOUS ASSESSMENT. PT CONTINUES TO DENY PAIN/ DISCOMFORT. VSS AT THIS TIME, CALL LIGHT IN REACH, ALL NEEDS MET AT THIS VERNA. REPORT TO ASHLYN CROW
--- NOTE | 2022-05-25 06:00 | NUR ---
SHIFT SUMMARY ASSUMED CARE OF PT AT 1900. PT IS A/OX4. HEART SOUNDS REGULAR. PT CONVERTED TO SINUS AT 1700 THIS EVENING. LUNG SOUNDS CLEAR. PT WORE CPAP T/O THE NIGHT. PT WAS INDEPENDENT TO BATHROOM. R LEG RED AND SWOLLEN, BUT PT STATES ITS GETTING BETTER. NO ACUTE EVENTS DURING THE NIGHT.
--- NOTE | 2022-05-25 15:05 | NUR ---
Spiritual care visit conducted. Pt is on the phone but is welcoming of prayer. Pt also expresses gratitude for the temple inspirational reading materials I gave him the day prior. I notice an elevation in pt's mood. I will continue to remain available to patient and family.
--- NOTE | 2022-05-25 17:46 | NUR ---
PT SUMMARY: NO ACUTE CHANGE FOR THE SHIFT, PT REMAINED ALERT AND ORIENTED, PLEASANT AND COOPERATIVE, VITALS SIGNS REMAINED STABLE. HRR REMAINED SR ALL SHIFT RATE 60-80'S. PT HAS BEEN WALKING AROUND THE UNIT VIA CANE MULTIPLE TIMES TODAY. PT HAS BEEN INDEPENDENT IN THE ROOM. PLAN TO FINISH IV ABO COURSE AND DISCHARGE TOMORROW, HEALTH RECORD TECHNICIAN HAD DISCUSSION WITH THE PT TODAY FOR DISCHARGE PLAN. PT DENIES ANY KIND OF PAIN, GOOD APPETITE. USES CPAP WHEN SLEEPING. RLE STILL EDEMATOUS D/T CELLULITIS. NO OTHER ISSUES REPORTED, ABLE TO MAKE NEEDS KNOWN, WILL REPORT TO ONCOMING SHIFT
--- NOTE | 2022-05-26 05:13 | NUR ---
SHIFT SUMMARY ASSUMED CARE OF PT AT 1900. PT IS A/OX4. HEART SOUNDS REGULAR, LUNG SOUNDS CLEAR. PT WORE CPAP T/O THE NIGHT. PT ONLY COMPLAINT TONIGHT IS THAT HE IS HAVING LOOSE STOOLS. HOSPITALIST NOTIFIED AND ORDERED FOR STOOL SAMPLE. PT ONLY HAD ONE BM DURING THE NIGHT, BUT STAFF COULDNT COLLECT BECAUSE PT DID NOT TELL STAFF. PT SLEPT T/O THE NIGHT.
[2022-05-26 07:49] LABS: C DIFFICILE DNA NEGATIVE (Negative)
--- NOTE | 2022-05-26 11:20 | NUR ---
Spiritual care visit conducted. I spend over 45 mins with pt as he explains about his Mormonism belief system and what it means to him and about the people he is feels compelled by mercy to serve and provide for. He shares about his greatest desire to love God and love people and share the needs to follow the commands of the Bible and describe the furture events that are unfolding before us. He talks about his concerns as he will d/c today. I provide therapeutic listening, gentle encouragement and prayer. Pt responds well and shows signs of increased peace.
[2022-05-26] MEDS ORDERED: LISI5 PO (11:35)
[2022-05-26] MEDS ORDERED: METO100ER PO (11:36)
[2022-05-26] MEDS ORDERED: SOAANZ40 M1 PO (11:37)
== END 2022-05-26 13:15 | disposition home or self-care (01) | DRG 603 ==
LOC: ER 15:54 → MEDS 21:29 → PCU 05-20 12:17 → MEDS 05-20 12:17 → PCU 05-22 22:08
PROVIDERS: Family Medicine; Internal Medicine; Physician Assistant; ADMIT Internal Medicine
DX: L03.115 Cellulitis of right lower limb (principal); I50.32 Chronic diastolic (congestive) heart failure; N17.9 Acute kidney failure, unspecified; Z68.42 Body mass index [BMI] 45.0-49.9, adult; I48.91 Unspecified atrial fibrillation; E11.9 Type 2 diabetes mellitus without complications; E66.01 Morbid (severe) obesity due to excess calories; G47.33 Obstructive sleep apnea (adult) (pediatric); I11.0 Hypertensive heart disease with heart failure; I25.10 Atherosclerotic heart disease of native coronary artery without angina pectoris; I25.2 Old myocardial infarction; Z95.5 Presence of coronary angioplasty implant and graft; Z98.890 Other specified postprocedural states; Z96.649 Presence of unspecified artificial hip joint; Z87.891 Personal history of nicotine dependence; Z79.899 Other long term (current) drug therapy; D64.9 Anemia, unspecified; M10.9 Gout, unspecified; F32.A Depression, unspecified; J44.9 Chronic obstructive pulmonary disease, unspecified; I87.2 Venous insufficiency (chronic) (peripheral)
CPT/HCPCS: 36415; 73701; 80048; 80053; 82947; 83880; 85025; 85027; 86140; 87493; 93005; 93010; 94640; 94660; 94664; 94760; 94762; 96365; 96366; 96367; 99284-25; A9270; G0378; J0878; J2185; J7040; Q9967

== ENCOUNTER 2022-07-03 12:27 | Emergency (ER) | payer OTHER ==
[~2022-07-03] VITALS: Ht 182.9 cm; Wt 145.2 kg
[~2022-07-03 12:27] MED LIST changes: +LISI5 PO; +SOAANZ40 M1 PO
[2022-07-03] MEDS ORDERED: CYCL10 PO (15:30)
== END 2022-07-03 15:40 | disposition home or self-care (01) ==
LOC: ER 12:27
DX: S09.90XA Unspecified injury of head, initial encounter (principal); I50.9 Heart failure, unspecified; W18.09XA Striking against other object with subsequent fall, initial encounter; Z79.899 Other long term (current) drug therapy; Z87.891 Personal history of nicotine dependence
CPT/HCPCS: 70450; 72125; 90714

== ENCOUNTER 2022-10-23 15:07 | Emergency (ER) | payer OTHER ==
[~2022-10-23] VITALS: Ht 167.6 cm; Wt 140.6 kg
[~2022-10-23 15:07] MED LIST changes: +CYCL10 PO
[2022-10-23] MEDS ORDERED: Norco 5-325 Ta1 EACH PO (16:41)
== END 2022-10-23 17:30 | disposition home or self-care (01) ==
LOC: ER 15:07
DX: S82.65XA Nondisplaced fracture of lateral malleolus of left fibula, initial encounter for closed fracture (principal); S83.92XA Sprain of unspecified site of left knee, initial encounter; S40.011A Contusion of right shoulder, initial encounter; I50.9 Heart failure, unspecified; W18.11XA Fall from or off toilet without subsequent striking against object, initial encounter; Z87.891 Personal history of nicotine dependence; Z79.899 Other long term (current) drug therapy; Z79.02 Long term (current) use of antithrombotics/antiplatelets
CPT/HCPCS: 73030; 73560-LT; 73610; A9270; J1885

== ENCOUNTER → 2023-01-17 | Outpatient (CLI) | payer OTHER ==
[~2023-01-17] MED LIST changes: +Norco 5-325 Ta1 EACH PO
== END | disposition home or self-care (01) ==
LOC: LAB 18:24 → LAB SHORT 18:24
DX: L03.115 Cellulitis of right lower limb (principal)
CPT/HCPCS: 87070; 87075; 87077; 87147; 87186; 87205

== ENCOUNTER 2023-01-21 03:23 | Emergency (ER) | payer OTHER ==
[~2023-01-21] VITALS: Ht 182.9 cm; Wt 145.2 kg
[2023-01-21 04:08] LABS: BASOPHILS ABSOLUTE AUTO 0.04 K/mm3 (0.00-0.23); BASOPHILS PERCENT AUTO 1 % (0-2); EOSINOPHILS ABSOLUTE AUTO 0.33 K/mm3 (0.00-0.68); EOSINOPHILS PERCENT AUTO 4 % (0-6); Hematocrit 44.5 % (37.0-53.0); Hemoglobin 14.8 g/dL (13.5-17.5); IMMATURE GRAN ABSOLUTE AUTO 0.04 K/mm3 (0.00-0.10); IMMATURE GRAN PERCENT AUTO 1 % (0-1); LYMPHOCYTES ABSOLUTE AUTO 1.04 K/mm3 (0.84-5.20); LYMPHOCYTES PERCENT AUTO 13 % (21-46); MONOCYTES ABSOLUTE AUTO 0.77 K/mm3 (0.16-1.47); MONOCYTES PERCENT AUTO 9 % (4-13); Mean Corpuscular HGB 28.8 pg (26.0-34.0); Mean Corpuscular HGB Conc 33.3 g/dL (31.5-36.5); Mean Corpuscular Volume 87 fL (80-100); Mean Platelet Volume 9.3 fL (9.1-12.4); NEUTROPHILS ABSOLUTE AUTO 5.93 K/mm3 (1.96-9.15); NEUTROPHILS PERCENT AUTO 73 % (41-73); Platelet Count 216 K/mm3 (150-400); RDW Coefficient Variation 15.5 % (11.7-14.2); Red Blood Cell Count 5.13 M/mm3 (4.30-5.90); White Blood Cell Count 8.15 K/mm3 (4.00-11.30)
[2023-01-21 04:26] LABS: Albumin, Blood 3.6 g/dL (3.4-5.0); Albumin/Globulin Ratio 0.9 (0.8-1.8); Bilirubin, Total 0.6 mg/dL (0.1-1.0); Bun/Creatinine Ratio 21.3 (12.0-20.0); Calcium, Blood 8.9 mg/dL (8.5-10.1); Creatinine, Blood 1.36 mg/dL (0.60-1.20); Potassium, Blood 4.4 mmol/L (3.5-5.5); Total Protein, Blood 7.6 g/dL (6.4-8.2)
== END 2023-01-21 06:10 | disposition left against medical advice (07) ==
LOC: ER 03:23
PROVIDERS: Emergency Medicine
DX: R51.9 Headache, unspecified (principal); I48.91 Unspecified atrial fibrillation; S80.811D Abrasion, right lower leg, subsequent encounter; X58.XXXD Exposure to other specified factors, subsequent encounter; I11.0 Hypertensive heart disease with heart failure; I50.9 Heart failure, unspecified; E11.9 Type 2 diabetes mellitus without complications; Z79.899 Other long term (current) drug therapy; Z79.84 Long term (current) use of oral hypoglycemic drugs; Z79.01 Long term (current) use of anticoagulants
CPT/HCPCS: 36415; 70450; 80053; 85025; 93005; 93010; A9270; J0780

== ENCOUNTER 2023-01-23 09:54 | Inpatient (IN) | payer OTHER ==
[~2023-01-23] VITALS: Ht 182.9 cm; Wt 142.0 kg
[2023-01-23 10:47] LABS: BASOPHILS ABSOLUTE AUTO 0.05 K/mm3 (0.00-0.23); BASOPHILS PERCENT AUTO 1 % (0-2); EOSINOPHILS ABSOLUTE AUTO 0.36 K/mm3 (0.00-0.68); EOSINOPHILS PERCENT AUTO 4 % (0-6); Hematocrit 48.9 % (37.0-53.0); Hemoglobin 15.8 g/dL (13.5-17.5); IMMATURE GRAN ABSOLUTE AUTO 0.07 K/mm3 (0.00-0.10); IMMATURE GRAN PERCENT AUTO 1 % (0-1); LYMPHOCYTES ABSOLUTE AUTO 1.79 K/mm3 (0.84-5.20); LYMPHOCYTES PERCENT AUTO 19 % (21-46); MONOCYTES ABSOLUTE AUTO 1.01 K/mm3 (0.16-1.47); MONOCYTES PERCENT AUTO 10 % (4-13); Mean Corpuscular HGB 28.5 pg (26.0-34.0); Mean Corpuscular HGB Conc 32.3 g/dL (31.5-36.5); Mean Corpuscular Volume 88 fL (80-100); Mean Platelet Volume 9.3 fL (9.1-12.4); NEUTROPHILS ABSOLUTE AUTO 6.39 K/mm3 (1.96-9.15); NEUTROPHILS PERCENT AUTO 66 % (41-73); Platelet Count 281 K/mm3 (150-400); RDW Coefficient Variation 15.8 % (11.7-14.2); Red Blood Cell Count 5.55 M/mm3 (4.30-5.90); White Blood Cell Count 9.67 K/mm3 (4.00-11.30)
[2023-01-23 11:06] LABS: Albumin, Blood 3.7 g/dL (3.4-5.0); Albumin/Globulin Ratio 0.9 (0.8-1.8); Bilirubin, Total 0.7 mg/dL (0.1-1.0); Bun/Creatinine Ratio 20.4 (12.0-20.0); Calcium, Blood 8.8 mg/dL (8.5-10.1); Creatinine, Blood 1.52 mg/dL (0.60-1.20); Globulin, Blood 4.3 g/dL (2.2-4.0); Potassium, Blood 4.5 mmol/L (3.5-5.5); Thyroid Stimulating Hormone 5.83 uIU/mL (0.360-4.800)
[2023-01-23 14:29] LABS: Influenza A, PCR NEGATIVE (NEGATIVE); Influenza B, PCR NEGATIVE (NEGATIVE); Resp Syncytial Virus, PCR NEGATIVE (NEGATIVE); SARS-Cov-2 (COVID-19) PCR, MMC NEGATIVE (NEGATIVE)
--- NOTE | 2023-01-24 05:53 | NUR ---
SHIFT SUMMARY PT WAS A&OX4 AT THE BEGINING OF THE SHIFT, HAD A FEVER OF 101.0, HAD A 6-7/10 HEADACHE, STERNAL PAIN, BACK, AND LEG PAIN. THIS MORNING ABOUT 0500 PT STATED THAT HE WAS FEELING MORE CONFUSED, SEE [facility] REASSESSMENT FOR DETAILS. DR. BAKER WAS CALLED AND STATED THAT "I DONT THINK WE NEED TO DO ANYTHING AT THIS TIME, I WILL LOOK INTO HIS CHART". PT'S TEMP HAS GONE DOWN TO 98.8 W/ TYLONAL AND COOL RAGS FOR INTERVENTIONS. THE PT STATES HE FEELS SLIGHTLY SOB AND WEARS HIS CPAP AT NIGHT. ON TELE HE IS AFIB 100'S-120'S AND DENIES ANY ANGINA. HE IS STILL C/O HEAD PAIN. VS STABLE AND PERRLA. PT HAS HIS BED ALARM ON, BED IN LOW, AND CALL LIGHT IN REACH. I WILL CONTINUE TO MONITOR UNTIL SHIFT REPORT IS GIVEN TO THE ONCOMING SHIFT RN. SEE NOTES FOR ANY UPDATES.
[2023-01-24 06:28] LABS: Bun/Creatinine Ratio 21.4 (12.0-20.0); Calcium, Blood 8.6 mg/dL (8.5-10.1); Creatinine, Blood 1.54 mg/dL (0.60-1.20); Potassium, Blood 4.1 mmol/L (3.5-5.5)
[2023-01-24 14:24] LABS: BASOPHILS ABSOLUTE AUTO 0.07 K/mm3 (0.00-0.23); BASOPHILS PERCENT AUTO 1 % (0-2); EOSINOPHILS ABSOLUTE AUTO 0.26 K/mm3 (0.00-0.68); EOSINOPHILS PERCENT AUTO 2 % (0-6); Hematocrit 47.7 % (37.0-53.0); Hemoglobin 16.1 g/dL (13.5-17.5); IMMATURE GRAN ABSOLUTE AUTO 0.05 K/mm3 (0.00-0.10); IMMATURE GRAN PERCENT AUTO 0 % (0-1); LYMPHOCYTES ABSOLUTE AUTO 1.79 K/mm3 (0.84-5.20); LYMPHOCYTES PERCENT AUTO 15 % (21-46); MONOCYTES ABSOLUTE AUTO 1.31 K/mm3 (0.16-1.47); MONOCYTES PERCENT AUTO 11 % (4-13); Mean Corpuscular HGB 29.4 pg (26.0-34.0); Mean Corpuscular HGB Conc 33.8 g/dL (31.5-36.5); Mean Corpuscular Volume 87 fL (80-100); NEUTROPHILS ABSOLUTE AUTO 8.13 K/mm3 (1.96-9.15); NEUTROPHILS PERCENT AUTO 70 % (41-73); Platelet Count 317 K/mm3 (150-400); RDW Coefficient Variation 15.9 % (11.7-14.2); RDW Standard Deviation 50.5 fL (35.1-46.3); Red Blood Cell Count 5.48 M/mm3 (4.30-5.90); White Blood Cell Count 11.61 K/mm3 (4.00-11.30)
--- NOTE | 2023-01-24 17:48 | NUR ---
SHIFT SUMMARY NO ACUTE CHANGES THIS SHIFT. PT A&OX4. SP02>90% ON RA, CPAP WHILE SLEEPING. TELEMETRY SHOWS AFIB HR 110S THIS AM, AROUND 1400 PT HAD 4 SECOND PAUSE AND THEN CONVERTED TO NSR W/ PVCS. CARDIZEM GTT TURNED OFF AT THIS TIME. CURRENTLY NSR HR 80'S ON TELE. TEMP THIS EVENING WAS 99.2. PT C/O OF DIZZINESS THIS AM. MRI NOT DONE TODAY, STILL WORKING ON MRI SCREENING FORM. PT HAS 2 STENTS DONE AT [facility]. MORE INFORMATION NEEDED. CALL PLACED TO [facility]. [facility] ABLE TO GIVE SOME INFORMATION, BUT NOT THE MODEL NUMBERS. MRI STAFF STATED THEY NEED THE MODEL NUMBERS AND WOULD TRY TO RESEARCH/FIND IT. PT WORKED W/ PT STAFF TODAY SOMEWHAT UNSUCCESSFULLY. PT STATES TOO TIRED TO DO MUCH. UP IN CHAIR PART OF DAY. UP TO BSC TO HAVE BM X3. USED URINAL TO VOID. CALL LIGHT IN REACH. CURRENLY SITTING ON SIDE OF BED.
--- NOTE | 2023-01-25 04:39 | NUR ---
SHIFT SUMMARY PT IS A&OX4, HAS NOT HAD ANY NUERO CHANGES, AND WAS TITRAITED OFF OF OXYGEN THIS SHIFT. WHEN HE SLEEPS HE DESATURATES TO THE 80'S DUE TO HIS STEPH BUT WEARS A CPAP. NOT THAT HE IS AWAKE HIS SP02 >95% ON RA. PT HAS HAD INC/CON EPISODES OF URINE AND BOWEL THIS SHIFT. 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 HIS ONLY COMPLAINT WAS PAIN IN HIS HEAD, WHICH HE WAS GIVNE TYLONAL FOR. AT THE START OF THE SHIF THE HAD A LOW GRAVE FEVER BUT HAS GONE AWAY SINCE BEING MEDICATED W/ TYLONAL. HIS BED IS IN LOW, CALL LIGHT IS IN REACH, AND BED ALARM IS ON. I WILL CONTINUE TO MONITOR UNTIL SHIFT REPORT IS GIVEN TO THE ONCOMING SHIFT RN. SEE NOTES FOR ANY UPDATES.
--- NOTE | 2023-01-25 07:14 | NUR ---
ASSUMED CARE: PT RESTING QUIETLY IN BED, CPAP MASK IN PLACE. NSR IN 70S ON TELE. NO ACUTE NEEDS OR CONCERNS AT THIS TIME.
--- NOTE | 2023-01-25 09:27 | NUR ---
ECHO COMPLETED. DR GLOVER CAME TO SEE PT THIS AM. ASKED ABOUT MRI AND REPORTED THAT PT'S STENT INFORMATION WAS UNKNOWN. [facility] AND [facility] FOR REQUEST OF RECORDS.
[2023-01-25 10:22] LABS: BASOPHILS ABSOLUTE AUTO 0.04 K/mm3 (0.00-0.23); BASOPHILS PERCENT AUTO 0 % (0-2); EOSINOPHILS ABSOLUTE AUTO 0.23 K/mm3 (0.00-0.68); EOSINOPHILS PERCENT AUTO 2 % (0-6); Hematocrit 44.3 % (37.0-53.0); Hemoglobin 14.9 g/dL (13.5-17.5); IMMATURE GRAN ABSOLUTE AUTO 0.05 K/mm3 (0.00-0.10); IMMATURE GRAN PERCENT AUTO 1 % (0-1); LYMPHOCYTES ABSOLUTE AUTO 1.63 K/mm3 (0.84-5.20); LYMPHOCYTES PERCENT AUTO 17 % (21-46); MONOCYTES PERCENT AUTO 10 % (4-13); Mean Corpuscular HGB 29.3 pg (26.0-34.0); Mean Corpuscular HGB Conc 33.6 g/dL (31.5-36.5); Mean Corpuscular Volume 87 fL (80-100); Mean Platelet Volume 9.5 fL (9.1-12.4); NEUTROPHILS PERCENT AUTO 69 % (41-73); Platelet Count 243 K/mm3 (150-400); RDW Coefficient Variation 15.7 % (11.7-14.2); RDW Standard Deviation 50.1 fL (35.1-46.3); Red Blood Cell Count 5.09 M/mm3 (4.30-5.90); White Blood Cell Count 9.65 K/mm3 (4.00-11.30)
[2023-01-25 10:45] LABS: Free Thyroxine 1.18 ng/dL (0.70-1.60)
[2023-01-25 10:47] LABS: Albumin, Blood 3.7 g/dL (3.4-5.0); Anion Gap 6 mmol/L (6-16); Blood Urea Nitrogen 36 mg/dL (8-24); Bun/Creatinine Ratio 25.5 (12.0-20.0); CO2, Blood 25 mmol/L (21-32); Calcium, Blood 8.6 mg/dL (8.5-10.1); Chloride, Blood 102 mmol/L (98-108); Creatinine, Blood 1.41 mg/dL (0.60-1.20); Glomerular Filtration Rate 55 (60-); Glucose, Blood 188 mg/dL (70-99); Phosphorus, Blood 3.1 mg/dL (2.5-4.9); Potassium, Blood 4.3 mmol/L (3.5-5.5); Sodium, Blood 133 mmol/L (136-145); Triiodothyronine, Free 1.69 pg/mL (2.18-3.98)
--- NOTE | 2023-01-25 11:17 | NUR ---
DISCUSSED DC PLAN WITH EMANUEL IN CARE MANAGEMENT. PT WORKED WITH PT TODAY AND AMBULATED IN [place] WITH WALKER. EMANUEL STATES DC PLAN HAS CHANGED TO . EMANUEL AWARE THAT WE ARE WAITING FOR FAX FROM [facility] REGARDING STENT INFORMATION TO DETERMINE IF MRI CAN BE DONE PRIOR TO DC. PT CURRENTLY MEDICAL STATUS.
--- NOTE | 2023-01-25 12:31 | NUR ---
REPORT GIVEN TO MEDICAL FLOOR NURSE. PT TRANSFERRED TO ROOM 333 VIA WHEELCHAIR BY BAKER HEAD. NO ACUTE NEEDS OR CONCERNS UPON TRANSFER.
--- NOTE | 2023-01-25 12:50 | NUR ---
PCU TRANSFER RECEIVED REPORT FROM OIL PIPE INSPECTOR AT 12:30 1245: RECEIVED PT FROM PCU VIA W/C. PLACED IN CHAIR AT BEDSIDE, MADE COMFORTABLE, ORIENTED TO ROOM AND UNIT. PT A&O X 4. PLEASANT & COOPERATIVE WITH ALL CARE, ABLE TO MAKE NEEDS KNOWN. ON RA. TELE SHOWS NSR HR 70'S. CALL LIGHT WITHIN REACH. IN CONTACT [facility] FOR HX OF MRSA.
--- NOTE | 2023-01-25 15:30 | NUR ---
Spiritual care visit conducted. Patient is sitting on a chair and alert. Patient is tearful about his "body falling apart." He talks about the constant struggles with brief seasons of more normal activity levels. He talks about his [employer] Alev[employer] sonja and how he leans on God for help and strength. He shares about how emotionally and physically exhausted he is. We explore ways to feel renewed even in times that are extremely challenging. I normalize his experience, reinforce helpful attitudes and practices and provide therapeutic listening and prayer. Patient responded well and showed signs of increased hope and uplifted spirits.
--- NOTE | 2023-01-25 16:40 | NUR ---
REPORT GIVEN TO CHERELLE CROW.
--- NOTE | 2023-01-25 19:57 | NUR ---
SHIFT SUMMARY ASSUMED CARE OF PTN LATE IN SHIFT FROM STEVEN CROW. AGREE WITH SHIFT ASSESSMENT DOCUMENTED. TELEMETRY DID CALL TO REPORT PTN WENT FROM SINUS TO AFIT AT 1706 WITH HR 120'S-140'S, REMAINED THE SAME AT 1800. DR LOVING CONTACTED AND ORDER TO GIVE HS DOSE OF METOPROLOL EARLY, DONE AT 1830. PTN IS IN ISOLATION PRECAUTIONS FOR HX OF MRSA WITH SMALL INJURY/SCRAPE TO RLE, DRESSED EARLIER TODAY WITH OINTMENT, GAUZE, KERLIX. BRUISE TO BACK OF HEAD. CONTINUE TO MONITOR.
--- NOTE | 2023-01-25 20:54 | NUR ---
NOTIFIED BY MULTI SITE LEASING CONSULTANT PT HR IN 150'S-160'S AFTER IV 5 MG METOPROLOL AND 100MG METOPROLOL GIVEN WITHNO EFFECT. HOSPITALIST NOTIFIED AND ORDERED PT TO BE MOVED TO PCU FOR HIGH LEVEL CARE AND CARDIZEM DRIP.
--- NOTE | 2023-01-25 22:37 | NUR ---
TRANSFER: PT ARRIVED TO PCU 6 AT 2215 FROM MED [facility]. ALERT AND ORIENTED X4, ABLE TO FOLLOW COMMANDS AND MAKE NEEDS KNOWN, BP STABLE, AFEBRILE, SATS >96% ON ROOM AIR. HR AFIB 130'S-140'S, CARDIZEM GTT AT 10MG/HR. TOLERATING WELL. NO COMPLAINTS OF CP/PRESSURE AT THIS TIME. BED IN LOW, CALL LIGHT IN REACH, WILL CONTINUE TO MONITOR.
--- NOTE | 2023-01-25 23:06 | NUR ---
PT TRANSFERRED TO PCU WITH ALL BELONGINGS AND RX. ESCORTED BY NURSING STAFF VIA BED. REPORT GIVEN TO JOLYNN ECHOLS RN.
--- NOTE | 2023-01-26 04:32 | NUR ---
SHIFT SUMMARY: PT ALERT AND ORIENTED X4, ABLE TO FOLLOW COMMANDS AND MAKE NEEDS KNOWN. ANXIOUS AT TIMES REGARDING CARE. BP STABLE, AFEBRILE, SATS >96% 2L NC. HR REMAINS AFIB 100-110'S, CARDIZEM GTT AT 10MG/HR IN RAC, TOLERATING WELL. NO COMPLAINTS OF CP/PRESSURE THROUGHOUT THE NIGHT. PT SBA WITH FWW TO AND FROM BATHROOM. NO BM THIS SHIFT. PT AWAITING MRI, WAITING ON INFORMATION FROM [facility] REGARDING CARDIAC STENT COMPATIBILITY. BED IN LOW, CALL LIGHT IN REACH, WILL REPORT TO ONCOMING RN.
[2023-01-26 08:43] LABS: Albumin, Blood 3.6 g/dL (3.4-5.0); Anion Gap 8 mmol/L (6-16); Blood Urea Nitrogen 38 mg/dL (8-24); Bun/Creatinine Ratio 28.1 (12.0-20.0); CO2, Blood 27 mmol/L (21-32); Calcium, Blood 8.9 mg/dL (8.5-10.1); Chloride, Blood 99 mmol/L (98-108); Creatinine, Blood 1.35 mg/dL (0.60-1.20); Glomerular Filtration Rate 58 (60-); Glucose, Blood 163 mg/dL (70-99); Magnesium, Blood 2.1 mg/dL (1.6-2.4); Phosphorus, Blood 3.8 mg/dL (2.5-4.9); Potassium, Blood 4.5 mmol/L (3.5-5.5); Sodium, Blood 134 mmol/L (136-145)
--- NOTE | 2023-01-26 10:47 | NUR ---
Patient is lying in bed and alert. Patient tells me about the medical setback from last evening. He then shares about his frustartion about having his Prozac dosage cut back and how he has been extra emotional (he feels) because of this. He complains about the chage in his lasix and his fears of fluid retention. He is easily encouraged by refocused discussions centered around his sonja and prayer. Patient is tearful at the prayer and voices that the "prayer was exactly what I needed." I will continue to remain available to patient and family.
--- NOTE | 2023-01-27 04:32 | NUR ---
SHIFT SUMMARY: PT REMAINS ALERT AND ORIENTED X4, BP STABLE, HR REMAINS AFIB 90'S-100'S, AFEBRILE, SATS >96% ON ROOM AIR. PT WORE CPAP WITH 2L BLEED IN THROUGHOUT THE NIGHT. CARDIZEM REMAINS AT 5MG/HR, TOLERATING WELL. NO COMPLAINTS OF CP/PRESSURE. PT WITH 2 EPISODES OF INC VOIDS, GOWN AND BEDDING CHANGED. PT BECOMES TEARFUL/ANXIOUS WITH CARE AT TIMES. THERAPEUTIC COMMUNICATION PROVIDED, RESPONDED WELL. CARDIOLOGY IN TO SEE PT YESTERDAY DAYSHIFT, CLEARED PT FOR MRI SCAN. PLAN FOR MRI THIS AM. NO ACUTE CHANGES OVERNIGHT. PT CURRENTLY IN CHAIR WATCHING TV, CALL LIGHT IN REACH, WILL REPORT TO ONCOMING RN.
--- NOTE | 2023-01-27 10:54 | NUR ---
ORHTOSTATIC BLOOD PRESSURE: LAYING 110/8688 BPM99 O2 LAYING TO SITTING 110/8890 BPM98 O2 SITTING 1 MINUTE 108/8688 BPM97 O2 SIT TO STAND 102/8094 BPM97 O2 STANDING 108/8498 BPM97 O2 CALL TO PROVIDER TO INFORM
[2023-01-27] MEDS ORDERED: MECL25 PO (12:09)
--- NOTE | 2023-01-27 15:06 | NUR ---
DISCHARGE SUMMARY: PATIENT IS IN NO SIGN OF ACUTE DISTRESS. >30 MINUTES OF EDUCATION OF DISCHARGE, NEEDS FOR OUTPATIENT FOLLOW UP, AND MEDICATIONS CHANGES. PATIENT HAD NO QUESTIONS CONCERNS THAT WERE NOT ANSWERED. NO FURTHER QUESTIONS COMMMENTS OR CONCERNS IN REGAURDS TO DISCHARGE. PATIETN IS ALERT AND ORIENTED, EMOTIONAL AT TIMES. COOPERATIVE WITH CARE. DENIES CHEST PAIN PRESSURE OR SOB. ON RA AT TIME OF DISCHARGE CPAP WHILE SLEEPING. PATIENT HAS NOT HAD BM SINCE IN HOSPITAL AND WILL START HIS HOME STOOL SOFTNER. NO ACTIVE SIGNS OF ACTUE BLEEDING NEURO AND STRENGTH IN CHECK AND IMPROVING. EDUCATION OF WOUND TREATMENT AND NEED FOR ELEVATION. NO CONCERNS FROM THIS RN AT TIME OF DISCHARGE. IV AND TELE REMOVED.
== END 2023-01-27 13:25 | disposition home or self-care (01) | DRG 83 ==
LOC: ER 09:54 → PCU 17:12 → MEDS 01-25 12:38 → PCU 01-25 22:10
PROVIDERS: Emergency Medicine; Family Medicine; ADMIT Internal Medicine
PROC: 5A09357 Assistance with Respiratory Ventilation, Less than 24 Consecutive Hours, Continuous Positive Airway Pressure (ICD-10-PCS; principal; 2023-01-24)
DX: S06.5XAA Traumatic subdural hemorrhage with loss of consciousness status unknown, initial encounter (principal); D68.9 Coagulation defect, unspecified; E87.1 Hypo-osmolality and hyponatremia; I50.32 Chronic diastolic (congestive) heart failure; Z68.41 Body mass index [BMI] 40.0-44.9, adult; N18.30 Chronic kidney disease, stage 3 unspecified; E11.22 Type 2 diabetes mellitus with diabetic chronic kidney disease; M10.9 Gout, unspecified; J44.9 Chronic obstructive pulmonary disease, unspecified; F32.A Depression, unspecified; I25.10 Atherosclerotic heart disease of native coronary artery without angina pectoris; I87.2 Venous insufficiency (chronic) (peripheral); E87.8 Other disorders of electrolyte and fluid balance, not elsewhere classified; I48.0 Paroxysmal atrial fibrillation; G47.33 Obstructive sleep apnea (adult) (pediatric); F41.9 Anxiety disorder, unspecified; R50.9 Fever, unspecified; R94.6 Abnormal results of thyroid function studies; W18.30XA Fall on same level, unspecified, initial encounter; Z20.822 Contact with and (suspected) exposure to COVID-19; Z95.5 Presence of coronary angioplasty implant and graft; Z99.81 Dependence on supplemental oxygen; Z79.51 Long term (current) use of inhaled steroids; Z79.811 Long term (current) use of aromatase inhibitors; Z87.891 Personal history of nicotine dependence; Z96.649 Presence of unspecified artificial hip joint; Z98.890 Other specified postprocedural states; Z86.14 Personal history of Methicillin resistant Staphylococcus aureus infection; I25.2 Old myocardial infarction; Z79.899 Other long term (current) drug therapy; Z79.02 Long term (current) use of antithrombotics/antiplatelets; Z79.891 Long term (current) use of opiate analgesic; Z79.01 Long term (current) use of anticoagulants
CPT/HCPCS: 0241U; 36415; 70450; 71045; 72125; 80048; 80053; 80069; 82947; 83735; 83880; 84145; 84439; 84443; 84481; 84484; 85025; 90714; 93005; 93010; 94660; 94762; 96374; 96376; 97110; 97116; 97161; 97165; 97530; 97535; 99285-25; A9270; C8929; G0378; J7168; L0160; Q9957

== ENCOUNTER → 2023-02-27 | Outpatient (CLI) | payer OTHER ==
[~2023-02-27] MED LIST changes: +MECL25 PO
[2023-02-27 11:35] LABS: Protein, Urine Quantitative 5.2 mg/dL (0.0-11.9)
== END | disposition home or self-care (01) ==
LOC: LAB 09:56 → LAB SHORT 09:56
PROVIDERS: Internal Medicine Nephrology
DX: I12.9 Hypertensive chronic kidney disease with stage 1 through stage 4 chronic kidney disease, or unspecified chronic kidney disease (principal); N18.30 Chronic kidney disease, stage 3 unspecified; D63.1 Anemia in chronic kidney disease; E55.9 Vitamin D deficiency, unspecified
CPT/HCPCS: 81050; 84156

== ENCOUNTER → 2023-03-21 | Outpatient (CLI) | payer OTHER ==
[2023-03-21 17:11] LABS: Creatinine Urine 82.9 mg/dL (27.00-270.00); Protein, Urine Quantitative 11.6 mg/dL (0.0-11.9)
[2023-03-21 17:14] LABS: Microalbumin, Urine Quant. 13.9 mg/L (0.000-20.000)
== END ==
LOC: LAB 16:00 → LAB SHORT 16:00
PROVIDERS: Internal Medicine Nephrology
DX: N18.30 Chronic kidney disease, stage 3 unspecified (principal); D63.1 Anemia in chronic kidney disease; R76.9 Abnormal immunological finding in serum, unspecified; R94.5 Abnormal results of liver function studies; G60.9 Hereditary and idiopathic neuropathy, unspecified
CPT/HCPCS: 81050; 82043; 82570; 84156

== ENCOUNTER 2023-09-30 09:06 | Inpatient (IN) | payer OTHER, MEDICARE ==
[~2023-09-30] VITALS: Ht 182.9 cm; Wt 150.4 kg
[~2023-09-30 09:06] MED LIST changes: +ATOR20 PO; +DULO60 PO; +Isosorbide Mono30 MG PO; +METO50 PO; +TRAM50 PO
[2023-09-30 09:52] LABS: BASOPHILS ABSOLUTE AUTO 0.06 K/mm3 (0.00-0.23); BASOPHILS PERCENT AUTO 1 % (0-2); EOSINOPHILS ABSOLUTE AUTO 0.21 K/mm3 (0.00-0.68); EOSINOPHILS PERCENT AUTO 3 % (0-6); Hematocrit 43.2 % (37.0-53.0); Hemoglobin 14.2 g/dL (13.5-17.5); IMMATURE GRAN ABSOLUTE AUTO 0.14 K/mm3 (0.00-0.10); IMMATURE GRAN PERCENT AUTO 2 % (0-1); LYMPHOCYTES ABSOLUTE AUTO 1.26 K/mm3 (0.84-5.20); LYMPHOCYTES PERCENT AUTO 15 % (21-46); MONOCYTES ABSOLUTE AUTO 0.77 K/mm3 (0.16-1.47); MONOCYTES PERCENT AUTO 9 % (4-13); Mean Corpuscular HGB 29.3 pg (26.0-34.0); Mean Corpuscular HGB Conc 32.9 g/dL (31.5-36.5); Mean Corpuscular Volume 89 fL (80-100); Mean Platelet Volume 9.3 fL (9.1-12.4); NEUTROPHILS ABSOLUTE AUTO 6.05 K/mm3 (1.96-9.15); NEUTROPHILS PERCENT AUTO 71 % (41-73); Platelet Count 283 K/mm3 (150-400); RDW Coefficient Variation 16.3 % (11.7-14.2); RDW Standard Deviation 51.9 fL (35.1-46.3); Red Blood Cell Count 4.84 M/mm3 (4.30-5.90); White Blood Cell Count 8.49 K/mm3 (4.00-11.30)
[2023-09-30] MEDS ORDERED: DILTIAZEM PO (10:09)
[2023-09-30] MEDS ORDERED: GABAPENTIN (10:09)
[2023-09-30 10:23] LABS: Influenza A, PCR NEGATIVE (NEGATIVE); Influenza B, PCR NEGATIVE (NEGATIVE); Resp Syncytial Virus, PCR NEGATIVE (NEGATIVE); SARS-Cov-2 (COVID-19) PCR, MMC NEGATIVE (NEGATIVE)
[2023-09-30 10:33] LABS: Albumin, Blood 3.4 g/dL (3.4-5.0); Albumin/Globulin Ratio 0.9 (0.8-1.8); Bun/Creatinine Ratio 14.3 (12.0-20.0); Calcium, Blood 8.9 mg/dL (8.5-10.1); Creatinine, Blood 1.12 mg/dL (0.60-1.20); Globulin, Blood 3.9 g/dL (2.2-4.0); Potassium, Blood 5.1 mmol/L (3.5-5.5); Total Protein, Blood 7.3 g/dL (6.4-8.2)
[2023-09-30 13:42] VITALS: BP 131/98
--- NOTE | 2023-09-30 13:45 | NUR ---
ADMIT SUMMARY: PT ARRIVED TO ROOM 326 VIA WHEELCHAIR ON RA. PT A/O X 4, IND TX TO BED. PT C/O COUGH, SOB. PT DENIES PAIN, NAUSEA. PT ORIENTED TO ROOM AND CALL LIGHT. FALL PRECAUTIONS DISCUSSED WITH PT. STRICT I&O'S EXPLAINED TO PT. URINAL PROVIDED. BED IN LOW POSITION AND CALL LIGHT IN REACH. DR. BORJAS HERE NOW DOING ASSESSMENT.
[2023-09-30] MEDS ORDERED: Robaxin750 MG PO (13:57)
[2023-09-30 18:36] LABS: Adenovirus Not Detected (NOT DETECT); Bordetella pertussis Not Detected (NOT DETECT); Chlamydophila pneumoniae Not Detected (NOT DETECT); Coronavirus 229E Not Detected (NOT DETECT); Coronavirus HKU1 Not Detected (NOT DETECT); Coronavirus NL63 Not Detected (NOT DETECT); Coronavirus OC43 Not Detected (NOT DETECT); Human Metapneumovirus Not Detected (NOT DETECT); Human Rhinovirus/Enterovirus Not Detected (NOT DETECT); Influenza A/2009-H1 Not Detected (NOT DETECT); Influenza A/H1 Not Detected (NOT DETECT); Influenza A/H3 Not Detected (NOT DETECT); Influenza B Not Detected (NOT DETECT); Mycoplasma pneumoniae Not Detected (NOT DETECT); Parainfluenza Virus 1 Not Detected (NOT DETECT); Parainfluenza Virus 2 Not Detected (NOT DETECT); Parainfluenza Virus 3 Not Detected (NOT DETECT); Parainfluenza Virus 4 Not Detected (NOT DETECT); Respiratory Syncytial Virus Not Detected (NOT DETECT); SARS-Cov-2 (COVID-19), BioFire Not Detected (NOT DETECT)
[2023-09-30 20:40] VITALS: BP 118/89
[2023-10-01 03:32] VITALS: BP 110/65
--- NOTE | 2023-10-01 04:47 | NUR ---
SHIFT SUMMARY LEIGH WAS ALERT AND FULLY ORIENTED AT THE START OF THE SHIFT. HE IS PLEASANT AND COOPERATIVE. PRIMARY COMPLAINT FOR THE NIGHT IS HIS COUGH. TREATED WITH AVAILABLE MEDS IN EMAR, AND A BREATHING TREATEMENT FROM RT WITH LITTLE RELIEF. DR BARNARD CONTACTED ABOUT THIS AROUND 414, ORDERS RECIEVED FOR A CODEINE COUGH SYRUP, WILL ADMINISTER WHEN VERIFIED AND CONTINUE TO MONITOR. NO ACUTE EVENTS TONIGHT, PT ADVISED TO AMBULATE WITH WALKER AT THIS TIME D/T WEAKNESS. PT AWAKE UPRIGHT IN BED COUGHING CURRENTLY, CALL LIGHT IN REACH.
[2023-10-01 05:45] LABS: BASOPHILS ABSOLUTE AUTO 0.06 K/mm3 (0.00-0.23); BASOPHILS PERCENT AUTO 1 % (0-2); EOSINOPHILS PERCENT AUTO 2 % (0-6); Hematocrit 41.3 % (37.0-53.0); Hemoglobin 13.5 g/dL (13.5-17.5); IMMATURE GRAN ABSOLUTE AUTO 0.15 K/mm3 (0.00-0.10); IMMATURE GRAN PERCENT AUTO 1 % (0-1); LYMPHOCYTES PERCENT AUTO 12 % (21-46); MONOCYTES PERCENT AUTO 8 % (4-13); Mean Corpuscular HGB 28.7 pg (26.0-34.0); Mean Corpuscular HGB Conc 32.7 g/dL (31.5-36.5); Mean Corpuscular Volume 88 fL (80-100); Mean Platelet Volume 9.3 fL (9.1-12.4); NEUTROPHILS ABSOLUTE AUTO 7.96 K/mm3 (1.96-9.15); NEUTROPHILS PERCENT AUTO 76 % (41-73); Platelet Count 271 K/mm3 (150-400); RDW Coefficient Variation 16.6 % (11.7-14.2); RDW Standard Deviation 51.5 fL (35.1-46.3); Red Blood Cell Count 4.71 M/mm3 (4.30-5.90); White Blood Cell Count 10.47 K/mm3 (4.00-11.30)
[2023-10-01 06:15] LABS: Albumin, Blood 3.6 g/dL (3.4-5.0); Albumin/Globulin Ratio 0.9 (0.8-1.8); Bilirubin, Total 1.4 mg/dL (0.1-1.0); Bun/Creatinine Ratio 19.8 (12.0-20.0); Calcium, Blood 8.9 mg/dL (8.5-10.1); Creatinine, Blood 1.26 mg/dL (0.60-1.20); Globulin, Blood 3.8 g/dL (2.2-4.0); Magnesium, Blood 1.7 mg/dL (1.6-2.4); Phosphorus, Blood 3.8 mg/dL (2.5-4.9); Potassium, Blood 4.5 mmol/L (3.5-5.5); Total Protein, Blood 7.4 g/dL (6.4-8.2)
[2023-10-01 07:57] VITALS: BP 130/80
[2023-10-01 16:02] VITALS: BP 113/72
--- NOTE | 2023-10-01 18:16 | NUR ---
SHIFT SUMMARY MR WAYNE HAS HAD A STRONG HACKING COUGH FOR MUCH OF THE SHIFT. HE SAID THAT THE GUAFFIESEN WITH CODEINE HELPS WELL HAVING THE CPAP ON. ON CONTINUOUS PULSE OX IN THE S ON 2L NC. NO CALLS FROM CERTIFIED LACTATION EDUCATOR THIS SHIFT. UP INDEPENDENTLY IN THE ROOM AND MOVING AROUND THE ROOM WELL, STEADY GAIT. SOB ON MINIMAL EXERTION. BED LOW, CALL LIGHT IN REACH.
[2023-10-01 20:15] VITALS: BP 120/76
[2023-10-01 21:45] VITALS: BP 114/73
--- NOTE | 2023-10-02 04:16 | NUR ---
SHIFT SUMMARY LEIGH IS ALERT AND FULLY ORIENTED ON ASSESSMENT. PT STILL HAS VERY PERSISTENT COUGH THAT DEPLETES PT ENERGY. CODEINE COUGH SYRUP WORKS VERY WELL WITH THIS PATIENT. ON CONT BIOX, PT MAINTAINS 02 SATS ABOVE 90% ON 2L OR CPAP, DROPS DOWN TO ABOUT 88 WITHOUT O2. PT CONVERTED FROM AFIB TO SINUS, AND HAS BEEN BRADYING DOWN TO ABOUT 50 INTERMITTENTLY. NO ACUTE EVENTS TONIGHT, NO NOTABLE CHANGES IN CONDITION. PT RESTING IN BED WITH CPAP ON, BED IN LOW POSITION, CALL LIGHT IN REACH.
[2023-10-02 05:21] VITALS: BP 128/96
[2023-10-02 05:36] LABS: Bun/Creatinine Ratio 23.8 (12.0-20.0); Calcium, Blood 8.1 mg/dL (8.5-10.1); Creatinine, Blood 1.47 mg/dL (0.60-1.20); Potassium, Blood 4.3 mmol/L (3.5-5.5)
[2023-10-02 07:51] VITALS: BP 96/67
[2023-10-02 08:44] VITALS: BP 111/69
--- NOTE | 2023-10-02 08:58 | NUR ---
CALLED DR ABURTO- PT HAS A MOIST HACKING COUGH PRODUCING LARGE AMOUNTS OF SPUTUM. PT STATES HE IS VERY TIRED AND WEAK. BP LOW THIS AM RECHECK SHOWS SBP 111. CALLED MD TO CONFIRM WHAT MEDS TO GIVE AND HOLD BASED ON THE LOWER PRESSURE AND COMFORT HR. PT HAS METOPROLOL, CARDIZIEM, IMDUR AND LASIX ORDERED THIS AM. MD WILL REVIEW. AND SEE THE PT. HOLDING ALL UNTIL MD COMES TO SEE THE PT.
[2023-10-02 10:18] VITALS: BP 110/60
--- NOTE | 2023-10-02 16:12 | NUR ---
PT USING THE BSC FOR THE PURPOSE OF URINE MEASUREMENT- EMPTIED MULTIPLE VOIDS, DARK, MILTON COLORED, STRONG SMELLING URINE, 3100 ML TOTAL. UNABLE TO DETERMINE HOW MANY VOIDS. PT ALSO USING THE BATHROOM FOR STOOLS.
[2023-10-02] MEDS ORDERED: OXYC5 PO (16:19)
[2023-10-02] MEDS ORDERED: TRAZ100 PO (16:21)
[2023-10-02] MEDS ORDERED: METF500 PO (16:22)
[2023-10-02] MEDS ORDERED: DESV50 PO (16:27)
[2023-10-02] MEDS ORDERED: ALLO100 PO (16:28)
[2023-10-02] MEDS ORDERED: DILT120 PO (16:29)
[2023-10-02 16:55] VITALS: BP 126/52
--- NOTE | 2023-10-02 17:51 | NUR ---
SHIFT SUMMARY- PT ALERT, ORIENTED AND INDEPENDENT IN THE ROOM. PT USES THE BSC FOR URINE OUTPUT, BUT OFTEN FORGETS TO LET STAFF KNOW HE HAS GONE. ON CARE ROUNDING STAFF SHOULD CHECK THE COMODE TO SEE IF HE HAS GONE. CEPACOL LOZENGE SEEMS TO BE HELPING THE PT WITH COUGH CONTROL. HIS POINTLESS CONTINUIOUS HACKING HAS BECOME A DEEPER MORE PRODUCTIVE COUGH. PREDNISONE STARTED TODAY. PT STATES HE FEELS ABOUT 40% BETTER TODAY THAN HE HAS FOR THE PAST SEVERAL. LASIX SWITCHED TO PO. PT HR COMFORT. SPOKE TO MD AND SHE ADDED PARAMETERS TO ALL BP MEDS. PT DID NOT RECIEVE ANY RATE CONTROL MEDS TODAY HIS HR WAS COMFORT. CURRENTLY ON TELE HE IS NSR AT 63. WILL PASS ON TO NIGHT RN IN BEDSIDE REPORT. THE CEPACOL LOZENGE IS ORDERED Q2 HOWEVER THE PT DID NOT FEEL HE NEEDED IT THAT OFTEN WAITED 5 HOURS BETWEEN LOZENGES AND THE PT STARTED HACKING CONTINUIOUSLY. MEDICATED WITH ANOTHER CEPACOL AND HE RECOVERED IN ABOUT 5 MINUTES. WILL PASS ON 4 HOURS BETWEEN DOSES WOULD BE IDEAL FOR THIS PT. HOME MED REC RECIEVED FROM [facility] PER MD REQUEST, REVIEWED AND UPDATED IN THE COMPUTER, HOWEVER PT STATES HE DOES NOT TAKE THE OXY OR THE DESVENLAFAXINE. HE ALSO STATED THE 200MG TAB OF METOPROLOL TWICE A DAY WAS CHANGED TO A HALF TAB. AWARE.
[2023-10-02 20:18] VITALS: BP 122/69
--- NOTE | 2023-10-03 00:17 | NUR ---
CAD SPECIALIST REPORTS RUN OF VTA. THIS NURSE ASSESSED PT AND FOUND NO S/S OF DISTRESS. PT STILL EXPERIENCING A COUGH BUT REPORTS NO CHEST PAIN, DIZZINESS, OR NAUSEA. NO ACUTE EVENTS AT THIS TIME.
[2023-10-03 03:55] VITALS: BP 123/67
--- NOTE | 2023-10-03 04:27 | NUR ---
SHIFT SUMMARY PT A&OX4 AND ANSWERS QUESTIONS APPROPRIATELY. PT EXPERIENCING UNCONTROLLABLE BOUTS OF COUGHING. LUNG SOUNDS REVEAL WHEEZING, NO EVIDENCE OF PULMONARY EDEMA IN MY ASSESSMENT. FLUTTER VALVE ENCOURAGED, RT ASSISTING WITH PT CARE, COUGH SYRUP AND LOZENGES GIVEN TO REDUCE COUGH. PT UTELIZES CPAP AT NIGHT AND SUPPLEMENTAL O2 DURING COUGHING FITS. PT VSS. NO ACUTE EVENTS AT THIS TIME. PT LEFT IN A POSITION OF SAFETY WITH FALL PRECAUTIONS IN PLACE AND CALL LIGHT WITHIN REACH.
[2023-10-03 08:08] VITALS: BP 147/68
[2023-10-03 08:20] LABS: Albumin, Blood 3.5 g/dL (3.4-5.0); Anion Gap 7 mmol/L (6-16); Blood Urea Nitrogen 42 mg/dL (8-24); Bun/Creatinine Ratio 32.3 (12.0-20.0); CO2, Blood 26 mmol/L (21-32); Calcium, Blood 8.9 mg/dL (8.5-10.1); Chloride, Blood 98 mmol/L (98-108); Glomerular Filtration Rate 61 (60-); Glucose, Blood 157 mg/dL (70-99); Magnesium, Blood 2.2 mg/dL (1.6-2.4); Phosphorus, Blood 3.4 mg/dL (2.5-4.9); Potassium, Blood 5.2 mmol/L (3.5-5.5); Sodium, Blood 131 mmol/L (136-145)
[2023-10-03 17:24] VITALS: BP 136/83
[2023-10-03 19:25] VITALS: BP 142/78
--- NOTE | 2023-10-03 19:25 | NUR ---
SHIFT SUMMARY: PT A/O X 4, STANDBY ASSIST PLEASANT AND COOPERATIVE. PT CONTINUES TO HAVE COUGH, BUT IMPROVING. NEEDED LESS COUGH MEDICINE TODAY. PAIN FROM COUGH LESSENING ALSO. CONTINUES TO BE ON 2 LPM VIA NC FOR COMFORT.
--- NOTE | 2023-10-04 04:03 | NUR ---
SHIFT SUMMARY PATIENT IS ALERT AND ORIENTED. PATIENT HAS HAD NO ACUTE EVENTS THIS SHIFT. VITAL SIGNS REVIEWED. PATIENT HAS BEEN ON CPAP MOST OF THE NIGHT. PATIENT HAS HAD MOIST COUGH. COUGH SEEMS TO BE IMPROVING AND NOT NEEDING COUGH MEDICATION OFTEN PRIOR SHIFTS. PATIENT HAS NOT COMPLAINED OF PAIN, NAUSEA, SOB OR VOMITTING THIS SHIFT. PATIENT REMAINS ON 2L FOR COMFORT. PATIENT REMAINS IND THIS SHIFT. BED IN LOCKED AND LOWEST POSITION. CALL LIGHT IN PLACE. WILL MONITOR UNTIL SHIFT CHANGE.
[2023-10-04 04:26] VITALS: BP 102/49
[2023-10-04 06:10] LABS: Bun/Creatinine Ratio 38.6 (12.0-20.0); Calcium, Blood 8.6 mg/dL (8.5-10.1); Creatinine, Blood 1.14 mg/dL (0.60-1.20); Potassium, Blood 5.2 mmol/L (3.5-5.5)
[2023-10-04 07:41] VITALS: BP 111/69
[2023-10-04] MEDS ORDERED: ALBU2.5V5 INH (12:38)
[2023-10-04] MEDS ORDERED: AMOCLA875 PO (12:38)
[2023-10-04] MEDS ORDERED: BENZ100A PO (12:39)
[2023-10-04] MEDS ORDERED: CEPACOL LOZENGE MT (12:41)
[2023-10-04] MEDS ORDERED: Q-Tussin100 MG/5 M PO (12:42)
[2023-10-04] MEDS ORDERED: DOCU100 PO (12:42)
[2023-10-04] MEDS ORDERED: VISBIOME 112.51 EACH PO (12:43)
[2023-10-04] MEDS ORDERED: HUMALOG JU100 UNIT/2 (12:43)
[2023-10-04] MEDS ORDERED: IPRAT-ALBUT 0.5-3 ML INH (12:44)
[2023-10-04] MEDS ORDERED: PRED20 PO (12:45)
[2023-10-04] MEDS ORDERED: MIRALAX17 GM PO (12:45)
[2023-10-04] MEDS ORDERED: SENN187 PO (12:46)
--- NOTE | 2023-10-04 13:47 | NUR ---
Patient is sitting on EOB and alert. He talks about his family cruise and the PNA that he came home with. He talks about his goal to live much healthier for 2023 and to stay out of the hospital. He then shares about the family happenings and his sonja. He explains that he will d/c home today. I provide therapeutic listening, levity and prayer/blessing. Patient responded well and showed signs of an elevated mood. I will continue to remain available to patient and family.
--- NOTE | 2023-10-04 15:18 | NUR ---
DISCHARGE SUMMARY: PT DISCHARGED HOME WITH O2 AND NEBULIZER MACHINE. PT EDUCATED ON DISCHARGE MEDICATIONS AND INSTRUCTIONS. PT VU. PT STATED HIS TAKES INSULIN AND HE KNOWS HOW TO DELIVER INSULIN. DENIES NEED FOR INSTRUCTION. DISCUSSED SLIDING SCALE WITH PT. PT ESCORTED TO POV VIA WHEELCHAIR AND PLACED ON 2 LPM VIA NC FOR RIDE HOME. BELONGINGS WITH PT.
== END 2023-10-04 14:35 | disposition home or self-care (01) | DRG 177 ==
LOC: ER 09:06 → MEDS 12:45 → ENPENDDIS 10-04 12:42 → MEDS 10-04 14:35
PROVIDERS: Internal Medicine; Physician Assistant; ADMIT Internal Medicine
PROC: 5A09357 Assistance with Respiratory Ventilation, Less than 24 Consecutive Hours, Continuous Positive Airway Pressure (ICD-10-PCS; principal; 2023-09-30)
DX: J15.69 Pneumonia due to other Gram-negative bacteria (principal); I50.33 Acute on chronic diastolic (congestive) heart failure; J96.21 Acute and chronic respiratory failure with hypoxia; I13.0 Hypertensive heart and chronic kidney disease with heart failure and stage 1 through stage 4 chronic kidney disease, or unspecified chronic kidney disease; N17.9 Acute kidney failure, unspecified; E87.1 Hypo-osmolality and hyponatremia; Z68.41 Body mass index [BMI] 40.0-44.9, adult; J20.8 Acute bronchitis due to other specified organisms; E78.5 Hyperlipidemia, unspecified; I48.0 Paroxysmal atrial fibrillation; G47.33 Obstructive sleep apnea (adult) (pediatric); F32.A Depression, unspecified; I25.10 Atherosclerotic heart disease of native coronary artery without angina pectoris; E11.22 Type 2 diabetes mellitus with diabetic chronic kidney disease; E66.01 Morbid (severe) obesity due to excess calories; N18.30 Chronic kidney disease, stage 3 unspecified; M10.9 Gout, unspecified; Z79.01 Long term (current) use of anticoagulants; I25.2 Old myocardial infarction; Z95.5 Presence of coronary angioplasty implant and graft; Z79.84 Long term (current) use of oral hypoglycemic drugs; Z86.718 Personal history of other venous thrombosis and embolism; Z87.891 Personal history of nicotine dependence; Z11.52 Encounter for screening for COVID-19
CPT/HCPCS: 0202U; 0241U; 36415; 71045; 80048; 80053; 80069; 82947; 83735; 83880; 84100; 84145; 85025; 87070; 87077; 87185; 87205; 94640; 94660; 94664; 94760; 94761; 94762; 96374; 99285-25; A9270; J1940; J2930; J7512

== ENCOUNTER 2023-10-28 12:03 | Inpatient (IN) | payer OTHER, MEDICARE ==
[~2023-10-28] VITALS: Ht 182.9 cm; Wt 140.6 kg
[~2023-10-28 12:03] MED LIST changes: +ALBU2.5V5 INH; +ALLO100 PO; +AMOCLA875 PO; +BENZ100A PO; +CEPACOL LOZENGE MT; +DILT120 PO; +DILTIAZEM PO; +DOCU100 PO; +GABAPENTIN; +HUMALOG JU100 UNIT/2; +IPRAT-ALBUT 0.5-3 ML INH; +MIRALAX17 GM PO; +PRED20 PO; +Robaxin750 MG PO; +SENN187 PO
[2023-10-28 12:33] LABS: BASOPHILS ABSOLUTE AUTO 0.01 K/mm3 (0.00-0.23); BASOPHILS PERCENT AUTO 0 % (0-2); EOSINOPHILS ABSOLUTE AUTO 0.23 K/mm3 (0.00-0.68); EOSINOPHILS PERCENT AUTO 4 % (0-6); Hematocrit 39.4 % (37.0-53.0); Hemoglobin 13.2 g/dL (13.5-17.5); IMMATURE GRAN ABSOLUTE AUTO 0.03 K/mm3 (0.00-0.10); IMMATURE GRAN PERCENT AUTO 1 % (0-1); LYMPHOCYTES ABSOLUTE AUTO 1.06 K/mm3 (0.84-5.20); LYMPHOCYTES PERCENT AUTO 18 % (21-46); MONOCYTES ABSOLUTE AUTO 0.48 K/mm3 (0.16-1.47); MONOCYTES PERCENT AUTO 8 % (4-13); Mean Corpuscular HGB 30.1 pg (26.0-34.0); Mean Corpuscular HGB Conc 33.5 g/dL (31.5-36.5); Mean Corpuscular Volume 90 fL (80-100); Mean Platelet Volume 10.6 fL (9.1-12.4); NEUTROPHILS ABSOLUTE AUTO 4.14 K/mm3 (1.96-9.15); NEUTROPHILS PERCENT AUTO 70 % (41-73); Platelet Count 140 K/mm3 (150-400); RDW Coefficient Variation 17.7 % (11.7-14.2); RDW Standard Deviation 57.4 fL (35.1-46.3); Red Blood Cell Count 4.38 M/mm3 (4.30-5.90); White Blood Cell Count 5.95 K/mm3 (4.00-11.30)
[2023-10-28 12:52] LABS: Albumin, Blood 3.4 g/dL (3.4-5.0); Albumin/Globulin Ratio 1.1 (0.8-1.8); Bilirubin, Total 0.8 mg/dL (0.1-1.0); Bun/Creatinine Ratio 20.5 (12.0-20.0); Calcium, Blood 8.5 mg/dL (8.5-10.1); Creatinine, Blood 1.51 mg/dL (0.60-1.20); Globulin, Blood 3.1 g/dL (2.2-4.0); Potassium, Blood 4.7 mmol/L (3.5-5.5); Total Protein, Blood 6.5 g/dL (6.4-8.2)
[2023-10-28 16:34] VITALS: BP 127/80
--- NOTE | 2023-10-28 17:31 | NUR ---
shift summary patient arrived to pcu from er at 1553. patient transfered to pcu bed via stand by assist. patient when first arriving strength in right and left arms was equal in strength, about an hour later after patient using the bathroom he noticed right side was becoming more weak. upon reassessment patient right arm weaker than left, no arm drift noted. patient right leg and left leg equal in strength. patient has no facial droop. patient neuro is intact, alert and oriented x4. patient reports numbness and tingling in right arm and right leg. patient nihs stroke scale score is a 1, scored in sensory. patient is q4 neuro checks for 24hr. see admit shift assessment for further detials. patient reports no pain, chest pain/pressure, or shortness of breath with rest. patient becomes short of breath with activity. patient vitals stable and tele afib 80-90. spo2 >95% on room air. patient is able to make needs known and uses call light appropriately. plan of care is up to date at this time. admit is complete.
[2023-10-28 19:51] VITALS: BP 122/78
--- NOTE | 2023-10-28 20:00 | NUR ---
UPDATE CALL PLACED TO RESIDENT WITH PATIENT UPDATE. PATIENT STATING HE IS HAVING INCREASED WEAKNESS TO RIGHT ARM WELL NUMBNESS AND TINGLING. PATIENT REPORTING MINIMAL CHANGE TO RIGHT LEG. PATIENT ABLE AMBULATE IN ROOM AND AROUND UNIT WITH MINIMAL ASSIST USING WALKER. VITALS TAKEN, BP SIGNIFICANTLY LOWER THAN WHEN PATIENT WAS ADMITTED. NO ORDERS FOR PERMISSIVE HYPERTENSION NOTED. SPOKE TO RESIDENT REGARDING PATIENT'S ANTIHYPERTENSIVE MEDICATIONS. VERBAL ORDER TO HOLD METOPROLOL AND LISINOPRIL TONIGHT. SEE EMAR DOCUMENTATION. PATIENT UPDATED WITH PLAN OF CARE AND AGREES.
[2023-10-29 00:11] VITALS: BP 107/79
[2023-10-29 04:10] VITALS: BP 102/68
--- NOTE | 2023-10-29 05:59 | NUR ---
SHIFT SUMMARY PATIENT ALERT AND ORIENTED x4. ABLE TO MAKE NEEDS KNOWN TO STAFF. SEE NEURO ASSESSMENTS FOR Q4 NEURO CHECK DOCUMENTATION. NOTED RIGHT ARM/HAND NUMBNESS AND TINGLING WITH WEAKNESS. NO OTHER DEFECITS THIS SHIFT. BP STABLE, TELE READING AFIB 90-100s. PATIENT ON RA WHILE AWAKE, CPAP WHILE SLEEPING, SPO2 >95%. PATIENT AMBULATING INTO BATHROOM USING WALKER WITH MINIMAL ASSIST, ADEQUATE OUTPUT DURING THE NIGHT. NO OTHER CHANGES. WILL REPORT TO DAY SHIFT RN.
[2023-10-29 07:21] VITALS: BP 117/76
[2023-10-29 15:35] VITALS: BP 149/106
--- NOTE | 2023-10-29 18:11 | NUR ---
SHIFT SUMMARY; ASSUMED CARE AT 0700. A/A/OX4. UP IN CHAIR FOR ALL OF SHIFT. AMBULATES IN UNIT WITH FWW WITH STEADY GAIT. RIGHT HAND PLANT SECURITY GUARD SLIGHTLY WEAKER THAN LEFT. MRI AND ECHO COMPLETED TODAY. STATUS CHANGED TO MEDICAL. PLEASANT AND COOPERATIVE WITH CARE. NO ACUTE CHANGES DURING SHIFT. WILL CONTINUE TO MONITOR AND TREAT UNTIL CHANGE OF SHIFT.
[2023-10-29 20:33] VITALS: BP 127/72
--- NOTE | 2023-10-29 21:42 | NUR ---
PT MEDICATIONS ADMINISTERED WHOLE WITH FLUIDS. NO DIFFICULTY SWALLOWING.
[2023-10-30] VITALS (7 sets, daily range): BP systolic 83–136; BP diastolic 49–93
--- NOTE | 2023-10-30 05:40 | NUR ---
CATTLE KILLER SUMMARY: A&Ox4. PLEASANT AND COOPERATIVE WITH CARE. CALLS APPROPRIATELY AND ABLE TO COMMUNICATE NEEDS EFFECTIVELY. , AVIS, AT BEDSIDE. AFIB ON TELE MONITOR. IV RFA PATENT; FLUSHED AND SALINE LOCKED. SLEPT WITH CPAP ON ALL NIGHT. BPs ON SOFTER SIDE AFTER MEDS, BUT NO C/O DIZZINESS, CHEST PAIN OR LIGHT HEADEDNESS. SOME PARESTHESIA CONTINUES TO RUE, THOUGH REHAB TRAINER ARE EQUAL BILATERALLY. NO ACUTE OVERNIGHT EVENTS. REPORT TO ONCOMING RN.
--- NOTE | 2023-10-30 11:11 | NUR ---
UPDATE PT STATES HIS RIGHT ARM FEELS MORE NUMB AND HIS LEFT LEG NOW FEELS VERY HEAVY AND WEAK. PT STATES HE CAN NOW FEEL TINGLING ON THE ENTIRE RIGHT SIDE OF HIS BODY. BP STABLE. DR. MOORE CALLED AND UPDATED. NEW ORDERS FOR PLAVIX TO BE GIVEN. WILL CONTINUE TO MONITOR CLOSELY
--- NOTE | 2023-10-30 17:12 | NUR ---
SHIFT SUMMARY PT REMAINS ALERT AND ORIENTED. DEFICITS TO RIGHT SIDE REMAIN UNCHANGED FROM PREVIOUS NOTE. VS STABLE. PT DENIES ANY PAIN. PT UP AND AMBULATING THROUGH THE HALLS THIS SHIFT MULTIPLE TIMES. WILL CONTINUE TO MONITOR AND REPORT TO ONCOMING RN
[2023-10-31 00:45] VITALS: BP 105/73
[2023-10-31 05:26] VITALS: BP 109/76
--- NOTE | 2023-10-31 05:37 | NUR ---
SHIFT SUMMARY AOX4. VSS. TELE AFIB HR 70-106. DENIES PAIN, N/V OR DYSPNEA. CHILDCARE TEACHER EQUAL. R SIDED FACIAL DROOP. REPORTS R SIDED WEAKNESS & N/T BETTER THEN YESTERDAY. STATES ONLY RING FINGER & LITTLE FINGER ARE NUMB/TINGLING. STATES R LEG ALSO FEELS BETTER THIS AM. IND IN & HAS AMBULATED HALLS. CALL LIGHT IN REACH. WILL MONITOR.
[2023-10-31 07:46] VITALS: BP 121/56
[2023-10-31 07:59] VITALS: BP 135/83
--- NOTE | 2023-10-31 09:23 | NUR ---
AM NOTE: PATIENT ALERT AND ORIENTED X4. PERRLA, WEARING GLASSES. ABLE TO MOVE ALL EXTREMITIES EQUALLY. BILATERAL GROUNDS SUPERVISOR STRENGTH. NO FACIAL DROOP NOTED. STATES N/T COMES INTERMIT TO RIGHT ARM/HAND AND RIGHT LOWER EXTREMITY. PATIENT STATES THE ONLY NUMBNESS HE HAS THIS AM IS IN HIS RIGHT PINKY/RING FINGER. UP WALKING THIS AM AROUND PCU UNIT WITH FWW. TELE SHOWING AFIB WITH HR 70-80'S. BP STABLE. DENIES CHEST PAIN/PRESSURE/PALPITATIONS. PPP. EDEMA NOTED TO BLE/ANKLES. IV FLUSHED AND SALINE LOCKED. ON ROOM AIR SATING ABOVE 95%. EVEN AND UNLABORED RESPIRATIONS. DENIES SOB/COUGH. WEARING CPAP DURING NOC. BOWEL TONES PRESENT. PATIENT EATING AND VOIDING WNL. DENIES ABDOMINAL PAIN/NAUSEA. SMALL ABRASION TO RIGHT LATERAL SCALP, SCAB. PURPLE/BROWN DISCOLORATION TO BLE CALL LIGHT IN REACH. DENIES OVERALL PAIN. PATIENT HOPING TO BE DISCHARGED HOME TODAY. PT/OT ORDERS IN PLACE. DENIES NEEDS AT THIS TIME. SITTING IN CHAIR AT BEDSIDE TALKING ON PERSONAL CELLPHONE.
--- NOTE | 2023-10-31 10:36 | NUR ---
DR. TERRAZAS BY THIS AM, THIS RN AT BEDSIDE FOR PROVIDER ROUNDING. POSSIBLE DICSHARGE THIS AFTERNOON.
[2023-10-31 11:34] VITALS: BP 145/95
--- NOTE | 2023-10-31 11:38 | NUR ---
OCCUPATIONAL THERAPY IN, MADE PATIENT IND.
[2023-10-31] MEDS ORDERED: CLOP75 PO (13:01)
[2023-10-31] MEDS ORDERED: THERA-D2000 UNIT PO (13:02)
[2023-10-31] MEDS ORDERED: ASPI81CH PO (13:02)
[2023-10-31 13:20] VITALS: BP 98/43
--- NOTE | 2023-10-31 13:54 | NUR ---
DISCHARGE: DISCHARGE INSTRUCTIONS REVIEWED WITH PATIENT. THIS RN EDUCATED ON BLOOD THINNERS AND TO ONLY TAKE PLAVIX FOR 21 DAYS ALONG WITH HOME MEDS AND ASPIRIN. POST 21 DAYS JUST CONTINUE ASPIRIN AND OTHER HOME MEDS. PATIENT ABLE TO TEACH BACK INSTRUCTIONS. FOLLOW UP APPOINTMENTS DISCUSSED. IV REMOVED WNL. PATIENT BELONGINGS PACKET AND DISCHARGE INSTRUCTIONS PLACED WITH BELONGINGS. ON WAY TO SIDING STAPLER PATIENT.
== END 2023-10-31 14:11 | disposition home or self-care (01) | DRG 65 ==
LOC: ER 12:03 → PCU 15:29
PROVIDERS: Student in an Organized Health Care Education/Training Program; ADMIT Internal Medicine
DX: I63.9 Cerebral infarction, unspecified (principal); G81.93 Hemiplegia, unspecified affecting right nondominant side; I50.32 Chronic diastolic (congestive) heart failure; J96.10 Chronic respiratory failure, unspecified whether with hypoxia or hypercapnia; N18.30 Chronic kidney disease, stage 3 unspecified; G47.33 Obstructive sleep apnea (adult) (pediatric); I48.0 Paroxysmal atrial fibrillation; E11.22 Type 2 diabetes mellitus with diabetic chronic kidney disease; I11.0 Hypertensive heart disease with heart failure; E78.5 Hyperlipidemia, unspecified; F32.A Depression, unspecified; M10.9 Gout, unspecified; I25.10 Atherosclerotic heart disease of native coronary artery without angina pectoris; S06.0X0A Concussion without loss of consciousness, initial encounter; W17.89XA Other fall from one level to another, initial encounter; I25.2 Old myocardial infarction; Z95.5 Presence of coronary angioplasty implant and graft; Z79.01 Long term (current) use of anticoagulants; Z87.891 Personal history of nicotine dependence
CPT/HCPCS: 70450; 70496; 70498; 70551; 80053; 82947; 83735; 83880; 84484; 85025; 87081; 93005; 93010; 94660; 94760; 94762; 96365; 96366; 97110; 97161; 97165; 97530; 99285-25; A9270; C8929; J3475; Q9957; Q9967

== ENCOUNTER 2023-11-13 15:34 | Emergency (ER) | payer OTHER ==
[~2023-11-13] VITALS: Ht 182.9 cm; Wt 137.9 kg
[~2023-11-13 15:34] MED LIST changes: +ASPI81CH PO; +CLOP75 PO; +THERA-D2000 UNIT PO
[2023-11-13 17:03] LABS: BASOPHILS ABSOLUTE AUTO 0.04 K/mm3 (0.00-0.23); BASOPHILS PERCENT AUTO 1 % (0-2); EOSINOPHILS ABSOLUTE AUTO 0.13 K/mm3 (0.00-0.68); EOSINOPHILS PERCENT AUTO 2 % (0-6); Hematocrit 40.6 % (37.0-53.0); Hemoglobin 13.5 g/dL (13.5-17.5); IMMATURE GRAN ABSOLUTE AUTO 0.08 K/mm3 (0.00-0.10); IMMATURE GRAN PERCENT AUTO 1 % (0-1); LYMPHOCYTES ABSOLUTE AUTO 1.79 K/mm3 (0.84-5.20); LYMPHOCYTES PERCENT AUTO 23 % (21-46); MONOCYTES ABSOLUTE AUTO 0.54 K/mm3 (0.16-1.47); MONOCYTES PERCENT AUTO 7 % (4-13); Mean Corpuscular HGB 30.1 pg (26.0-34.0); Mean Corpuscular HGB Conc 33.3 g/dL (31.5-36.5); Mean Corpuscular Volume 90 fL (80-100); Mean Platelet Volume 9.7 fL (9.1-12.4); NEUTROPHILS ABSOLUTE AUTO 5.13 K/mm3 (1.96-9.15); NEUTROPHILS PERCENT AUTO 67 % (41-73); Platelet Count 233 K/mm3 (150-400); RDW Coefficient Variation 18.7 % (11.7-14.2); RDW Standard Deviation 60.7 fL (35.1-46.3); Red Blood Cell Count 4.49 M/mm3 (4.30-5.90); White Blood Cell Count 7.71 K/mm3 (4.00-11.30)
[2023-11-13 17:24] LABS: Influenza A, PCR NEGATIVE (NEGATIVE); Influenza B, PCR NEGATIVE (NEGATIVE); Resp Syncytial Virus, PCR NEGATIVE (NEGATIVE); SARS-Cov-2 (COVID-19) PCR, MMC NEGATIVE (NEGATIVE)
[2023-11-13 17:49] LABS: Albumin, Blood 3.7 g/dL (3.4-5.0); Albumin/Globulin Ratio 1.1 (0.8-1.8); Bun/Creatinine Ratio 27.1 (12.0-20.0); Calcium, Blood 8.9 mg/dL (8.5-10.1); Creatinine, Blood 1.33 mg/dL (0.60-1.20); Globulin, Blood 3.5 g/dL (2.2-4.0); Potassium, Blood 4.5 mmol/L (3.5-5.5); Total Protein, Blood 7.2 g/dL (6.4-8.2)
[2023-11-13 18:30] VITALS: BP 119/81
== END 2023-11-13 19:19 | disposition home or self-care (01) ==
LOC: ER 15:34
PROVIDERS: Student in an Organized Health Care Education/Training Program
DX: R20.2 Paresthesia of skin (principal); R05.9 Cough, unspecified; I13.0 Hypertensive heart and chronic kidney disease with heart failure and stage 1 through stage 4 chronic kidney disease, or unspecified chronic kidney disease; I50.30 Unspecified diastolic (congestive) heart failure; E11.22 Type 2 diabetes mellitus with diabetic chronic kidney disease; N18.9 Chronic kidney disease, unspecified; Z86.73 Personal history of transient ischemic attack (TIA), and cerebral infarction without residual deficits; J96.10 Chronic respiratory failure, unspecified whether with hypoxia or hypercapnia; E78.5 Hyperlipidemia, unspecified; I48.0 Paroxysmal atrial fibrillation; G47.33 Obstructive sleep apnea (adult) (pediatric); I25.10 Atherosclerotic heart disease of native coronary artery without angina pectoris; Z79.01 Long term (current) use of anticoagulants; Z79.02 Long term (current) use of antithrombotics/antiplatelets; Z79.82 Long term (current) use of aspirin; Z79.899 Other long term (current) drug therapy
CPT/HCPCS: 0241U; 70450; 71046; 80053; 83721; 83880; 85025; 93005; 93010; 99284-25

== ENCOUNTER 2024-04-08 10:24 | Day surgery (SDC) | payer OTHER ==
[~2024-04-08 10:24] MED LIST changes: +CLIN150 PO; +JARDIANCE10 MG PO
[2024-04-08 15:30] VITALS: BP 105/71
== END 2024-04-08 16:21 | disposition home or self-care (01) ==
LOC: ATC 10:24
DX: L03.115 Cellulitis of right lower limb (principal); I48.0 Paroxysmal atrial fibrillation; E78.5 Hyperlipidemia, unspecified; I25.10 Atherosclerotic heart disease of native coronary artery without angina pectoris; I25.2 Old myocardial infarction; F32.9 Major depressive disorder, single episode, unspecified; G47.33 Obstructive sleep apnea (adult) (pediatric); I50.32 Chronic diastolic (congestive) heart failure; E11.22 Type 2 diabetes mellitus with diabetic chronic kidney disease; N18.9 Chronic kidney disease, unspecified; Z99.89 Dependence on other enabling machines and devices; Z87.891 Personal history of nicotine dependence; Z79.84 Long term (current) use of oral hypoglycemic drugs; Z79.899 Other long term (current) drug therapy
CPT/HCPCS: 96365; 96366; J3370; J7050

== ENCOUNTER 2024-04-10 03:05 | Day surgery (SDC) | payer OTHER ==
[2024-04-10 14:57] VITALS: BP 131/63
== END 2024-04-10 16:44 | disposition home or self-care (01) ==
LOC: ATC 03:05
DX: L03.115 Cellulitis of right lower limb (principal); E78.5 Hyperlipidemia, unspecified; E11.22 Type 2 diabetes mellitus with diabetic chronic kidney disease; N18.9 Chronic kidney disease, unspecified; I50.32 Chronic diastolic (congestive) heart failure; G47.33 Obstructive sleep apnea (adult) (pediatric); M10.9 Gout, unspecified; I25.10 Atherosclerotic heart disease of native coronary artery without angina pectoris; I25.2 Old myocardial infarction; Z99.89 Dependence on other enabling machines and devices
CPT/HCPCS: 96365; 96366; J3370; J7050

== ENCOUNTER 2024-10-06 07:41 | Inpatient (IN) | payer OTHER, MEDICARE ==
[~2024-10-06] VITALS: Ht 182.9 cm; Wt 144.2 kg
[~2024-10-06 07:41] MED LIST changes: -ATOR20 PO; +ATOR40TA PO; +Glucophage 850850 MG PO; -LISI5 PO; -METO50 PO; +TOPROL XL200 MG PO
[2024-10-06] MEDS ORDERED: Nitroglycerin/D5W 250 ML IV SCH ×2 (08:10→08:50)
[2024-10-06] MEDS ORDERED: Furosemide 10 MG/ML 4ML Vial IV ONE (08:10)
[2024-10-06] MEDS ORDERED: Lidocaine 2% Jelly Uro-Jet UR ONE (08:15)
[2024-10-06 08:35] LABS: Base Excess Venous -2.3 mmol/L; Bicarbonate Venous 22.2 mmol/L (24.0-30.0); PCO2 Venous 45.6 mmHg (38-42); pH Blood Venous 7.32 (7.34-7.37)
[2024-10-06 08:35] LABS: BASOPHILS ABSOLUTE AUTO 0.06 K/mm3 (0.00-0.23); BASOPHILS PERCENT AUTO 0 % (0-2); EOSINOPHILS ABSOLUTE AUTO 0.29 K/mm3 (0.00-0.68); EOSINOPHILS PERCENT AUTO 2 % (0-6); Hemoglobin 17.8 g/dL (13.5-17.5); IMMATURE GRAN ABSOLUTE AUTO 0.04 K/mm3 (0.00-0.10); IMMATURE GRAN PERCENT AUTO 0 % (0-1); LYMPHOCYTES ABSOLUTE AUTO 1.14 K/mm3 (0.84-5.20); LYMPHOCYTES PERCENT AUTO 9 % (21-46); MONOCYTES ABSOLUTE AUTO 0.32 K/mm3 (0.16-1.47); MONOCYTES PERCENT AUTO 2 % (4-13); Mean Corpuscular HGB 27.9 pg (26.0-34.0); Mean Corpuscular Volume 90 fL (80-100); Mean Platelet Volume 9.7 fL (9.1-12.4); NEUTROPHILS ABSOLUTE AUTO 11.53 K/mm3 (1.96-9.15); NEUTROPHILS PERCENT AUTO 86 % (41-73); Platelet Count 172 K/mm3 (150-400); RDW Coefficient Variation 19.6 % (11.7-14.2); RDW Standard Deviation 60.5 fL (35.1-46.3); Red Blood Cell Count 6.37 M/mm3 (4.30-5.90); White Blood Cell Count 13.38 K/mm3 (4.00-11.30)
[2024-10-06 08:44] LABS: Hematocrit 57.5 % (37.0-53.0)
[2024-10-06 08:52] LABS: Albumin, Blood 4.2 g/dL (3.4-5.0); Bilirubin, Total 1.7 mg/dL (0.1-1.0); Bun/Creatinine Ratio 17.4 (12.0-20.0); Calcium, Blood 9.5 mg/dL (8.5-10.1); Creatinine, Blood 1.67 mg/dL (0.60-1.20); Globulin, Blood 4.1 g/dL (2.2-4.0); Potassium, Blood 4.9 mmol/L (3.5-5.5); Total Protein, Blood 8.3 g/dL (6.4-8.2)
[2024-10-06 10:36] LABS: Source, Urine Foley catheter
[2024-10-06 10:38] LABS: Appearance, Urine Clear (Clear); Bilirubin, Urine Neg (Neg); Blood, Urine 1+ (Neg); Color, Urine Yellow (P-Yellow); Glucose Qualitative, Urine 4+ (Neg); Ketones, Urine Neg (Neg); Leukocyte Esterase, Urine Neg (Neg); Nitrite, Urine Neg (Neg); Protein, Urine 3+ (Neg); Specific Gravity, Urine 1.015 (1.003-1.022); Urobilinogen, Urine NORM (Normal)
[2024-10-06 10:44] LABS: Bacteria Rare /hpf; Renal Epithelial Rare /hpf (0-Rare); Squamous Epithelial Cells Rare /hpf (Few); White Blood Cells, Urine 0-2 /hpf (0-5)
[2024-10-06] MEDS ORDERED: Metoclopramide HCl 5MG / ML 2ML Vial IV PRN (12:20)
[2024-10-06] MEDS ORDERED: Magnesium Hydroxide Conc 10 ML UDC PO PRN (12:20)
[2024-10-06] MEDS ORDERED: FLU VACC TS2024-25(6MOS UP)/PF 45 MCG/0.5 ML SYRINGE IM ONE (12:20)
[2024-10-06] MEDS ORDERED: TraZODone HCl 100 MG Tab PO PRN (12:30)
[2024-10-06] MEDS ORDERED: ISOSORBIDE MONO30 MG PO (13:16)
[2024-10-06 14:55] VITALS: BP 148/97
[2024-10-06] MEDS ORDERED: Cymbalta20 MG PO (15:16)
[2024-10-06] MEDS ORDERED: XARELTO20 MG PO (15:18)
[2024-10-06] MEDS ORDERED: JARDIANCE10 MG PO (15:19)
[2024-10-06] MEDS ORDERED: SOAANZ20 M1 PO (15:19)
[2024-10-06] MEDS ORDERED: Acetaminophen 325 MG TABLET PO PRN (15:30)
[2024-10-06] MEDS ORDERED: CefTRIAXone Sodium 1,000 MG in NS 100 ML IV SCH (16:00)
[2024-10-06 16:13] VITALS: BP 165/84
[2024-10-06] MEDS ORDERED: Insulin Human Lispro 100 Units/ML 3ML Syringe SC SCH (16:30)
[2024-10-06] MEDS ORDERED: Azithromycin 500 MG in NS 250 ML IV SCH (16:33)
[2024-10-06 16:58] VITALS: BP 154/74
[2024-10-06 17:37] LABS: Adenovirus Not Detected (NOT DETECT); Coronavirus 229E Not Detected (NOT DETECT); Coronavirus HKU1 Not Detected (NOT DETECT); Coronavirus NL63 Not Detected (NOT DETECT); Coronavirus OC43 Not Detected (NOT DETECT); Human Metapneumovirus Not Detected (NOT DETECT); Human Rhinovirus/Enterovirus Not Detected (NOT DETECT); Influenza A/H1 Not Detected (NOT DETECT); SARS-Cov-2 (COVID-19), BioFire Not Detected (NOT DETECT)
[2024-10-06 17:38] LABS: Bordetella pertussis Not Detected (NOT DETECT); Chlamydophila pneumoniae Not Detected (NOT DETECT); Influenza A/2009-H1 Not Detected (NOT DETECT); Influenza A/H3 Not Detected (NOT DETECT); Influenza B Not Detected (NOT DETECT); Mycoplasma pneumoniae Not Detected (NOT DETECT); Parainfluenza Virus 1 Not Detected (NOT DETECT); Parainfluenza Virus 2 Not Detected (NOT DETECT); Parainfluenza Virus 3 Not Detected (NOT DETECT); Parainfluenza Virus 4 Not Detected (NOT DETECT); Respiratory Syncytial Virus Not Detected (NOT DETECT)
[2024-10-06] MEDS ORDERED: Furosemide 10 MG/ML 4ML Vial IV SCH (18:00)
--- NOTE | 2024-10-06 18:18 | NUR ---
ADMIT / SHIFT SUMMARY: PATIENT ADMIT TO PCU 19 AT 1425. USED SLIDE SHEET TO TRANSFER. ALERT AND ORIENTED X4. KIRBY AT BEDSIDE. PATIENT OVERALL WEAK BUT FOLLOWING ALL COMMANDS AND ABLE TO HELP STAFF TURN IN BED. 1 PERSON ASSIST TO BSC. CHRONIC NEUROPATHY. TELE SHOWING AFIB WITH HR 80'S. DENIES CHEST PAIN/PRESSURE/PALPITATIONS. MILD EDEMA NOTED IN BLE. IV SALINE LOCKED AT TIME OF ADMISSION. ON BIPAP AT 40% FIO2 AT TIME OF ADMISSION. ABLE TO TAKE BREAKS FOR MEALS AND WHILE AWAKE. SATING ABOVE 95% ON 2-4L DEPENDING ON ACTIVITY. PATIENT STATES HIS BREATHING HAS OVERALL IMPROVED. RR 20-24. EVEN RESPIRATIONS. LABORED WHEN UP TO BSC. DENIES COUGH. RESPIRATORY PANEL SENT TO ED UPON ADMIT. BOWEL TONES PRESENT. DENIES ABDOMINAL PAIN/NAUSEA. TOLERATING PO DIET. NO SWALLOWING ISSUES NOTED. STOLL CATH PLACED IN ED. CATH CARE COMPLETED. ATTENDS IN PLACE. UP TO BSC WITH LARGE FORMED BOWEL MOVEMENT. ACHS BLOOD SUGARS. SKIN C/D/I. LLE BRIGHT RED, WARM AND SLIGHTLY SWOLLEN ON ADMIT. THIS RN MARKED REDNESS WITH SKIN MARKER. AT BEDSIDE AND STATES THAT IS NOT NORMAL FOR PATIENTS LEG. THIS RN PLACED CALL TO MD TO UPDATED. MD TO BEDSIDE, PLAN FOR ULTRASOUND. REDNESS AND SWELLING IMPROVED THROUGHOUT SHIFT. TMAX 102.8, MEDICATED WITH TYLENOL. HOME MED REC COMPLETE WITH COPY OF HOME MED LIST IN PAPER CHART. CALL LIGHT IN REACH. PATIENT RESTING IN BED AT THIS TIME.
[2024-10-06 18:52] VITALS: BP 127/73
[2024-10-06 20:00] VITALS: BP 151/98
[2024-10-06] MEDS ORDERED: dilTIAZem HCL 120 MG CAP.CD PO SCH (21:00)
[2024-10-06] MEDS ORDERED: Sennosides 8.6 MG Tab PO SCH (21:00)
[2024-10-06] MEDS ORDERED: Metoprolol Tartrate 50 MG Tab PO SCH (21:00)
[2024-10-06] MEDS ORDERED: Lactobacil 2-S.Thermo-Bifido 1 1 Cap PO SCH (21:00)
[2024-10-06] MEDS ORDERED: Rivaroxaban 10 MG Tab PO SCH (21:00)
[2024-10-06] MEDS ORDERED: Diltiazem HCl 5 MG / ML 5ML Vial IV ONE (22:50)
[2024-10-06 22:58] VITALS: BP 148/92
--- NOTE | 2024-10-06 23:29 | NUR ---
THIS RN ASSUMED CARE OF PT AT 1900. PT IS ALERT AND ORIENTED X3-4 A LITTLE CONFUSED, FOLLOWING COMMANDS AND VERY APPROPRIATE. PT SOUNDS CLEAR/COURSE/DIMINISHED, GOT LASIX TODAY SO COURSE LUNG SOUNDS ARE STARTING TO CLEAR UP. PT IS ON THE BIPAP AND SATTING >95%, PT DENIES SHORTNESS OF BREATH. PT HEART RATE HAS BEEN 120-140s, THIS RN GAVE 120MG OF CARDIZEM AND 100MG OF LOPRESSOR WITH NIGHTTIME MEDS, HEART RATE STILL 120-140s, BLOOD PRESSURE STABLE AT 148/92, PT DENIES CHEST PAIN. THIS RN SPOKE WITH AND ORDERED A ONE TIME DILT PUSH 15MG, HEART RATE CAME DOWN TO 100s. PT DOES HAVE STOLL CATHETER DRAINING TO GRAVITY. NO OTHER INTERVENTIONS AT THE MOMENT. PLAN OF CARE CONTINUED.
[2024-10-07] VITALS (10 sets, daily range): BP systolic 93–134; BP diastolic 64–104
[2024-10-07 05:25] LABS: BASOPHILS ABSOLUTE AUTO 0.04 K/mm3 (0.00-0.23); BASOPHILS PERCENT AUTO 0 % (0-2); EOSINOPHILS PERCENT AUTO 0 % (0-6); Hematocrit 48.8 % (37.0-53.0); Hemoglobin 16.2 g/dL (13.5-17.5); IMMATURE GRAN ABSOLUTE AUTO 0.05 K/mm3 (0.00-0.10); IMMATURE GRAN PERCENT AUTO 0 % (0-1); LYMPHOCYTES ABSOLUTE AUTO 0.87 K/mm3 (0.84-5.20); LYMPHOCYTES PERCENT AUTO 8 % (21-46); MONOCYTES ABSOLUTE AUTO 0.46 K/mm3 (0.16-1.47); MONOCYTES PERCENT AUTO 4 % (4-13); Mean Corpuscular HGB 28.5 pg (26.0-34.0); Mean Corpuscular HGB Conc 33.2 g/dL (31.5-36.5); Mean Corpuscular Volume 86 fL (80-100); Mean Platelet Volume 9.8 fL (9.1-12.4); NEUTROPHILS ABSOLUTE AUTO 10.04 K/mm3 (1.96-9.15); NEUTROPHILS PERCENT AUTO 88 % (41-73); Platelet Count 136 K/mm3 (150-400); RDW Coefficient Variation 19.5 % (11.7-14.2); RDW Standard Deviation 59.1 fL (35.1-46.3); Red Blood Cell Count 5.68 M/mm3 (4.30-5.90); White Blood Cell Count 11.46 K/mm3 (4.00-11.30)
--- NOTE | 2024-10-07 05:45 | NUR ---
PT SUMMARY PT IS MORE AWAKE AND ALERT THIS MORNING, THE DILT PUSH OF 15MG HELPED PT HEART RATE, WAS MORE IN THE 100s, AT AROUND 0545 THE PT HEART RATE WENT BACK INTO THE 130-140s, PT DENIES CHEST PAIN AND BLOOD PRESSURE STABLE AT 133/99. THIS RN CALLED DR. HAWLEY, PROVIDER STATED THEY WOULD DICUSS WITH DAY TEAM. NO OTHER EVENTS TO REPORT OVERNIGHT. PLAN OF CARE CONTINUED.
[2024-10-07 05:49] LABS: Albumin, Blood 3.4 g/dL (3.4-5.0); Albumin/Globulin Ratio 0.9 (0.8-1.8); Bilirubin, Total 1.9 mg/dL (0.1-1.0); Bun/Creatinine Ratio 20.7 (12.0-20.0); Calcium, Blood 9.2 mg/dL (8.5-10.1); Creatinine, Blood 1.79 mg/dL (0.60-1.20); Globulin, Blood 3.9 g/dL (2.2-4.0); Magnesium, Blood 1.8 mg/dL (1.6-2.4); Potassium, Blood 4.3 mmol/L (3.5-5.5); Total Protein, Blood 7.3 g/dL (6.4-8.2)
[2024-10-07] MEDS ORDERED: dilTIAZem HCL 60 MG TAB PO SCH (07:30)
--- NOTE | 2024-10-07 08:00 | NUR ---
AM NOTE: PATIENT ALERT AND ORIENTED. STATES HE IS VERY TIRED AND DID NOT SLEEP MUCH LAST NIGHT. WEARING 4L NASAL CANNULA UPON SHIFT START. BIPAP ON STANDBY. MOVING ALL EXTREMITIES. STATES HE HAS NO PAIN. UP WITH 1 PERSON ASSIST TO BSC OR CHAIR. TELE SHOWING AFIB WITH HR 110-140'S. DENIES CHEST PAIN/PRESSURE/PALPITATIONS. BLOOD PRESSURE STABLE. MINIMAL EDEMA TO BLE. SCD TO RIGHT LOWER EXTREMITY. IV'S SALINE LOCKED AND IV ABX INFUSED THIS AM. PPP. BOWEL TONES PRESENT. POOR APPEATITE. DENIES ABDOMINAL PAIN/NAUSEA. UP TO BSC. STOLL CATH IN PLACE DRAINING CLEAR/YELLOW URINE. LUNG SOUNDS CLEAR AND DIM IN MIDDLE/BILATERAL BASES. DENIES COUGH. OCCASIONAL SOB WITH TALKING AND MOVING AROUND IN BED. DR. GILL BY THIS AM AND THIS RN AT BEDSIDE FOR MD GUZMÁN.
[2024-10-07] MEDS ORDERED: Lisinopril 10 MG Tab PO SCH ×2 (09:00)
[2024-10-07] MEDS ORDERED: Empagliflozin 10 MG TAB PO SCH (09:00)
[2024-10-07] MEDS ORDERED: Allopurinol 100 MG Tab PO SCH (09:00)
[2024-10-07] MEDS ORDERED: DULoxetine HCL 30 MG Cap DR PO SCH (09:00)
[2024-10-07] MEDS ORDERED: Lisinopril 5 MG Tab PO SCH (09:00)
[2024-10-07] MEDS ORDERED: Atorvastatin 40 MG Tab PO SCH (09:00)
--- NOTE | 2024-10-07 12:51 | NUR ---
Patient is sitting on a chair and alert but very sleepy. He immediately tells me that he is very sick and he is having trouble focusing on conversation. I make my visit short. I provided druze reading material that lines up with his spiritual beliefs and provided prayer. Both were welcomed and had an uplifting effect. I will continue to remain available to patient and family.
--- NOTE | 2024-10-07 18:39 | NUR ---
SHIFT SUMMARY: PATIENT REMAINS ALERT AND ORIENTED BUT STATES HE FEELS "FOGGY AND GROGGY" THROUGHOUT THE DAY. TAKING FREQUENT NAPS. SBP IN THE 90'S. TELE CONTINUES TO SHOW AFIB WITH HR 90-110'S DR. GILL CALLED REGARDING EVENING CARDIZEM DOSE AND SOFTER BLOOD PRESSURES. VITAL SIGN PARAMETERS PLACED ON CARDIZEM ADMINISTRATION. EVENING CARDIZEM DOSE HELD PER DR. GILL. REMAINS ON 4L NASAL CANNULA SATING MID 90'S. STOLL CATH CONTINUES TO DRAIN URINE TO GRAVITY. BED BATH COMPLETED TODAY. UP TO RECLINER THIS AFTERNOON. IV ABX INFUSED. PATIENT APPEATITE IMPROVED FOR DINNER. AT BEDSIDE THIS SHIFT AND UPDATED BY THIS RN. CALL LIGHT IN REACH. DENIES NEEDS AT THIS TIME.
[2024-10-07] MEDS ORDERED: Metoprolol Succinate 50 MG TABCR PO SCH (20:00)
--- NOTE | 2024-10-07 20:41 | NUR ---
ASSUMED CARE PT IS A&O X4; SPO2 >92% ON 4LNC; MAP >65; RATE 90'S AFIB. PT DENIES CP, INCREASED SOB, AND NAUSEA AT THIS TIME. PT STATES "I FEEL BETTER THAN YESTERDAY" AND LESS GENERALIZED WEAKNESS. AFEBRILE AT THIS TIME. REDNESS HAS NOT MOVED PAST DEMARCATED LINE AND EDEMA APPEARS SAME BILATERALLY. STOLL PATENT AND DRAINING TO GRAVITY.
[2024-10-08] VITALS (7 sets, daily range): BP systolic 92–128; BP diastolic 62–99
[2024-10-08] MEDS ORDERED: Diltiazem HCl 5 MG / ML 5ML Vial IV SCH ×3 (00:15→01:00)
--- NOTE | 2024-10-08 01:58 | NUR ---
UPDATE DR BARRY NOTIFIED THAT PT'S HR CONTINUES TO BE 110-120'S AND TOUCHING INTO 130'S. ORDERS TO MONITOR AND CALL BACK IF SUSTAINS ABOVE 130.
[2024-10-08] MEDS ORDERED: Diltiazem HCl 5 MG / ML 5ML Vial IV ONE (04:15)
[2024-10-08 04:18] LABS: BASOPHILS ABSOLUTE AUTO 0.03 K/mm3 (0.00-0.23); BASOPHILS PERCENT AUTO 0 % (0-2); EOSINOPHILS ABSOLUTE AUTO 0.05 K/mm3 (0.00-0.68); EOSINOPHILS PERCENT AUTO 0 % (0-6); Hematocrit 46.8 % (37.0-53.0); Hemoglobin 15.3 g/dL (13.5-17.5); IMMATURE GRAN ABSOLUTE AUTO 0.06 K/mm3 (0.00-0.10); IMMATURE GRAN PERCENT AUTO 1 % (0-1); LYMPHOCYTES ABSOLUTE AUTO 0.74 K/mm3 (0.84-5.20); LYMPHOCYTES PERCENT AUTO 6 % (21-46); MONOCYTES ABSOLUTE AUTO 0.71 K/mm3 (0.16-1.47); MONOCYTES PERCENT AUTO 6 % (4-13); Mean Corpuscular HGB 28.2 pg (26.0-34.0); Mean Corpuscular HGB Conc 32.7 g/dL (31.5-36.5); Mean Corpuscular Volume 86 fL (80-100); Mean Platelet Volume 9.7 fL (9.1-12.4); NEUTROPHILS ABSOLUTE AUTO 11.24 K/mm3 (1.96-9.15); NEUTROPHILS PERCENT AUTO 88 % (41-73); Platelet Count 141 K/mm3 (150-400); RDW Coefficient Variation 19.6 % (11.7-14.2); RDW Standard Deviation 60.3 fL (35.1-46.3); Red Blood Cell Count 5.42 M/mm3 (4.30-5.90); White Blood Cell Count 12.83 K/mm3 (4.00-11.30)
[2024-10-08 04:35] LABS: Calcium, Blood 8.8 mg/dL (8.5-10.1); Creatinine, Blood 1.95 mg/dL (0.60-1.20); Potassium, Blood 3.8 mmol/L (3.5-5.5)
[2024-10-08] MEDS ORDERED: Metoprolol Tartrate 1 MG/ML 5 ML VIAL IV ONE (04:45)
[2024-10-08] MEDS ORDERED: FentaNYL Citrate 50 MCG/ML 2 ML Injection IV PRN (05:35)
--- NOTE | 2024-10-08 06:33 | NUR ---
SHIFT SUMMARY PT RESTING QUIETLY IN RECLINER; RATE 110-120'S, TOUCHING INTO 130'S. 20MG TOTAL OF IV CARDIZEM GIVEN OVERNIGHT; LOPRESSOR IV ORDERED, W/ ORDERS TO WAIT AFTER FENTANYL ADMINISTRATION; NOT GIVEN D/T SOFT PRESSURES. LLE CAUSING 5-10/10 "SHOOTING" "LIGHTNING" PAIN, PRESENT FOR WHOLE SHIFT, BUT WORSENED OVERNIGHT. DR BARRY AWARE AND AT BEDSIDE TO ASSESS W/ ORDERS FOR ULTRASOUND. REDNESS HAS NOT MOVED PAST DEMARCATED LINE.
[2024-10-08] MEDS ORDERED: dilTIAZem HCL 60 MG TAB PO SCH (07:30)
--- NOTE | 2024-10-08 08:20 | NUR ---
MD'S ROUNDED AND SPOKE WITH PATIENT. THIS RN ASKED OR PAIN COVERAGE WHAT WE HAD WAS NOT WORKING AND WAS MAKING THE PATIENT FEEL NAUSEOUS. MD NOTIFIED OF THE HEART RATE JUMPING FROM TIME TO TIME. AWAITING ORDERS.
[2024-10-08] MEDS ORDERED: OxyCODONE HCL 5 MG TAB PO PRN (08:30)
[2024-10-08] MEDS ORDERED: Furosemide 10 MG / ML 2ML Vial IV SCH (09:00)
[2024-10-08] MEDS ORDERED: Vancomycin HCL 2,500 MG in NS 500 ML IV SCH (10:00)
--- NOTE | 2024-10-08 12:31 | NUR ---
called wanting an update regaring his heart rate. this rn notified about where he has been sitting and notified about the lower blood pressure.
--- NOTE | 2024-10-08 16:46 | NUR ---
END OF SHIFT SUMMARY: PATIENT IS ALERT AND ORIENTED X4 AND ACTIVE IN HIS CARE. IS ON TELE SHOWING AFIB WITH RATE THIS MORNING BEING IN THE 110-120, AFTER SOME MEDICATION ADJUSTMENTS HIS RATE IS NOW IN THE 80'S. SATTING >92% ON 2 LITERS VIA NASAL CANNULA. PATIENT DOES NOT USE OXYGEN AT HOME EXCEPT A CPAP MACHINE AT [facility]. BLOOD PRESSURE WENT BELOW 100 SYSTOLIC AND PER EMAR EVENING DOSE OF CARDIZEM WAS HELD. PATIENT HAD A FOLLOW UP CHEST X-RAY DONE AND RESULTS FOR THAT ARE IN THE CHART. LLE IS RED BUT NO NEW SWELLING. NEEDED COVERAGE THROUGHOUT THE SHIFT FOR PAIN AND PER EMAR WAS MEDICATED. CURRENTLY BLADDER TRAINING FOR POSSIBLE DC OF STOLL. IS A ONE PERSON ASSIST WITH THE FRONT WHEELED WALKER TO USE BEDSIDE COMMODE OR TO GET TO THE CHAIR. NO EVENTS THROUGHOUT SHIFT, WILL CONTINUE TO MONIOTR UNTIL STRINGS TEACHER RN HANDOFF.
--- NOTE | 2024-10-08 22:16 | NUR ---
ASSUMED CARE PT RESTING QUIETLY IN BED W/ CPAP ON 2LNC. DENIES CP, SOB, AND NAUSEA. C/O OF 5/10 PAIN IN LLE "SAME LAST NIGHT", BUT W/ LESS SEVERITY. RATE <100; MAP >65.
[2024-10-09 03:47] VITALS: BP 97/70
[2024-10-09 04:18] LABS: BASOPHILS ABSOLUTE AUTO 0.04 K/mm3 (0.00-0.23); BASOPHILS PERCENT AUTO 0 % (0-2); EOSINOPHILS ABSOLUTE AUTO 0.51 K/mm3 (0.00-0.68); EOSINOPHILS PERCENT AUTO 5 % (0-6); Hematocrit 42.1 % (37.0-53.0); Hemoglobin 13.9 g/dL (13.5-17.5); IMMATURE GRAN ABSOLUTE AUTO 0.05 K/mm3 (0.00-0.10); IMMATURE GRAN PERCENT AUTO 1 % (0-1); LYMPHOCYTES ABSOLUTE AUTO 0.96 K/mm3 (0.84-5.20); LYMPHOCYTES PERCENT AUTO 9 % (21-46); MONOCYTES ABSOLUTE AUTO 0.83 K/mm3 (0.16-1.47); MONOCYTES PERCENT AUTO 8 % (4-13); Mean Corpuscular HGB 28.4 pg (26.0-34.0); Mean Corpuscular Volume 86 fL (80-100); Mean Platelet Volume 9.8 fL (9.1-12.4); NEUTROPHILS ABSOLUTE AUTO 8.19 K/mm3 (1.96-9.15); NEUTROPHILS PERCENT AUTO 77 % (41-73); Platelet Count 129 K/mm3 (150-400); RDW Coefficient Variation 19.1 % (11.7-14.2); RDW Standard Deviation 59.3 fL (35.1-46.3); Red Blood Cell Count 4.89 M/mm3 (4.30-5.90); White Blood Cell Count 10.58 K/mm3 (4.00-11.30)
[2024-10-09 04:35] LABS: Bun/Creatinine Ratio 25.9 (12.0-20.0); Calcium, Blood 8.3 mg/dL (8.5-10.1); Creatinine, Blood 1.93 mg/dL (0.60-1.20); Magnesium, Blood 2.2 mg/dL (1.6-2.4)
--- NOTE | 2024-10-09 05:25 | NUR ---
SHIFT SUMMARY PT RESTED QUIETLY T/O NIGHT. PT STATES HE "FEELS BETTER". PAIN IS AT ACCEPTABLE LEVELS PER PT IN LLE. CONTINUES TO DENY CP, SOB, AND NAUSEA. NO ACUTE EVENTS OVERNIGHT.
[2024-10-09 07:29] VITALS: BP 111/73
[2024-10-09] MEDS ORDERED: Furosemide 10 MG/ML 4ML Vial IV SCH (07:35)
[2024-10-09] MEDS ORDERED: dilTIAZem HCL 120 MG CAP.CD PO SCH (09:00)
[2024-10-09] MEDS ORDERED: Vancomycin HCL 1,750 MG in NS 500 ML IV SCH (10:00)
[2024-10-09 12:36] VITALS: BP 109/72
[2024-10-09 13:36] LABS: Bun/Creatinine Ratio 29.5 (12.0-20.0); Calcium, Blood 9.1 mg/dL (8.5-10.1); Creatinine, Blood 1.83 mg/dL (0.60-1.20); Potassium, Blood 4.1 mmol/L (3.5-5.5)
--- NOTE | 2024-10-09 15:35 | NUR ---
Patient immediately tells me that he was very discouraged this morning due to his worsening leg infection and yet he is still welcoming and open to conversation. We talk about sources of hope and inspiration and he speaks at length about his love for God and how his sonja has made all the difference in his life to bring meaning and strength in times of need. He encourages himself as he shares about his connection to God and how this has translated into care for other humans. I provided therapeutic listening and prayer. Patient responded well and showed signs of an elevated mood.
[2024-10-09 16:05] VITALS: BP 114/78
--- NOTE | 2024-10-09 16:53 | NUR ---
SHIFT SUMMARY: PATIENT IS MEDICAL WITH TELE STATUS. IS ALERT AND ORIENTED X4 AND ACTIVE IN HIS CARE. ON TELE SHOWING AFIB WITH RATE BETWEEN 90-110. SATTING >92% ON 2 LITERS VIA NASAL CANNULA, EVEN AND UNLABORED BREATHING. PATIENT WORKED WITH PT TODAY AND WAS ABLE TO WALK AROUND THE UNIT THROUGHOUT THE SHIFT. NEEDED SOME COVERAGE FOR PAIN PER EMAR THROUGHTOUT SHIFT. STOLL WAS REMOVED AT START OF SHIFT AND PATIENT HAD NO ISSUES, WAS ABLE TO VOID USING THE BEDSIDE COMMODE THROUGHOUT SHIFT. PLAN IS TO CONTINUE TO DIURESIS AND GIVE ANTIBIOTICS AND POSSIBLE DISCHARGE IN A COUPLE DAYS. NO EVENTS THROUGHOUT SHIFT, WILL CONTINUE TO MONITOR UNTIL HANDOFF REPORT TO METAL STORAGE WORKER RN.
[2024-10-09 20:00] VITALS: BP 120/70
[2024-10-09 20:31] VITALS: BP 117/103
--- NOTE | 2024-10-09 21:07 | NUR ---
PT IS ALERT AND ORIENTED X4, PT FOLLOWING COMMANDS AND ABLE TO BACK INTO BED INDEPENDENTLY, PT ALSO WAS ABLE TO SHOWER BEFORE BED. PT HEART RATE 110-120s A-FIB PROVIDER IS AWARE, HOME MEDICATIONS HAVE BEEN RESUMED. PT DENIES CHEST PAIN. PT SOUNDS CLEAR/DIMINSIHED, ON 2L NC SATTING >92%, PT DENIES SHORTNESS OF BREATH. PT DOES HAVE CELLULITIS ON LEFT LOWER EXTREMITY, HAS BEEN OUTLINED TO MAKE SURE IT DOES NOT PROGRESS ANY WORSE. NO OTHER INTERVENTIONS AT THIS TIME. PLAN OF CARE CONTINUED.
[2024-10-10 04:00] VITALS: BP 131/84
[2024-10-10 04:26] LABS: BASOPHILS ABSOLUTE AUTO 0.05 K/mm3 (0.00-0.23); BASOPHILS PERCENT AUTO 0 % (0-2); EOSINOPHILS ABSOLUTE AUTO 0.37 K/mm3 (0.00-0.68); EOSINOPHILS PERCENT AUTO 3 % (0-6); Hematocrit 45.5 % (37.0-53.0); Hemoglobin 14.9 g/dL (13.5-17.5); IMMATURE GRAN ABSOLUTE AUTO 0.07 K/mm3 (0.00-0.10); IMMATURE GRAN PERCENT AUTO 1 % (0-1); LYMPHOCYTES ABSOLUTE AUTO 0.98 K/mm3 (0.84-5.20); LYMPHOCYTES PERCENT AUTO 8 % (21-46); MONOCYTES PERCENT AUTO 9 % (4-13); Mean Corpuscular HGB 28.2 pg (26.0-34.0); Mean Corpuscular HGB Conc 32.7 g/dL (31.5-36.5); Mean Corpuscular Volume 86 fL (80-100); Mean Platelet Volume 9.9 fL (9.1-12.4); NEUTROPHILS ABSOLUTE AUTO 9.34 K/mm3 (1.96-9.15); NEUTROPHILS PERCENT AUTO 79 % (41-73); Platelet Count 170 K/mm3 (150-400); RDW Coefficient Variation 18.6 % (11.7-14.2); RDW Standard Deviation 58.6 fL (35.1-46.3); Red Blood Cell Count 5.28 M/mm3 (4.30-5.90); White Blood Cell Count 11.81 K/mm3 (4.00-11.30)
[2024-10-10 05:27] LABS: Bun/Creatinine Ratio 29.2 (12.0-20.0); Creatinine, Blood 1.85 mg/dL (0.60-1.20); Potassium, Blood 3.8 mmol/L (3.5-5.5)
--- NOTE | 2024-10-10 06:13 | NUR ---
PT SUMMARY PT IS ALERT AND ORIENTED, PT WEARING CPAP AND SLEEPING PEACEFULLY IN BED. NO NEW EVENTS TO REPORT OVERNIGHT. PLAN OF CARE CONTINUED.
[2024-10-10 07:32] VITALS: BP 117/74
[2024-10-10] MEDS ORDERED: Furosemide 10 MG/ML 4ML Vial IV ONE (08:00)
[2024-10-10] MEDS ORDERED: Furosemide 40 MG Tab PO SCH (08:35)
--- NOTE | 2024-10-10 10:05 | NUR ---
AM NOTE: PATIENT ALERT AND ORIENTED. STATES HE IS FEELING TIRED AND FEELS LIKE HIS LLE IS GETTING WORSE. UP TO BATHROOM WITH SBA. PERRLA, WEARING GLASSES. TELE SHOWING AFIB WITH HR 90-120'S. DENIES CHEST PAIN/PRESSURE/PALPITATIONS. SBP 110'S. IV SALINE LOCKED. EDEMA TO LLE. UPON SHIFT START PATIENT WEARING HOME CPAP WITH 3L BLEED IN. TITRATED TO ROOM AIR THIS AM. INTERMIT NEEDING UP TO 2L NASAL CANNULA WHEN AWAKE. LUNG SOUNDS CLEAR AND DIMINISHED. EVEN AND UNLABORED RESPIRATIONS AT REST. SOB WITH MOVEMENTS. BOWEL TONES PRESENT. DENIES ISSUES WITH VOIDING. INCONTINENT EPISODES THIS AM OF URINE. STRICT I/O. TOLERATING PO DIET. DENIES ABDOMINAL PAIN/NAUSEA. LLE RED, SWOLLEN AND WARM. PATIENT COMPLAINS OF 10/10 PAIN IN LLE THIS AM, MEDICATED PER EMAR WITH IMPROVEMENT IN PAIN. DR. GILL AND DR. GABI PENA AT BEDSIDE THIS AM, THIS RN PRESENT. PATIENT IN RECLINER AT THIS TIME WITH CALL LIGHT IN REACH. DENIES NEEDS.
[2024-10-10 11:11] VITALS: BP 105/70
--- NOTE | 2024-10-10 12:09 | NUR ---
KIRBY CALLED AND UPDATED. PATIENT EATING LUNCH AT THIS TIME IN RECLINER. DENIES NEEDS. AFTERNOON VITALS STABLE. ON 1L NASAL CANNULA SATING MID 90'S. TELE CONTINUES TO SHOW AFIB WITH HR 90-110'S
--- NOTE | 2024-10-10 15:35 | NUR ---
TRANSFER TO 327: REPORT CALLED TO MED FLOOR RN. NO ACUTE CHANGES. VITAL SIGNS STABLE. PATIENT ON 2L NASAL CANNULA. UP TO BATHROOM WITH SBA. CONTINUES TO HAVE LLE INTERMIT PAIN. LLE CONTINUES TO PRESENT WITH REDNESS,SWELLING AND WARMTH. TELE CONTINUES TO SHOW AFIB WITH HR 90-120'S. PHYSICAL THERPAY SESSION TODAY. TOLERATING PO DIET. UPDATED ON TRANSFER.
[2024-10-10] MEDS ORDERED: NS 250 ML IV PRN (15:40)
--- NOTE | 2024-10-10 15:41 | NUR ---
PT TX FROM PCU19 TO ROOM 327 VIA WHEELCHAIR 1540, 2 PERSON, GAIT BELT/WALKER MOD ASSIST TO BED. ORIENTED TO ROOM SET UP AND CALL LIGHT. PT WANTS TO SIT UP IN THE CHAIR, OXYGEN 2L/NC. CRACKLES RLL. NO DYSPNEA NOTED WITH ACTIVITY FROM W/C TO CHAIR. STATES UNDERSTANDING OF CALL SYSTEM.
[2024-10-10 15:53] VITALS: BP 136/85
[2024-10-10] MEDS ORDERED: Vancomycin HCL 1,250 MG in NS 250 ML IV SCH (16:00)
--- NOTE | 2024-10-10 18:33 | NUR ---
SUMMARY- PT TX FROM PCU 19 TODAY AT 1540. RESP EVEN AND UNLABORED EVEN WITH ACTIVITY FROM CHAIR TO BED. O2 2L NC. CRACKLES IN RLL, DIM BASES, OCC SCATTERED WHEEZE. OCC DRY COUGH. PT STATES HE FEELS LESS ENERGY THAN USUAL. PT TRIED TO VOID ONCE AND STATES THE STREEM STOPPED AND WILL TRY AGAIN LATER. PT TOLERATING FOOD AND FLUID. BLOOD SUGAR CHECKED AND COVERED WITH SSI. WILL REPORT TO NOC RN
[2024-10-10 19:41] VITALS: BP 151/79
[2024-10-10] MEDS ORDERED: dilTIAZem HCL 120 MG CAP.CD PO SCH (21:00)
[2024-10-10] MEDS ORDERED: Acyclovir Ointment 15 gm TOP SCH (21:00)
[2024-10-11 03:27] VITALS: BP 142/97
[2024-10-11 06:07] LABS: BASOPHILS ABSOLUTE AUTO 0.07 K/mm3 (0.00-0.23); BASOPHILS PERCENT AUTO 0 % (0-2); EOSINOPHILS ABSOLUTE AUTO 0.09 K/mm3 (0.00-0.68); EOSINOPHILS PERCENT AUTO 1 % (0-6); Hematocrit 40.8 % (37.0-53.0); Hemoglobin 13.9 g/dL (13.5-17.5); IMMATURE GRAN ABSOLUTE AUTO 0.13 K/mm3 (0.00-0.10); IMMATURE GRAN PERCENT AUTO 1 % (0-1); LYMPHOCYTES ABSOLUTE AUTO 0.88 K/mm3 (0.84-5.20); LYMPHOCYTES PERCENT AUTO 5 % (21-46); MONOCYTES ABSOLUTE AUTO 0.94 K/mm3 (0.16-1.47); MONOCYTES PERCENT AUTO 6 % (4-13); Mean Corpuscular HGB 28.8 pg (26.0-34.0); Mean Corpuscular HGB Conc 34.1 g/dL (31.5-36.5); Mean Corpuscular Volume 85 fL (80-100); Mean Platelet Volume 10.6 fL (9.1-12.4); NEUTROPHILS ABSOLUTE AUTO 14.59 K/mm3 (1.96-9.15); NEUTROPHILS PERCENT AUTO 87 % (41-73); Platelet Count 163 K/mm3 (150-400); RDW Coefficient Variation 18.4 % (11.7-14.2); RDW Standard Deviation 56.2 fL (35.1-46.3); Red Blood Cell Count 4.83 M/mm3 (4.30-5.90)
--- NOTE | 2024-10-11 06:19 | NUR ---
SHIFT SUMMARY: Pt is admitted for CHF exacerbation and is a full code. Is alert and able to make needs known. ADLs have been 1p to SBA depending on activity. Denies pain or discomfort when asked. Telly reports afib in the 110-120s with a run a vtac of 18 beats in the 160s. On 2lpm via NC or cpap while sleeping to maintain SPO2 greater than 90%
[2024-10-11 06:24] LABS: Bun/Creatinine Ratio 31.4 (12.0-20.0); Calcium, Blood 9.1 mg/dL (8.5-10.1); Creatinine, Blood 1.53 mg/dL (0.60-1.20); Potassium, Blood 3.8 mmol/L (3.5-5.5)
[2024-10-11 07:26] VITALS: BP 166/95
--- NOTE | 2024-10-11 09:00 | NUR ---
pt sitting up in chair watching tv, took po meds without diff, a/ox4 pleasant and cooperative with care, follows commands well, lungs are clear in upper ortiz, fine crackles in left base, dim in right base, currently on 2 liters 02 via n/c, no cough noted or reported, hrirr, tele in place running afib per monitor, see strip, edema noted to b/l le, left le is red from knees down, area is outlined, states it's hurting a bit more today, is reluctant to ask for pain meds, piv to LH, site is clear and patent, btx4, abd flat soft nontender, voids clint urine via urinal, skin c/w/d, except as noted above, lashawn manriquez, call light in reach.
[2024-10-11 20:53] VITALS: BP 146/85
[2024-10-12 03:46] VITALS: BP 124/80
[2024-10-12 06:01] LABS: Bun/Creatinine Ratio 29.7 (12.0-20.0); Calcium, Blood 8.6 mg/dL (8.5-10.1); Creatinine, Blood 1.48 mg/dL (0.60-1.20); Potassium, Blood 4.2 mmol/L (3.5-5.5)
--- NOTE | 2024-10-12 06:01 | NUR ---
SHIFT SUMMARY PT IS ALERT AND ORIENTED TIMES 4. PT IS FULL CODE. PT HAD PUREWICK PLACED FOR THE NIGHT. PT WAS GIVEN PAIN MEDICATION PER THEIR REQUEST. PT TOLERATED WELL AND APPEARED TO BE EFFECTIVE. BED IN LOW POSITION, RAILS TIMES 2, CALL LIGHT WITHIN REACH.
[2024-10-12 06:04] LABS: BASOPHILS ABSOLUTE AUTO 0.08 K/mm3 (0.00-0.23); BASOPHILS PERCENT AUTO 1 % (0-2); EOSINOPHILS ABSOLUTE AUTO 0.17 K/mm3 (0.00-0.68); EOSINOPHILS PERCENT AUTO 1 % (0-6); Hematocrit 39.1 % (37.0-53.0); Hemoglobin 13.3 g/dL (13.5-17.5); IMMATURE GRAN PERCENT AUTO 2 % (0-1); LYMPHOCYTES ABSOLUTE AUTO 1.11 K/mm3 (0.84-5.20); LYMPHOCYTES PERCENT AUTO 8 % (21-46); MONOCYTES ABSOLUTE AUTO 0.78 K/mm3 (0.16-1.47); MONOCYTES PERCENT AUTO 6 % (4-13); Mean Corpuscular HGB 28.2 pg (26.0-34.0); Mean Corpuscular Volume 83 fL (80-100); NEUTROPHILS ABSOLUTE AUTO 11.67 K/mm3 (1.96-9.15); NEUTROPHILS PERCENT AUTO 83 % (41-73); NRBC ABSOLUTE 0.02 K/mm3 (0.00-0.02); NRBC Auto 0.1 /100 WBC (0.0-0.2); Platelet Count 71 K/mm3 (150-400); RDW Coefficient Variation 18.5 % (11.7-14.2); RDW Standard Deviation 55.5 fL (35.1-46.3); Red Blood Cell Count 4.71 M/mm3 (4.30-5.90); White Blood Cell Count 14.11 K/mm3 (4.00-11.30)
[2024-10-12 06:05] LABS: Mean Platelet Volume 8.9 fL (9.1-12.4)
[2024-10-12 07:18] VITALS: BP 103/65
[2024-10-12] MEDS ORDERED: CeFAZolin Sodium 2,000 MG in NS 100 ML IV SCH ×2 (09:30→16:00)
[2024-10-12] MEDS ORDERED: Colchicine 0.6 MG TAB PO ONE (11:00)
[2024-10-12] MEDS ORDERED: Colchicine 0.6 MG TAB PO SCH (11:30)
[2024-10-12] MEDS ORDERED: Piperacillin/Tazobactam Sod 3.375 GM in NS 100 ML IV SCH (12:00)
[2024-10-12 14:45] VITALS: BP 121/75
[2024-10-12 16:39] LABS: Vancomycin, Trough 20.3 ug/mL (5.0-10.0)
[2024-10-12] MEDS ORDERED: Potassium Chloride 20 MEQ TabCR PO ONE (17:00)
[2024-10-12 20:08] VITALS: BP 149/84
[2024-10-13] MEDS ORDERED: Vancomycin HCL 1,500 MG in NS 250 ML IV SCH (04:00)
[2024-10-13 05:55] VITALS: BP 119/80
[2024-10-13 07:30] VITALS: BP 125/83
[2024-10-13 08:54] LABS: BASOPHILS ABSOLUTE AUTO 0.05 K/mm3 (0.00-0.23); BASOPHILS PERCENT AUTO 1 % (0-2); EOSINOPHILS ABSOLUTE AUTO 0.29 K/mm3 (0.00-0.68); EOSINOPHILS PERCENT AUTO 3 % (0-6); Hematocrit 40.7 % (37.0-53.0); Hemoglobin 13.5 g/dL (13.5-17.5); IMMATURE GRAN PERCENT AUTO 4 % (0-1); LYMPHOCYTES ABSOLUTE AUTO 0.88 K/mm3 (0.84-5.20); LYMPHOCYTES PERCENT AUTO 8 % (21-46); MONOCYTES ABSOLUTE AUTO 0.71 K/mm3 (0.16-1.47); MONOCYTES PERCENT AUTO 7 % (4-13); Mean Corpuscular HGB 28.4 pg (26.0-34.0); Mean Corpuscular HGB Conc 33.2 g/dL (31.5-36.5); Mean Corpuscular Volume 86 fL (80-100); Mean Platelet Volume 9.7 fL (9.1-12.4); NEUTROPHILS ABSOLUTE AUTO 8.32 K/mm3 (1.96-9.15); NEUTROPHILS PERCENT AUTO 78 % (41-73); Platelet Count 200 K/mm3 (150-400); RDW Coefficient Variation 18.5 % (11.7-14.2); RDW Standard Deviation 57.1 fL (35.1-46.3); Red Blood Cell Count 4.76 M/mm3 (4.30-5.90); White Blood Cell Count 10.65 K/mm3 (4.00-11.30)
[2024-10-13] MEDS ORDERED: DULoxetine HCL 60 MG Capsule DR PO SCH (09:00)
[2024-10-13 09:17] LABS: Bun/Creatinine Ratio 28.2 (12.0-20.0); Calcium, Blood 8.7 mg/dL (8.5-10.1); Creatinine, Blood 1.49 mg/dL (0.60-1.20)
[2024-10-13] MEDS ORDERED: Aspirin 81 MG Chew PO SCH (11:00)
[2024-10-13] MEDS ORDERED: Polyethylene Glycol 3350 17 gm PO SCH (12:00)
[2024-10-13 15:22] VITALS: BP 129/75
--- NOTE | 2024-10-13 16:27 | NUR ---
SHIFT SUMMARY INCREASED DEEP REDNESS PAST PRIOR PEN LINE NOTED TO LLE. LEFT LEG SWOLLEN, WARM TO TOUCH. REDNESS REMARKED, SEEN BY DR MUNOZ. PHOTOGRAPHS TAKEN AND PLACED IN THE CHART. WOUND CULTURE SENT FROM WEEPING LARGE BLISTER AFTER CLEANSING IT WITH ALCOHOL. PT HAD C/O CONSTIPATION, NO [id number]. GIVEN MIRILAX THIS AM, MR WAYNE SAID HE FEELS LIKE IT'S WORKING BUT NO BM YET. VENOUS DOPPLAR ULTRASOUND DONE AT BEDSIDE. TELE - AFIB LOW 100S. NO CALLS FROM HELMINTHOLOGIST. UP TO CHAIR WITH 2 PERSON ASSITANCE. MR WAYNE SAID HE'S NOT EXPERIENCING A LOT OF PAIN, MORE FEELINGS OF STIFFNESS IN BOTH LEGS. RESTING IN CHAIR, CALL LIGHT IN REACH, SUPPORTIVE FAMILY AT BEDSIDE.
[2024-10-13 19:33] VITALS: BP 150/101
[2024-10-14 04:56] VITALS: BP 125/82
[2024-10-14 05:23] LABS: BASOPHILS ABSOLUTE AUTO 0.06 K/mm3 (0.00-0.23); BASOPHILS PERCENT AUTO 1 % (0-2); EOSINOPHILS ABSOLUTE AUTO 0.21 K/mm3 (0.00-0.68); EOSINOPHILS PERCENT AUTO 2 % (0-6); Hemoglobin 13.1 g/dL (13.5-17.5); IMMATURE GRAN ABSOLUTE AUTO 0.32 K/mm3 (0.00-0.10); IMMATURE GRAN PERCENT AUTO 3 % (0-1); LYMPHOCYTES ABSOLUTE AUTO 0.99 K/mm3 (0.84-5.20); LYMPHOCYTES PERCENT AUTO 11 % (21-46); MONOCYTES ABSOLUTE AUTO 0.64 K/mm3 (0.16-1.47); MONOCYTES PERCENT AUTO 7 % (4-13); Mean Corpuscular HGB 28.1 pg (26.0-34.0); Mean Corpuscular HGB Conc 32.8 g/dL (31.5-36.5); Mean Corpuscular Volume 86 fL (80-100); Mean Platelet Volume 9.4 fL (9.1-12.4); NEUTROPHILS ABSOLUTE AUTO 7.07 K/mm3 (1.96-9.15); NEUTROPHILS PERCENT AUTO 76 % (41-73); Platelet Count 233 K/mm3 (150-400); RDW Coefficient Variation 18.4 % (11.7-14.2); RDW Standard Deviation 57.3 fL (35.1-46.3); Red Blood Cell Count 4.67 M/mm3 (4.30-5.90); White Blood Cell Count 9.29 K/mm3 (4.00-11.30)
[2024-10-14 06:08] LABS: Bun/Creatinine Ratio 28.8 (12.0-20.0); Calcium, Blood 8.8 mg/dL (8.5-10.1); Creatinine, Blood 1.39 mg/dL (0.60-1.20); Potassium, Blood 3.8 mmol/L (3.5-5.5)
--- NOTE | 2024-10-14 07:36 | NUR ---
SHIFT SUMMARY PT IS ALERT AND ORIENTED TIMES 4. PT IS FULL CODE. PT HAS PUREWICK THAT IS DRAINING WELL. PT WAS GIVEN TYLENOL PER THEIR REQUEST. PT TOLERATED WELL AND IT APPEARED TO BE EFFECTIVE. BED IN LOW POSITION, RAILS TIMES 2, CALL LIGHT WITHIN REACH.
[2024-10-14 07:42] VITALS: BP 113/79
[2024-10-14 15:55] VITALS: BP 132/94
[2024-10-14 16:27] LABS: Vancomycin, Trough 16.9 ug/mL (5.0-10.0)
--- NOTE | 2024-10-14 18:00 | NUR ---
PATIENT IS ALERT AND ORIENTED AND COOPERATIVE WITH CARE. ON RA DURING THE DAY. CPAP WITH O2 AND CONT. PULSE OX AT HS. PATIENT SAT UP IN THE CHAIR MOST OF THE SHIFT. MALE PUREWICK IN PLACE. RN ASKED TO REMOVED THE PUREWICK DURING THE DAY AND THE PATIENT DECLINED. 1PA FWW AND GAITBELT. HE DOES NEED ASSISTANCE STANDING BUT IS STEADY ON HIS FEET AND CAN AMBULATE AROUND HIS ROOM. DR. HURTADO SAW THE PATIENT AGAIN THIS AFTERNOON AND GAVE HIM AN UPDATE THAT HE WILL BE STAYING FOR ANOTHER COUPLE DAYS FOR ABX. NO NEW CONCERNS THIS SHIFT. WILL CONTINUE TO MONITOR
[2024-10-14 19:34] VITALS: BP 143/92
--- NOTE | 2024-10-15 04:14 | NUR ---
A&OX4, VSS, MEDICATED FOR PAIN X1 AT BEDTIME THEN SLEPT T/O THE NIGHT W/CPAP IN PLACE, APPEARS TO BE RESTING COMFORTABLY AT THIS TIME, WILL CONT TO MONITOR UNTIL REPORT GIVEN TO ONCOMING NURSE.
[2024-10-15 04:17] VITALS: BP 116/75
[2024-10-15 06:59] LABS: BASOPHILS ABSOLUTE AUTO 0.08 K/mm3 (0.00-0.23); BASOPHILS PERCENT AUTO 1 % (0-2); EOSINOPHILS ABSOLUTE AUTO 0.18 K/mm3 (0.00-0.68); EOSINOPHILS PERCENT AUTO 2 % (0-6); Hematocrit 39.6 % (37.0-53.0); IMMATURE GRAN ABSOLUTE AUTO 0.25 K/mm3 (0.00-0.10); IMMATURE GRAN PERCENT AUTO 2 % (0-1); LYMPHOCYTES ABSOLUTE AUTO 0.92 K/mm3 (0.84-5.20); LYMPHOCYTES PERCENT AUTO 9 % (21-46); MONOCYTES ABSOLUTE AUTO 0.57 K/mm3 (0.16-1.47); MONOCYTES PERCENT AUTO 6 % (4-13); Mean Corpuscular HGB 28.2 pg (26.0-34.0); Mean Corpuscular HGB Conc 32.8 g/dL (31.5-36.5); Mean Corpuscular Volume 86 fL (80-100); Mean Platelet Volume 9.7 fL (9.1-12.4); NEUTROPHILS ABSOLUTE AUTO 8.31 K/mm3 (1.96-9.15); NEUTROPHILS PERCENT AUTO 81 % (41-73); Platelet Count 261 K/mm3 (150-400); RDW Coefficient Variation 18.2 % (11.7-14.2); RDW Standard Deviation 57.4 fL (35.1-46.3); Red Blood Cell Count 4.61 M/mm3 (4.30-5.90); White Blood Cell Count 10.31 K/mm3 (4.00-11.30)
[2024-10-15 07:17] LABS: Albumin/Globulin Ratio 0.4 (0.8-1.8); Bilirubin, Total 0.7 mg/dL (0.1-1.0); Bun/Creatinine Ratio 24.3 (12.0-20.0); Calcium, Blood 8.7 mg/dL (8.5-10.1); Creatinine, Blood 1.4 mg/dL (0.60-1.20); Potassium, Blood 4.1 mmol/L (3.5-5.5)
[2024-10-15 07:24] VITALS: BP 123/68
--- NOTE | 2024-10-15 11:30 | NUR ---
Patient tells me about the events that happened since my last visit. He talks about his improvement, his sonja and how much he is loking forward to his dtr coming to visit for the holidays. He is tearful as he tells stories of God's faithfulness to him, and some very sweet andtender moments that he remembers having with his dtr throughout the yrs as she grew up. The patietn encourages himself with his own stories and by the theological insights given by this spiritual care provider . I also provided prayer which patient stated was quite meaningful to him. I will continue to remain available to patient and family.
[2024-10-15 15:35] VITALS: BP 118/63
--- NOTE | 2024-10-15 16:48 | NUR ---
PATIENT A/O X 4. PATIENT HAS BEEN UP IN RECLINER ALL DAY WITH LEG ELEVATED. PATIENT HAS NOTED 3+ PITTING EDEMA IN LEFT LEG WITH BLISTERS THAT ARE WEEPING FROM CURRENT INFECTION. PATIENT COOPERATIVE WITH CARE AND HAS VOICED NO NEEDS TODAY. PATIENT PENDIGN POSSIBLE DISCHARGE TOMORROW WITH [facility].
[2024-10-15 19:22] VITALS: BP 141/87
[2024-10-16 02:33] VITALS: BP 129/75
--- NOTE | 2024-10-16 04:36 | NUR ---
A&OX4, VSS, MEDICATED 1X FOR C/O KNEE PAIN, SLEPT T/O THE NIGHT, WILL CONT TO MONITOR UNTIL REPORT GIVEN TO ONCOMING NURSE.
[2024-10-16 05:43] LABS: BASOPHILS ABSOLUTE AUTO 0.06 K/mm3 (0.00-0.23); BASOPHILS PERCENT AUTO 1 % (0-2); EOSINOPHILS PERCENT AUTO 2 % (0-6); Hematocrit 36.7 % (37.0-53.0); IMMATURE GRAN ABSOLUTE AUTO 0.28 K/mm3 (0.00-0.10); IMMATURE GRAN PERCENT AUTO 3 % (0-1); LYMPHOCYTES ABSOLUTE AUTO 0.99 K/mm3 (0.84-5.20); LYMPHOCYTES PERCENT AUTO 9 % (21-46); MONOCYTES ABSOLUTE AUTO 0.58 K/mm3 (0.16-1.47); MONOCYTES PERCENT AUTO 5 % (4-13); Mean Corpuscular HGB 28.4 pg (26.0-34.0); Mean Corpuscular HGB Conc 32.7 g/dL (31.5-36.5); Mean Corpuscular Volume 87 fL (80-100); Mean Platelet Volume 9.8 fL (9.1-12.4); NEUTROPHILS ABSOLUTE AUTO 8.78 K/mm3 (1.96-9.15); NEUTROPHILS PERCENT AUTO 81 % (41-73); Platelet Count 241 K/mm3 (150-400); RDW Coefficient Variation 18.2 % (11.7-14.2); RDW Standard Deviation 56.8 fL (35.1-46.3); Red Blood Cell Count 4.23 M/mm3 (4.30-5.90); White Blood Cell Count 10.89 K/mm3 (4.00-11.30)
[2024-10-16 06:26] LABS: Albumin/Globulin Ratio 0.4 (0.8-1.8); Bilirubin, Total 0.7 mg/dL (0.1-1.0); Bun/Creatinine Ratio 20.6 (12.0-20.0); Calcium, Blood 8.8 mg/dL (8.5-10.1); Creatinine, Blood 1.41 mg/dL (0.60-1.20); Globulin, Blood 4.9 g/dL (2.2-4.0); Potassium, Blood 3.9 mmol/L (3.5-5.5); Total Protein, Blood 6.9 g/dL (6.4-8.2)
[2024-10-16 07:36] VITALS: BP 122/71
--- NOTE | 2024-10-16 07:41 | NUR ---
tele monitor cristal NOTIFIED THIS RN OF 7 RUN VTACH FOLLOWED BY IDIOVENTRICULAR RHYTHM, RETURNED TO [facility] [address]. DR. AFUA GODFREY.
[2024-10-16] MEDS ORDERED: Acetaminophen650 M1 PO (11:58)
[2024-10-16] MEDS ORDERED: OXAYDO5 M1 PO (12:00)
[2024-10-16] MEDS ORDERED: MIRALAX17 GM PO (12:00)
[2024-10-16] MEDS ORDERED: SENN187 PO (12:00)
[2024-10-16] MEDS ORDERED: VISBIOME 112.51 EACH PO (12:01)
[2024-10-16] MEDS ORDERED: CEPH500 PO (12:01)
[2024-10-16] MEDS ORDERED: SULTRIDS PO (12:02)
--- NOTE | 2024-10-16 12:09 | NUR ---
PT BLISTERS ON LLE OPEN AND WEEPING DR. CAAL NOTIFIED, MD WILL SEE PT AT BEDSIDE
--- NOTE | 2024-10-16 16:28 | NUR ---
PT DISCHARGED HOME. DISCHARGE INSTRUCTIONS DISCUSSED WITH PT AND SPOUSE, WOUND CARE PROVIDED, EMPHASIZED IMPORTANCE OF FOLLOW UP APPOINTMENT AND HOME HEALTH TO ASSIST WITH WOUND CARE. DENIES ANY CONCERN AT TIME OF DISCHARGE
== END 2024-10-16 16:27 | disposition home health service (06) | DRG 871 ==
LOC: ER 07:41 → PCU 12:15 → MEDS 12:15 → PCU 14:35 → MEDS 10-10 15:40 → ENPENDDIS 10-16 11:35 → MEDS 10-16 16:27
PROVIDERS: Emergency Medicine; Family Medicine; Student in an Organized Health Care Education/Training Program; ADMIT Hospitalist
PROC: 3E03329 Introduction of Other Anti-infective into Peripheral Vein, Percutaneous Approach (ICD-10-PCS; principal; 2024-10-06)
PROC: 5A09357 Assistance with Respiratory Ventilation, Less than 24 Consecutive Hours, Continuous Positive Airway Pressure (ICD-10-PCS; 2024-10-06)
DX: A41.9 Sepsis, unspecified organism (principal); I50.33 Acute on chronic diastolic (congestive) heart failure; J96.01 Acute respiratory failure with hypoxia; J18.9 Pneumonia, unspecified organism; I13.0 Hypertensive heart and chronic kidney disease with heart failure and stage 1 through stage 4 chronic kidney disease, or unspecified chronic kidney disease; L03.116 Cellulitis of left lower limb; E11.22 Type 2 diabetes mellitus with diabetic chronic kidney disease; I48.0 Paroxysmal atrial fibrillation; E78.5 Hyperlipidemia, unspecified; G47.33 Obstructive sleep apnea (adult) (pediatric); F32.A Depression, unspecified; I25.10 Atherosclerotic heart disease of native coronary artery without angina pectoris; Z96.643 Presence of artificial hip joint, bilateral; D63.1 Anemia in chronic kidney disease; E11.65 Type 2 diabetes mellitus with hyperglycemia; N18.32 Chronic kidney disease, stage 3b; I87.2 Venous insufficiency (chronic) (peripheral); R53.81 Other malaise; E11.51 Type 2 diabetes mellitus with diabetic peripheral angiopathy without gangrene; N18.31 Chronic kidney disease, stage 3a; M10.9 Gout, unspecified; Z95.5 Presence of coronary angioplasty implant and graft; Z90.49 Acquired absence of other specified parts of digestive tract; Z79.811 Long term (current) use of aromatase inhibitors; Z79.899 Other long term (current) drug therapy; Z79.891 Long term (current) use of opiate analgesic; Z79.84 Long term (current) use of oral hypoglycemic drugs; Z79.82 Long term (current) use of aspirin; Z79.2 Long term (current) use of antibiotics; Z79.01 Long term (current) use of anticoagulants; Z99.81 Dependence on supplemental oxygen; Z87.891 Personal history of nicotine dependence; Z98.890 Other specified postprocedural states; I25.2 Old myocardial infarction; Z28.89 Immunization not carried out for other reason
CPT/HCPCS: 0202U; 36415; 51702; 71045; 73701; 76882; 80048; 80053; 80202; 81001; 82803; 82947; 83735; 83880; 84484; 85025; 86141; 87040; 87070; 87205; 93005; 93010; 93925; 93971; 94660; 94760; 94762; 96365-59; 96375-59; 97110; 97112; 97116; 97162; 97530; 99285-25; A9270; J0456; J0690; J0696; J1940; J2543; J3010; J3370; J7040; J7050; Q9967

== ENCOUNTER 2024-10-25 14:38 | Emergency (ER) | payer OTHER, MEDICARE ==
[~2024-10-25] VITALS: Ht 182.9 cm; Wt 142.9 kg
[~2024-10-25 14:38] MED LIST changes: +Acetaminophen650 M1 PO; +Cymbalta20 MG PO; +OXAYDO5 M1 PO; +SOAANZ20 M1 PO; +SULTRIDS PO
[2024-10-25 15:04] VITALS: BP 152/76
[2024-10-25 15:24] LABS: BASOPHILS ABSOLUTE AUTO 0.04 K/mm3 (0.00-0.23); BASOPHILS PERCENT AUTO 1 % (0-2); EOSINOPHILS ABSOLUTE AUTO 0.28 K/mm3 (0.00-0.68); EOSINOPHILS PERCENT AUTO 4 % (0-6); Hematocrit 38.3 % (37.0-53.0); Hemoglobin 12.4 g/dL (13.5-17.5); IMMATURE GRAN ABSOLUTE AUTO 0.02 K/mm3 (0.00-0.10); IMMATURE GRAN PERCENT AUTO 0 % (0-1); LYMPHOCYTES ABSOLUTE AUTO 1.58 K/mm3 (0.84-5.20); LYMPHOCYTES PERCENT AUTO 21 % (21-46); MONOCYTES ABSOLUTE AUTO 0.81 K/mm3 (0.16-1.47); MONOCYTES PERCENT AUTO 11 % (4-13); Mean Corpuscular HGB 28.6 pg (26.0-34.0); Mean Corpuscular HGB Conc 32.4 g/dL (31.5-36.5); Mean Corpuscular Volume 89 fL (80-100); Mean Platelet Volume 8.9 fL (9.1-12.4); NEUTROPHILS ABSOLUTE AUTO 4.99 K/mm3 (1.96-9.15); NEUTROPHILS PERCENT AUTO 65 % (41-73); Platelet Count 296 K/mm3 (150-400); RDW Coefficient Variation 18.4 % (11.7-14.2); RDW Standard Deviation 59.6 fL (35.1-46.3); Red Blood Cell Count 4.33 M/mm3 (4.30-5.90); White Blood Cell Count 7.72 K/mm3 (4.00-11.30)
[2024-10-25 15:56] LABS: Albumin, Blood 2.6 g/dL (3.4-5.0); Albumin/Globulin Ratio 0.4 (0.8-1.8); Bilirubin, Total 1.2 mg/dL (0.1-1.0); Bun/Creatinine Ratio 16.7 (12.0-20.0); Calcium, Blood 8.8 mg/dL (8.5-10.1); Creatinine, Blood 1.74 mg/dL (0.60-1.20); Globulin, Blood 6.1 g/dL (2.2-4.0); Potassium, Blood 4.3 mmol/L (3.5-5.5); Total Protein, Blood 8.7 g/dL (6.4-8.2)
[2024-10-25] MEDS ORDERED: Bactrim Ds Tab1 EACH PO (18:00)
== END 2024-10-25 18:35 | disposition home or self-care (01) ==
LOC: ER 14:38
PROVIDERS: Student in an Organized Health Care Education/Training Program
DX: L03.116 Cellulitis of left lower limb (principal); E11.22 Type 2 diabetes mellitus with diabetic chronic kidney disease; N18.9 Chronic kidney disease, unspecified; G47.33 Obstructive sleep apnea (adult) (pediatric); Z87.891 Personal history of nicotine dependence; Z86.73 Personal history of transient ischemic attack (TIA), and cerebral infarction without residual deficits; Z79.899 Other long term (current) drug therapy; Z79.84 Long term (current) use of oral hypoglycemic drugs
CPT/HCPCS: 80053; 85025; 99283

== ENCOUNTER 2025-05-21 12:47 | Emergency (ER) | payer OTHER, MEDICARE ==
[~2025-05-21] VITALS: Ht 188 cm; Wt 113.4 kg
[~2025-05-21 12:47] MED LIST changes: +ALBUTEROL1.25 MG/3 INH; +Bactrim Ds Tab1 EACH PO; +COMBIVENT RESPIM4 G1 INH; +Colace100 MG PO; -Cymbalta20 MG PO; +HYDCHL25 PO; +LISI10 PO; +MOUNJARO2.5 MG/0.5 SC; +Revatio20 MG; -TOPROL XL200 MG PO
[2025-05-21 12:48] VITALS: BP 161/101
[2025-05-21 13:29] LABS: BASOPHILS ABSOLUTE AUTO 0.06 K/mm3 (0.00-0.23); BASOPHILS PERCENT AUTO 1 % (0-2); EOSINOPHILS ABSOLUTE AUTO 0.20 K/mm3 (0.00-0.68); EOSINOPHILS PERCENT AUTO 3 % (0-6); Hematocrit 48.6 % (37.0-53.0); Hemoglobin 15.3 g/dL (13.5-17.5); IMMATURE GRAN ABSOLUTE AUTO 0.06 K/mm3 (0.00-0.10); IMMATURE GRAN PERCENT AUTO 1 % (0-1); LYMPHOCYTES ABSOLUTE AUTO 1.24 K/mm3 (0.84-5.20); LYMPHOCYTES PERCENT AUTO 15 % (21-46); MONOCYTES ABSOLUTE AUTO 0.73 K/mm3 (0.16-1.47); MONOCYTES PERCENT AUTO 9 % (4-13); Mean Corpuscular HGB Conc 31.5 g/dL (31.5-36.5); Mean Corpuscular Volume 89 fL (80-100); NEUTROPHILS ABSOLUTE AUTO 5.79 K/mm3 (1.96-9.15); NEUTROPHILS PERCENT AUTO 72 % (41-73); NRBC ABSOLUTE 0.00 K/mm3 (0.00-0.02); NRBC Auto 0.0 /100 WBC (0.0-0.2); Platelet Count 157 K/mm3 (150-400); RDW Coefficient Variation 18.3 % (11.7-14.2); RDW Standard Deviation 57.7 fL (35.1-46.3)
[2025-05-21 14:16] LABS: Alanine Aminotransfer (ALT/SGP 27.0 U/L (12-78); Albumin, Blood 3.3 g/dL (3.4-5.0); Albumin/Globulin Ratio 0.9 (0.8-1.8); Anion Gap 8.0 mmol/L (3-11); Aspartate Aminotrans (AST/SGOT 31.0 U/L (12-37); Bilirubin, Total 1.4 mg/dL (0.1-1.0); Blood Urea Nitrogen 35.0 mg/dL (8-24); CO2, Blood 27.0 mmol/L (21-32); Calcium, Blood 8.3 mg/dL (8.5-10.1); Chloride, Blood 103.0 mmol/L (98-108); Creatinine, Blood 1.09 mg/dL (0.60-1.20); Globulin, Blood 3.8 g/dL (2.2-4.0); Glucose, Blood 222.0 mg/dL (70-99); Potassium, Blood 4.1 mmol/L (3.5-5.5); Sodium, Blood 134.0 mmol/L (136-145); Total Protein, Blood 7.1 g/dL (6.4-8.2)
== END 2025-05-21 16:53 | disposition short-term general hospital (02) ==
LOC: ER 12:47
PROVIDERS: Emergency Medicine
DX: S06.5X9A Traumatic subdural hemorrhage with loss of consciousness of unspecified duration, initial encounter (principal); S06.349A Traumatic hemorrhage of right cerebrum with loss of consciousness of unspecified duration, initial encounter; S06.6X9A Traumatic subarachnoid hemorrhage with loss of consciousness of unspecified duration, initial encounter; R55 Syncope and collapse; S01.01XA Laceration without foreign body of scalp, initial encounter; I48.0 Paroxysmal atrial fibrillation; E11.22 Type 2 diabetes mellitus with diabetic chronic kidney disease; N18.9 Chronic kidney disease, unspecified; I50.30 Unspecified diastolic (congestive) heart failure; E78.5 Hyperlipidemia, unspecified; G47.33 Obstructive sleep apnea (adult) (pediatric); I25.10 Atherosclerotic heart disease of native coronary artery without angina pectoris; I25.2 Old myocardial infarction; Z95.5 Presence of coronary angioplasty implant and graft; Z86.73 Personal history of transient ischemic attack (TIA), and cerebral infarction without residual deficits; Z87.891 Personal history of nicotine dependence; Z79.01 Long term (current) use of anticoagulants; Z79.84 Long term (current) use of oral hypoglycemic drugs; Z79.899 Other long term (current) drug therapy; W19.XXXA Unspecified fall, initial encounter
CPT/HCPCS: 12001; 70450; 72125; 80053; 84484; 85025; 93005; 93010; 99285-25; A9270

== ENCOUNTER → 2025-07-28 | Outpatient (CLI) | payer OTHER ==
[2025-07-28 15:40] LABS: C DIFFICILE DNA POSITIVE (Negative)
[2025-08-01 21:49] LABS: OVA AND PARASITE,FECAL INTERP Negative (Negative)
== END | disposition home or self-care (01) ==
LOC: LAB SHORT 11:28 → LAB 11:28
PROVIDERS: Student in an Organized Health Care Education/Training Program
DX: I12.9 Hypertensive chronic kidney disease with stage 1 through stage 4 chronic kidney disease, or unspecified chronic kidney disease (principal); N18.9 Chronic kidney disease, unspecified; K92.1 Melena; R19.7 Diarrhea, unspecified
CPT/HCPCS: 87015; 87045; 87046; 87177; 87205; 87209; 87324; 87493; 87899